=== PATIENT | female | born 1950 | race Caucasian/White ===

== ENCOUNTER 2023-09-24 16:58 | Emergency (ER) | payer MEDICARE, OTHER, SELFPAY ==
[2023-09-24 17:12] VITALS: BP 100/65
[2023-09-24 17:45] LABS: % Basophils 0.4 % (0-2); % Eosinophils 1.6 % (0-6); % Immature Granulocytes 0.5 % (0-0.5); % Lymphocytes 17.5 % (20.5-51.1); % Monocytes 9.1 % (1.7-9.3); % Neutrophils 70.9 % (42.2-75.2); Absolute Eosinophils 0.1 10^3/uL (0-0.7); Absolute Lymphocytes 1.4 10^3/uL (1.2-3.4); Absolute Monocytes 0.7 10^3/uL (0.1-0.6); Absolute Neutrophils 5.7 10^3/uL (1.4-6.5); Hematocrit 33.5 % (37.0-47.0); Hemoglobin 10.2 g/dL (12.0-16.0); Mean Corp Hgb Conc. 30.4 g/dL (33.0-37.0); Mean Corpuscular Hgb 25.1 pg (27.0-31.0); Mean Corpuscular Volume 82.5 fL (81.0-99.0); Mean Platelet Volume 8.9 fL (7.4-10.4); Nucleated Red Blood Cells % 0 %; Platelet Count 359 10^3/uL (130-400); Red Blood Cell Count 4.06 10^6/uL (4.20-5.40); Red Cell Dist. Width 16.2 % (11.5-14.5); White Blood Cell Count 8.1 10^3/uL (4.8-10.8)
[2023-09-24 17:57] LABS: INR 1.17; PT 15.1 Sec (11.4-14.6)
[2023-09-24 17:58] LABS: ALT (SGPT) 19 U/L (0-35); AST (SGOT) 23 U/L (14-36); Albumin 3.6 g/dl (3.5-5.0); Alkaline Phosphatase 124 U/L (38-126); Blood Urea Nitrogen 24 mg/dl (7-17); Calcium 8.7 mg/dl (8.4-10.2); Carbon Dioxide 30 mmol/L (22-30); Chloride 95 mmol/L (98-107); Glucose 171 mg/dl (70-99); Potassium 3.9 mmol/L (3.5-5.1); Sodium 137 mmol/L (135-145); Total Bilirubin 0.5 mg/dl (0.2-1.3); eGFR 59.12
[2023-09-24 18:24] LABS: Troponin I 0.028 ng/ml
[2023-09-24 18:30] VITALS: BP 117/66
[2023-09-24 18:37] VITALS: BMI 42.5
--- NOTE | 2023-09-24 19:07 | ED.GENMED ---
History of Present Illness
General
Chief Complaint: Dizziness
Source: patient
Exam Limitations: none
Time Seen by Provider: 09/24/23 18:34
Travel History
Have you had any contact with someone who has COVID-19?: No
Do you have any symptoms of coronavirus? Fever > 100 degrees, chills, cough, shortness of breath, sore throat, loss of taste or smell, muscle aches, or headache?: No
History of Present Illness
History of Present Illness:
This is a 72 year old female that comes in with c/o atrial fib and multiple complaints. States that the VN was there today and she was told that she is in atrial fib since September 07. States that she has been feeling dizzy and SOB. The VN called
the computer network engineer office and patient was told to come to the ER. States that she was in the hospital and discharged just before . States that she has had chest heaviness today with the SOB. nausea, vomiting a couple of times a week ago
and diarrhea this week. Sates that she also feels that around her is spinning. Denies any fever, chills, abd pain, headache, urinary burning.
Past History
Past History
ED Past Medical History: Arrthythmia (Atrial fib), Cancer (Skin Cancer), CHF, CVA, HTN, Hypercholesterolemia, IDDM, Hypothyroidism, Psychiatric (depression) and Other (Sleep apnea uses CPAP, lupus cerebritis, PNA, chronic pulmonary edema. Wells's
esophagus, C- diff, Renal calculus, UTI)
ED Past Surgical History: Cardiac (Pacemaker. TAVR), Cholecystectomy, Gynecological (Hysterectomy), Orthopedic (ORIF right ankle) and Other (Parathyroidectomy, cataracts, )
Social History
Tobacco: Non-smoker
Alcohol: None
Personal:
Living: alone
Review of Systems
Review of Systems
All Other Systems: ROS reviewed and negative except as documented in HPI and ROS
Constitutional: Reports no symptoms; Denies fever or chills
EENT: Reports no symptoms
Respiratory: Reports trouble breathing; Denies cough
Cardiac: Reports chest pain (Heaviness)
ABD/GI: Reports nausea, vomiting and diarrhea; Denies abdominal pain
: Reports no symptoms; Denies dysuria, frequency or urgency
Musculoskeletal: Reports no symptoms
Skin: Reports no symptoms
Neurological: Reports dizzy; Denies headache
Psychiatric: Reports no symptoms
Phy Exam
General Physical Exam
General Presentation: no apparent distress
General age: appears stated age
General Skin: warm and dry
General Habitus: elderly
General Mental: alert
General Hydration: appears well hydrated
ENT Exam
ENT Exam: TM's normal, pharynx normal and neck supple
Eye Exam
Eye Exam: EOMI
Cardiovascular Exam
Cardiovascular Exam: regular rate/rhythm, normal peripheral pulses and pacemaker
Pulmonary Exam
Pulmonary Exam: no respiratory distress, no rales, chest non tender, no crackles, no rhonchi, no wheezing, no cough and decreased breath sounds (at bases)
Gastrointestinal Exam
Gastrointestinal Exam: normal bowel sounds, non tender, soft, no organomegaly, no pulsatile mass and non distended
Musculoskeletal Exam
Musculoskeletal Exam: full ROM and no edema
Skin Exam
Skin Exam: normal color, warm/dry, no rash and no petechia
Psychiatric Exam
Psychiatric Exam: normal mood/affect
Course
Orders/Labs/Results
Orders:
Orders
09/24/23 17:15
Electrocardiogram (*1) Urgent
Reason for Study: Atrial Fibrillation
EKG- Treatment ONCE
09/24/23 17:40
Complete Blood Count/With Diff Urgent
Comprehensive Metabolic Panel Urgent
PT/INR [Prothrombin Time] Urgent
Troponin I Urgent
09/24/23 19:06
EKG- Treatment ONCE
CR Chest - 2 Views Urgent
Comment:
Reason For Exam: Chest pain, SOB
09/24/23 19:27
COVID-19 Antigen Urgent
Source: Nasal Swab
09/24/23 19:49
Urinalysis Reflex To Culture Urgent
Date Specimen was Collected: 09/24/23
Time Specimen was Collected: 19:38
Urine Microscopic Reflex Cult Urgent
Urine Culture Urgent
MIKAELA Source: U
Specimen Description:
Date Specimen was Collected: 09/24/23
Time Specimen was Collected: 19:38
09/24/23 20:29
CefTRIAXone [Rocephin] 1,000 mg IV NOW STA
09/24/23 20:40
Electrocardiogram (*1) Urgent
Reason for Study: Chest Pain
Other Reason for Exam: Repeat with Troponin
09/24/23 20:46
Troponin I Urgent
09/24/23 20:47
Sterile Water [Sterile Water For Injection] 10 ml .ROUTE .[facility]
Abnormal Lab Results
09/24/23 09/24/23
17:40 19:49
RBC 4.06 L 10^6/uL
(4.20-5.40)
Hgb 10.2 L g/dL
(12.0-16.0)
Hct 33.5 L %
(37.0-47.0)
MCH 25.1 L pg
(27.0-31.0)
MCHC 30.4 L g/dL
(33.0-37.0)
RDW 16.2 H %
(11.5-14.5)
Absolute Monos (auto) 0.7 H 10^3/uL
(0.1-0.6)
Lymphocytes % 17.5 L %
(20.5-51.1)
PT 15.1 H Sec
(11.4-14.6)
Chloride 95 L mmol/L
(98-107)
BUN 24 H mg/dl
(7-17)
Glucose 171 H mg/dl
(70-99)
Total Protein 6.0 L g/dl
(6.3-8.2)
Urine Bilirubin 1+ A
(Negative)
Leukocyte Esterase Rfl 1+ A
(Negative)
Urine WBC (Reflex) 50-60 A /HPF
(0-5)
Urine Bacteria (Reflex) Moderate A
(Negative)
Urine Glucose 3+ A
(Negative)
09/24/23 17:40
09/24/23 17:40
H/h low. PT 15.1 with INR 1.17, Troponin 0.028, chloride slightly low. Glucose nonfasting. Total protein low.
Positive UTI
Repeat Troponin 0.028
Vital Signs
Initial and Last Documented VS:
Initial Vital Signs
Temp Pulse Resp BP Pulse Ox
99.0 F 83 16 100/65 98
09/24/23 17:12 09/24/23 17:12 09/24/23 17:12 09/24/23 17:12 09/24/23 17:12
Last Documented Vital Signs
Temp Pulse Resp BP Pulse Ox
99.0 F 85 20 117/66 85
09/24/23 17:12 09/24/23 19:45 09/24/23 19:45 09/24/23 18:30 09/24/23 19:39
MDM/Problems Addressed
Differential Diagnosis Includes:
CHF, CT, Angina, COVID
MDM/Problems Addressed:
This is a 72 year old female that comes in with multiple complaints. States that she has had chest heaviness today and SOB. States that the VN told her that she is in atrial fib since September 07. States that she has been dizzy and has some nausea,
vomiting a couple weeks ago and diarrhea this week.
Will check labs, COVID, chest x-ray.
Back into see patient. Explained that both troponin are normal. Patient chest x-ray is normal. However, patient has a UTI and this may be causing her lightheadedness. Will give patient an antibiotic for home. Will have patient follow up with the
Frog Catcher. Patient to return with any concerns.
Chronic conditions affecting care: CAD (CHF) and Other
Acute Exacerbation and/or Progression of Chronic Illness: CAD
*Radiology
Radiology exam reviewed: radiology read reviewed (Chest-No acute cardiopulmonary process)
*Pulse Oximetry
Patient hypoxic: no
*EKG
Interpreted by ED Provider?: Yes
Heart Rate: 89
Rate: normal
Rhythm: a-fib
Whately: left axis deviation
QRS Pattern: left bundle branch block
Ischemia: no ischemia
*Signs Cleaner Interpretation
Rate: normal
Heart Rate: 86
Rhythm: ventricular paced
*Critical Care Note
Total Time (30-74mins, 75-104mins- exclusive of procedures): Not Applicable
ED Attending Note
-
Portions of this chart may have been created with voice recognition software.� Occasional wrong word or��sound alike� substitutions may have occurred due to the inherent limitations of voice recognition software.
Discharge Plan
Departure
Patient Disposition: Home (Routine Discharge)
Date of Disposition: 09/24/23
Time of Disposition: 21:43
Patient with high blood pressure during this ER visit?: No
Condition: Good
Covid-19: Not Applicable
Discharge Problem:
Urinary tract infection, Chest pain
Instructions: Urinary Tract Infection, Adult (DC), Chest Pain CBC Follow Up
Prescriptions:
New
cephalexin 500 mg capsule
500 mg PO BID 7 Days Qty: 14 0RF
No Action
hydroxychloroquine 200 MG tablet
400 mg PO HS
prednisone 1 MG tablet
1 mg PO DAILY
Rx Instructions:
08/22/2023, take with one 5 mg tablet for a total of 6 mg daily.
cevimeline [Evoxac] 30 MG capsule
30 mg PO BID
venlafaxine [Effexor XR] 150 mg Capsule,Extended Release 24hr
300 mg PO DAILY
mycophenolate mofetil [CellCept] 500 mg Tablet
500 mg PO BID
pantoprazole [Protonix] 40 mg Tablet,Delayed Release (Dr/Ec)
40 mg PO BID
rosuvastatin [Crestor] 10 mg Tablet
10 mg PO HS
solifenacin [Vesicare] 10 mg Tablet
10 mg PO DAILY
Iris SoloStar U-300 Insulin 300 unit/mL (1.5 mL) Insulin Pen
55 unit SC DAILY
dapsone 25 mg tablet
50 mg PO DAILY
fexofenadine 180 mg Tablet
180 mg PO HS
carbamazepine [Tegretol] 200 mg tablet
200 mg PO BID
levothyroxine 137 mcg Tablet
137 mcg PO DAILY
aspirin 81 mg Tablet,Delayed Release (Dr/Ec)
81 mg PO DAILY
trazodone 100 mg Tablet
100 mg PO HS
Farxiga 10 mg tablet
10 mg PO DAILY Qty: 30 3RF
famotidine 20 mg Tablet
20 mg PO HS Qty: 0 0RF
furosemide 40 mg Tablet
40 mg PO DAILY
metoprolol tartrate 100 mg Tablet
100 mg PO BID
prednisone 5 mg Tablet
5 mg PO DAILY
Rx Instructions:
08/22/2023, take with one 1 mg tablet for a total of 6 mg daily.
acetaminophen [Tylenol Extra Strength] 500 mg Tablet
1,000 mg PO BIDPRN PRN (Reason: mild pain)
ergocalciferol (vitamin D2) 1,250 mcg (50,000 unit) Capsule
1,250 mcg PO CENTENO
nystatin 100,000 unit/gram Powder
1 applic TOPICAL BID PRN (Reason: apply to B/L groin/under B/L breasts)
insulin lispro [Humalog KwikPen Insulin] 100 unit/mL Insulin Pen
0 sliding scale dose SC DIRECTED
Rx Instructions:
08/22/2023, if BS 90-150 = 0 units; 151-200 = 3 units; 201-250 = 6 units; 251-300 = 9 units; 301-350 = 12 units; >350 = 15 units.
cefuroxime axetil 500 mg Tablet
500 mg PO BID Qty: 8 0RF
Lagevrio (EUA) 200 mg Capsule
800 mg PO BID Qty: 7 0RF
furosemide [Lasix] 20 mg tablet
20 mg PO DAILY Qty: 1 0RF
Referrals:
Rojelio Hernandez MD [Active] - Follow up in 2-3 days
Susana Melendez MD [Family Provider] - Call in 1-3 days for appt
Activity Restrictions/Additional Instructions:
As discussed, your blood work shows some dehydration. Please increase your water intake daily. YOur Chest x-ray is normal. However, you have a urinary tract infection. You have been given IV antibiotic here and a prescription has been sent to your
Pharmacy. You have also been place on the Cardiology hot line. This means that you will be called by the Frog Catcher the next business day and get set up for an appointment and further evaluation. IF YOU HAVE INCREASED OR CHANGING CHEST PAIN,
SHORTNESS OF BREATH, OR YOU HAVE ANY OTHER CONCERNS PLEASE RETURN TO THE EMERGENCY ROOM.
Interventions
Interventions:
*Risk Screen - Suicide Last Done: 09/24/23 18:45
*General Assessment Last Done: 09/24/23 18:44
*Neglect/Abuse Screening Last Done: 09/24/23 18:46
*ED COVID-19 Vaccine History Last Done: 09/24/23 17:12
ED- Neurological Assessment Last Done: 09/24/23 18:42
[2023-09-24 19:57] LABS: COVID-19 Antigen Negative (Negative)
[2023-09-24 20:01] LABS: Urine Albumin Trace (Neg - Trace); Urine Bilirubin 1+ (Negative); Urine Character Slightly Cloudy (Clear); Urine Color Yellow; Urine Glucose 3+ (Negative); Urine Ketone Negative (Negative); Urine Leukocyte 1+ (Negative); Urine Nitrite Negative (Negative); Urine Occult Blood Negative (Negative); Urine Urobilinogen Negative (Neg - 1+)
[2023-09-24 20:09] LABS: Urine Hyaline Cast 0-2 /LPF (0-2); Urine Red Blood Cell 0-2 /HPF (0-2); Urine Squamous Cell 16-20 /LPF (Few); Urine White Cell 50-60 /HPF (0-5)
[2023-09-24 20:10] LABS: Urine Bacteria Moderate (Negative)
[2023-09-24] MEDS: ROCEPHIN 1000 MG IV (20:49)
[2023-09-24 21:15] LABS: Troponin I 0.028 ng/ml
== END 2023-09-24 22:02 | disposition home or self-care (01) ==
LOC: EMR 16:58
PROVIDERS: Clinical Nurse Specialist Family Health; Emergency Medicine; EMERGENCY PHYSICIAN Emergency Medicine; FAMILY PHYSICIAN Student in an Organized Health Care Education/Training Program
DX: N39.0 Urinary tract infection, site not specified (principal); R07.89 Other chest pain; I48.91 Unspecified atrial fibrillation; R06.02 Shortness of breath; I11.0 Hypertensive heart disease with heart failure; I50.9 Heart failure, unspecified; E78.00 Pure hypercholesterolemia, unspecified; E11.9 Type 2 diabetes mellitus without complications; E03.9 Hypothyroidism, unspecified; F32.A Depression, unspecified; G47.30 Sleep apnea, unspecified; I25.119 Atherosclerotic heart disease of native coronary artery with unspecified angina pectoris; Z85.828 Personal history of other malignant neoplasm of skin; Z86.73 Personal history of transient ischemic attack (TIA), and cerebral infarction without residual deficits; Z87.19 Personal history of other diseases of the digestive system; Z87.440 Personal history of urinary (tract) infections; Z87.442 Personal history of urinary calculi; Z90.49 Acquired absence of other specified parts of digestive tract; Z90.710 Acquired absence of both cervix and uterus; Z95.0 Presence of cardiac pacemaker
CPT/HCPCS: 99283; 71046; 80053; 81003; 81015; 84484; 85025; 85610; 87077; 87086; 87186; 87811; 93005

== ENCOUNTER 2023-10-08 07:12 | Day surgery (SDC) | payer MEDICARE, OTHER, SELFPAY ==
[2023-10-08 08:06] VITALS: BMI 36.4
[2023-10-08 08:11] LABS: Glucose - Point of Care 226 mg/dl (70-99)
== END 2023-10-08 09:10 | disposition home or self-care (01) ==
LOC: CATH 07:12
PROVIDERS: ATTENDING PHYSICIAN Internal Medicine Cardiovascular Disease; FAMILY PHYSICIAN Student in an Organized Health Care Education/Training Program
DX: I48.91 Unspecified atrial fibrillation (principal); I48.92 Unspecified atrial flutter; I11.0 Hypertensive heart disease with heart failure; I50.32 Chronic diastolic (congestive) heart failure; I25.10 Atherosclerotic heart disease of native coronary artery without angina pectoris; Z95.5 Presence of coronary angioplasty implant and graft; I44.7 Left bundle-branch block, unspecified; Z95.0 Presence of cardiac pacemaker; E78.5 Hyperlipidemia, unspecified; E11.9 Type 2 diabetes mellitus without complications; E03.9 Hypothyroidism, unspecified; G47.33 Obstructive sleep apnea (adult) (pediatric); K21.9 Gastro-esophageal reflux disease without esophagitis; Z86.16 Personal history of COVID-19; Z79.84 Long term (current) use of oral hypoglycemic drugs; Z79.4 Long term (current) use of insulin
CPT/HCPCS: 82962; 92960; 93005

== ENCOUNTER → 2023-10-15 10:35 | Outpatient (REF) | payer MEDICARE, OTHER, SELFPAY ==
[2023-10-15 10:56] LABS: Albumin 3.3 g/dl (3.5-5.0); Blood Urea Nitrogen 19 mg/dl (7-17); Calcium 7.5 mg/dl (8.4-10.2); Carbon Dioxide 33 mmol/L (22-30); Chloride 99 mmol/L (98-107); Glucose 168 mg/dl (70-99); Phosphorus 4.5 mg/dl (2.5-4.5); Potassium 3.4 mmol/L (3.5-5.1); Sodium 136 mmol/L (135-145); eGFR 59.12
== END ==
LOC: CLAB 10:35
PROVIDERS: ATTENDING PHYSICIAN Student in an Organized Health Care Education/Training Program
DX: I50.1 Left ventricular failure, unspecified (principal)
CPT/HCPCS: 36415; 80069

== ENCOUNTER 2023-10-22 10:32 | Outpatient (RCR) | payer MEDICARE, OTHER, SELFPAY ==
[2023-10-22] VITALS (10 sets, daily range): BP systolic 99–137; BP diastolic 40–73
[2023-10-22] MEDS: BENADRYL 25 MG PO (11:17)
[2023-10-22] MEDS: TYLENOL 650 MG PO (11:17)
[2023-10-22] MEDS: GAMMAGARD 200 IV ×2 (11:23→13:25)
[2023-10-22 12:30] LABS: IgG 378 mg/dl (700-1600)
== END 2023-10-25 23:59 | disposition home or self-care (01) ==
LOC: OID 10:32
PROVIDERS: ATTENDING PHYSICIAN Allergy & Immunology; FAMILY PHYSICIAN Student in an Organized Health Care Education/Training Program
DX: D80.8 Other immunodeficiencies with predominantly antibody defects (principal); D80.9 Immunodeficiency with predominantly antibody defects, unspecified (principal); M32.9 Systemic lupus erythematosus, unspecified; I50.32 Chronic diastolic (congestive) heart failure; I48.0 Paroxysmal atrial fibrillation; M06.9 Rheumatoid arthritis, unspecified; Z95.2 Presence of prosthetic heart valve; M35.00 Sjogren syndrome, unspecified
CPT/HCPCS: 82784; 96365; 96366; J1569

== ENCOUNTER → 2023-10-25 11:14 | Outpatient (REF) | payer MEDICARE, OTHER, SELFPAY ==
[2023-10-25 12:48] LABS: Blood Urea Nitrogen 25 mg/dl (7-17); Calcium 8.4 mg/dl (8.4-10.2); Carbon Dioxide 35 mmol/L (22-30); Chloride 99 mmol/L (98-107); Glucose 262 mg/dl (70-99); Sodium 139 mmol/L (135-145); eGFR > 60.00
== END ==
LOC: OLAB 11:14
PROVIDERS: ATTENDING PHYSICIAN Internal Medicine; FAMILY PHYSICIAN Student in an Organized Health Care Education/Training Program
DX: I50.33 Acute on chronic diastolic (congestive) heart failure (principal)
CPT/HCPCS: 36415; 80048

== ENCOUNTER 2023-11-14 22:04 | Inpatient (IN) | payer MEDICARE, OTHER, SELFPAY ==
[2023-11-14] VITALS (9 sets, daily range): BP systolic 95–143; BP diastolic 58–88; PULSE 80–95; BMI 36.8
[2023-11-14 18:59] LABS: % Basophils 0.1 % (0-2); % Eosinophils 0.8 % (0-6); % Immature Granulocytes 0.5 % (0-0.5); % Lymphocytes 10.9 % (20.5-51.1); % Monocytes 7.6 % (1.7-9.3); % Neutrophils 80.1 % (42.2-75.2); Absolute Eosinophils 0.1 10^3/uL (0-0.7); Absolute Lymphocytes 0.9 10^3/uL (1.2-3.4); Absolute Monocytes 0.6 10^3/uL (0.1-0.6); Absolute Neutrophils 6.4 10^3/uL (1.4-6.5); Hematocrit 29.9 % (37.0-47.0); Hemoglobin 9.2 g/dL (12.0-16.0); Mean Corp Hgb Conc. 30.8 g/dL (33.0-37.0); Mean Corpuscular Hgb 24.3 pg (27.0-31.0); Mean Corpuscular Volume 79.1 fL (81.0-99.0); Mean Platelet Volume 9.2 fL (7.4-10.4); Nucleated Red Blood Cells % 0 %; Platelet Count 281 10^3/uL (130-400); Red Blood Cell Count 3.78 10^6/uL (4.20-5.40); Red Cell Dist. Width 17.2 % (11.5-14.5)
[2023-11-14 19:12] LABS: ALT (SGPT) 17 U/L (0-35); AST (SGOT) 23 U/L (14-36); Albumin 3.5 g/dl (3.5-5.0); Alkaline Phosphatase 148 U/L (38-126); Blood Urea Nitrogen 17 mg/dl (7-17); Calcium 7.9 mg/dl (8.4-10.2); Carbon Dioxide 30 mmol/L (22-30); Chloride 97 mmol/L (98-107); Estimated Creatinine Clearance 83 ml/min; Glucose 167 mg/dl (70-99); Potassium 3.3 mmol/L (3.5-5.1); Sodium 135 mmol/L (135-145); Total Bilirubin 0.4 mg/dl (0.2-1.3); eGFR > 60.00
--- NOTE | 2023-11-14 19:21 | ED.GENMED ---
History of Present Illness
<Liz Ro PA-C - Last Filed: 11/14/23 23:38>
General
Chief Complaint: Fainting Sensation
Source: patient and family
Exam Limitations: none
Time Seen by Provider: 11/14/23 18:28
Nursing documentation reviewed up to this point in time: agreed with
Travel History
Have you had any contact with someone who has COVID-19?: No
Do you have any symptoms of coronavirus? Fever > 100 degrees, chills, cough, shortness of breath, sore throat, loss of taste or smell, muscle aches, or headache?: No
History of Present Illness
History of Present Illness:
pt is a72 y/o F with h/o s/p TAVR 06/2023
afib s/p ablation 3 weeks ago
chf on lasix 60 mg daily (christin vang, irina); 60 mg bid M,W,F and if pt is > 214 pounds;
she is here because of a near syncope episode when she was walking to the bathroom this evening. she says she stood and felt lightheaded, which she normally has since her TAVR. she was able to take some steps and halways there stopped because she
wasn't sure if she was jose luis to make it but says that she was holding onto her walker and steadied herself and got to the bathroom but then felt globally weak, like her legs gave out adn she lowered self to the ground on butt. no head strike
sh eis on thinners
daughter helped her up
in bed she feels fine but up on her feet she feels lightheaded all the time
she is on metoprolol 100 mg bid
the past 3 days she has had ewieght > 214 so she has been doing bid dosing of her lasix 60 mg
she feels frustrated because she has to urinate all the time. and still feels SOB.
Past History
<Liz Ro PA-C - Last Filed: 11/14/23 23:38>
Past History
ED Past Medical History: Arrthythmia (Atrial fib), Cancer (Skin Cancer), CHF, CVA, HTN, Hypercholesterolemia, IDDM, Hypothyroidism, Psychiatric (depression) and Other (Sleep apnea uses CPAP, lupus cerebritis, PNA, chronic pulmonary edema. Wells's
esophagus, C- diff, Renal calculus, UTI)
ED Past Surgical History: Cardiac (Pacemaker. TAVR), Cholecystectomy, Gynecological (Hysterectomy), Orthopedic (ORIF right ankle) and Other (Parathyroidectomy, cataracts, )
Social History
Tobacco: Non-smoker
Alcohol: None
Personal:
Living: alone
Review of Systems
<SONIDO Candelario Last Filed: 11/14/23 23:38>
Review of Systems
Allergies reviewed?: Yes
All Other Systems: Not applicable
Phy Exam
<SONIDO Candelario Last Filed: 11/14/23 23:38>
Physical Exam
Physical Exam:
GENERAL: Alert , in no apparent distress
EYE: pupils equal and reactive
NECK: Supple
ENT: o/p clr, mmm.
CARDIAC: Regular rate and rhythm .mild edema
right upper [place]
left upper chest wall pacer
LUNGS: no obviuos crackels, no resp distress,
ABDOMEN: Soft, without focal tenderness, no r/g, no cvat, normal bowel sounds
NEUROLOGICAL: Alert and oriented, no focal neuro deficits
SKIN: Warm and dry, superficial abrasion right foremarm
MUSCULOSKELETAL: mild edema, well perfused. neg ludwig's sign
full rom of elbow/forearm/wirst
PSYCH: Normal and appropriate interaction.
Course
<SONIDO Candelario Last Filed: 11/14/23 23:38>
Orders/Labs/Results
Orders:
Orders
11/14/23 Dinner
1800 calorie (15 carb) Diabetic
At Your Request: Full Participation
Fluid Restriction: 1440 mL/day (48 oz)
11/14/23 18:01
EKG [Electrocardiogram (*1)] Urgent
Reason for Study: Other
Other Reason for Exam: near syncope
11/14/23 18:02
EKG- Treatment ONCE
11/14/23 18:40
Complete Blood Count/With Diff Urgent
Comprehensive Metabolic Panel Urgent
NT-proBNP Urgent
Comment: ADD ON
Troponin I Urgent
11/14/23 19:21
Orthostatic VS- Treatment ONCE
11/14/23 19:26
0.9% Sodium Chloride 250 ml [Nss] 250 ml IV BOLUS
11/14/23 19:27
Potassium Chloride [KCl] 20 meq PO NOW STA
11/14/23 19:34
CR Chest - 2 Views Urgent
Comment:
Reason For Exam: near syncope, chf
11/14/23 20:20
Add On- LAB Urgent
Tests Added?: bnp
11/14/23 21:30
Admit/Transfer Patient As Directed
Co-Sign Provider:
Level of Care: Inpatient admission
Assign to:: Telemetry
Physician / Group: cristopher velazco
Diagnosis: orthostatic hypotension 2/2 to overdiuresis , hypokalemia
Reason for Telemetry: Arrhythmia
Date to Stop Telemetry: 11/17/23
Time to Stop Telemetry: 11:00
Reason for Hospitalization: orthostatic hypotension 2/2 to overdiuresis , hypokalemia
Expected length of stay greater than two midnights?: Yes
ELOS- Estimated Length of Stay in days: 3
I certify the patient meets the requirements for IP care: Yes
Code Status As Directed
Resuscitation Status: Full Code
11/14/23 22:22
Dextrose 50%-Water [Dextrose 50% Syringe] 12.5 grams IV [id number] PRN
Famotidine [Pepcid] 20 mg PO HS
Glucagon [GlucaGen] 1 mg IM PRN PRN
Hydroxychloroquine [Plaquenil] 400 mg PO HS
Rosuvastatin Calcium [Crestor] 10 mg PO HS
Trazodone [Desyrel] 100 mg PO HS
11/14/23 22:22
VTE Contraindication Routine
VTE Mechanical Device Contraindication: Medical Contraindication
Pharmocologic Contraindication: Medical Contraindication
Comment: pt on eliquis
Activity As Directed
Activity Level: With Assistance
Bedside Glucose Monitoring As Directed
Frequency: AC&HS
Comment: Change to q6h if pt on TPN, tube feeding or not eating
Intake/ Output As Directed
Frequency: Per unit guidelines
Orthostatic Vital Signs As Directed
Orthostatic VS Frequency: BID
Vital Signs As Directed
Frequency: Per unit guidelines
Weight As Directed
Frequency: Daily
O2 Therapy [RESP] Routine
Nasal Cannula Liter Flow: 2 LPM
Titrate/Wean O2 to maintain O2 sat greater than (%): 90
Special Instructions: wears nasal cpillow at hs with 2 ltiers
Ot Eval And Treat Routine
Pt Eval And Treat Routine
Activity Level: As Tolerated
11/14/23 23:00
Loratadine [Claritin] 10 mg PO HS
11/15/23 06:00
Basic Metabolic Panel IN AM
Complete Blood Count/With Diff IN AM
Glycohemoglobin (HgbA1c) IN AM
11/15/23 07:00
Levothyroxine [Synthroid] 137 mcg PO DAILY@0700
11/15/23 07:30
Insulin Aspart Corrective Low [Novolog Flexpen-Low Resistance] See Protocol SC AC
11/15/23 08:00
Apixaban [Eliquis] 5 mg PO BID
Aspirin Low Dose EC [Aspir Low (Enteric Coated)] 81 mg PO DAILY
Carbamazepine [Tegretol] 200 mg PO BID
Dapagliflozin [Farxiga] 10 mg PO DAILY
Dapsone 50 mg PO DAILY
Insulin Glargine Lantus [Lantus] 43 units Subcutaneous Insulin Syringe [Syringe-Insulin] 0 unit SC DAILY
Metoprolol [Lopressor] 100 mg PO BID
Mycophenolate Mofetil 500 mg PO BID
Pantoprazole [Protonix] 40 mg PO BID
Prednisone [Deltasone] 1 mg PO DAILY
Prednisone [Deltasone] 5 mg PO DAILY
Tolterodine Extended Release [Detrol LA] 4 mg PO DAILY
Venlafaxine Extended Release [Effexor Xr] 300 mg PO DAILY
cevimeline [Evoxac] 30 mg PO BID
11/16/23 06:00
Basic Metabolic Panel IN AM
Complete Blood Count/With Diff IN AM
11/17/23 06:00
Basic Metabolic Panel IN AM
Complete Blood Count/With Diff IN AM
11/17/23 11:00
DC Protocol for Telemetry ONCE
11/18/23 08:00
Ergocalciferol [Drisdol (Vitamin D2)] 50,000 units PO CENTENO
Abnormal Lab Results
11/14/23
18:40
RBC 3.78 L 10^6/uL
(4.20-5.40)
Hgb 9.2 L g/dL
(12.0-16.0)
Hct 29.9 L %
(37.0-47.0)
MCV 79.1 L fL
(81.0-99.0)
MCH 24.3 L pg
(27.0-31.0)
MCHC 30.8 L g/dL
(33.0-37.0)
RDW 17.2 H %
(11.5-14.5)
Absolute Lymphs (auto) 0.9 L 10^3/uL
(1.2-3.4)
Neutrophils % 80.1 H %
(42.2-75.2)
Lymphocytes % 10.9 L %
(20.5-51.1)
Potassium 3.3 L mmol/L
(3.5-5.1)
Chloride 97 L mmol/L
(98-107)
Glucose 167 H mg/dl
(70-99)
Calcium 7.9 L mg/dl
(8.4-10.2)
Alkaline Phosphatase 148 H U/L
(38-126)
Total Protein 6.0 L g/dl
(6.3-8.2)
11/14/23 18:40
11/14/23 18:40
Vital Signs
Initial and Last Documented VS:
Initial Vital Signs
Temp Pulse Resp BP Pulse Ox
98.2 F 92 27 143/72 94
11/14/23 18:03 11/14/23 18:03 11/14/23 18:03 11/14/23 18:03 11/14/23 18:03
Last Documented Vital Signs
Temp Pulse Resp BP Pulse Ox
98.2 F 84 16 122/75 92
11/14/23 18:03 11/14/23 21:00 11/14/23 21:00 11/14/23 21:00 11/14/23 21:00
Odalislt;Trent Betancur, - Last Filed: 11/14/23 19:39>
Orders/Labs/Results
Orders:
Orders
11/14/23 Dinner
1800 calorie (15 carb) Diabetic
At Your Request: Full Participation
Fluid Restriction: 1440 mL/day (48 oz)
11/14/23 18:01
EKG [Electrocardiogram (*1)] Urgent
Reason for Study: Other
Other Reason for Exam: near syncope
11/14/23 18:02
EKG- Treatment ONCE
11/14/23 18:40
Complete Blood Count/With Diff Urgent
Comprehensive Metabolic Panel Urgent
NT-proBNP Urgent
Comment: ADD ON
Troponin I Urgent
11/14/23 19:21
Orthostatic VS- Treatment ONCE
11/14/23 19:26
0.9% Sodium Chloride 250 ml [Nss] 250 ml IV BOLUS
11/14/23 19:27
Potassium Chloride [KCl] 20 meq PO NOW STA
11/14/23 19:34
CR Chest - 2 Views Urgent
Comment:
Reason For Exam: near syncope, chf
11/14/23 20:20
Add On- LAB Urgent
Tests Added?: bnp
11/14/23 21:30
Admit/Transfer Patient As Directed
Co-Sign Provider:
Level of Care: Inpatient admission
Assign to:: Telemetry
Physician / Group: cristopher velazco
Diagnosis: orthostatic hypotension 2/2 to overdiuresis , hypokalemia
Reason for Telemetry: Arrhythmia
Date to Stop Telemetry: 11/17/23
Time to Stop Telemetry: 11:00
Reason for Hospitalization: orthostatic hypotension 2/2 to overdiuresis , hypokalemia
Expected length of stay greater than two midnights?: Yes
ELOS- Estimated Length of Stay in days: 3
I certify the patient meets the requirements for IP care: Yes
Code Status As Directed
Resuscitation Status: Full Code
11/14/23 22:22
Dextrose 50%-Water [Dextrose 50% Syringe] 12.5 grams IV [id number] PRN
Famotidine [Pepcid] 20 mg PO HS
Glucagon [GlucaGen] 1 mg IM PRN PRN
Hydroxychloroquine [Plaquenil] 400 mg PO HS
Rosuvastatin Calcium [Crestor] 10 mg PO HS
Trazodone [Desyrel] 100 mg PO HS
11/14/23 22:22
VTE Contraindication Routine
VTE Mechanical Device Contraindication: Medical Contraindication
Pharmocologic Contraindication: Medical Contraindication
Comment: pt on eliquis
Activity As Directed
Activity Level: With Assistance
Bedside Glucose Monitoring As Directed
Frequency: AC&HS
Comment: Change to q6h if pt on TPN, tube feeding or not eating
Intake/ Output As Directed
Frequency: Per unit guidelines
Orthostatic Vital Signs As Directed
Orthostatic VS Frequency: BID
Vital Signs As Directed
Frequency: Per unit guidelines
Weight As Directed
Frequency: Daily
O2 Therapy [RESP] Routine
Nasal Cannula Liter Flow: 2 LPM
Titrate/Wean O2 to maintain O2 sat greater than (%): 90
Special Instructions: wears nasal cpillow at hs with 2 ltiers
Ot Eval And Treat Routine
Pt Eval And Treat Routine
Activity Level: As Tolerated
11/14/23 23:00
Loratadine [Claritin] 10 mg PO HS
11/15/23 06:00
Basic Metabolic Panel IN AM
Complete Blood Count/With Diff IN AM
Glycohemoglobin (HgbA1c) IN AM
11/15/23 07:00
Levothyroxine [Synthroid] 137 mcg PO DAILY@0700
11/15/23 07:30
Insulin Aspart Corrective Low [Novolog Flexpen-Low Resistance] See Protocol SC AC
11/15/23 08:00
Apixaban [Eliquis] 5 mg PO BID
Aspirin Low Dose EC [Aspir Low (Enteric Coated)] 81 mg PO DAILY
Carbamazepine [Tegretol] 200 mg PO BID
Dapagliflozin [Farxiga] 10 mg PO DAILY
Dapsone 50 mg PO DAILY
Insulin Glargine Lantus [Lantus] 43 units Subcutaneous Insulin Syringe [Syringe-Insulin] 0 unit SC DAILY
Metoprolol [Lopressor] 100 mg PO BID
Mycophenolate Mofetil 500 mg PO BID
Pantoprazole [Protonix] 40 mg PO BID
Prednisone [Deltasone] 1 mg PO DAILY
Prednisone [Deltasone] 5 mg PO DAILY
Tolterodine Extended Release [Detrol LA] 4 mg PO DAILY
Venlafaxine Extended Release [Effexor Xr] 300 mg PO DAILY
cevimeline [Evoxac] 30 mg PO BID
11/16/23 06:00
Basic Metabolic Panel IN AM
Complete Blood Count/With Diff IN AM
11/17/23 06:00
Basic Metabolic Panel IN AM
Complete Blood Count/With Diff IN AM
11/17/23 11:00
DC Protocol for Telemetry ONCE
11/18/23 08:00
Ergocalciferol [Drisdol (Vitamin D2)] 50,000 units PO CENTENO
Abnormal Lab Results
11/14/23
18:40
RBC 3.78 L 10^6/uL
(4.20-5.40)
Hgb 9.2 L g/dL
(12.0-16.0)
Hct 29.9 L %
(37.0-47.0)
MCV 79.1 L fL
(81.0-99.0)
MCH 24.3 L pg
(27.0-31.0)
MCHC 30.8 L g/dL
(33.0-37.0)
RDW 17.2 H %
(11.5-14.5)
Absolute Lymphs (auto) 0.9 L 10^3/uL
(1.2-3.4)
Neutrophils % 80.1 H %
(42.2-75.2)
Lymphocytes % 10.9 L %
(20.5-51.1)
Potassium 3.3 L mmol/L
(3.5-5.1)
Chloride 97 L mmol/L
(98-107)
Glucose 167 H mg/dl
(70-99)
Calcium 7.9 L mg/dl
(8.4-10.2)
Alkaline Phosphatase 148 H U/L
(38-126)
Total Protein 6.0 L g/dl
(6.3-8.2)
11/14/23 18:40
11/14/23 18:40
Vital Signs
Initial and Last Documented VS:
Initial Vital Signs
Temp Pulse Resp BP Pulse Ox
98.2 F 92 27 143/72 94
11/14/23 18:03 11/14/23 18:03 11/14/23 18:03 11/14/23 18:03 11/14/23 18:03
Last Documented Vital Signs
Temp Pulse Resp BP Pulse Ox
98.2 F 84 16 122/75 92
11/14/23 18:03 11/14/23 21:00 11/14/23 21:00 11/14/23 21:00 11/14/23 21:00
<Liz Ro PA-C - Last Filed: 11/14/23 23:38>
MDM/Problems Addressed
Differential Diagnosis Includes:
near syncope, orthostasis, dysrhythmia
MDM/Problems Addressed:
72 y/o F with h/o TAVR 06/2023, pacer for complete heart block, afib s/p cardioversion 3 weeks ago on eliquis, chf on lasix, lupus on immune suppressants; here with near syncope and orthostatic hypotension; got lightheaded with standing and legs
weak and fell but no head strike, onto buttocks; here patient was orthostati with standing, dropped bp significantly and felt lightheaded briefly before being able to walk to the bathroom
; has a pacer but we cannot interrogate because the equipment is down, rep coming tomorrow;
perhaps pt overdiuresced vs. overmedicated with bb
d/w ed attending
we did not feel comfortable d/c home without pacer interrogation
will give chance to slowly hydrate
cards consult
<Liz Ro PA-C - Last Filed: 11/14/23 23:38>
*Critical Care Note
Total Time (30-74mins, 75-104mins- exclusive of procedures): Not Applicable
ED Attending Note
<Liz Ro PA-C - Last Filed: 11/14/23 23:38>
-
Portions of this chart may have been created with voice recognition software.� Occasional wrong word or��sound alike� substitutions may have occurred due to the inherent limitations of voice recognition software.
<Trent Betancur DO - Last Filed: 11/14/23 19:39>
ED Attending Note
Patient seen and examined by attending physician: Yes
I performed the substantive portion of visit, reviewed & personally made and approve the management plan that is documented in note by myself or YAZMIN.: Yes
ED Attending Note:
Seen with TEE examined independently by ankush 72-year-old female melanoma survivor lupus TAVR procedure AF pacemaker has been having issues with dizziness weakness orthostasis heart failure since the procedure looks orthostatic here she is
anticoagulated will interrogate her device, check chest x-ray proBNP consideration for gentle hydration
Discharge Plan
Departure
Patient Disposition: Admit
Date of Disposition: 11/14/23
Time of Disposition: 20:32
Admit to: Telemetry
Presentation/result/management discussed w/ accepting MD/DO: Hospitalist
Condition: Fair
Covid-19: Not Applicable
Discharge Problem:
Orthostatic hypotension
Interventions
Interventions:
*Risk Screen - Suicide Last Done: 11/14/23 18:03
*General Assessment Last Done: 11/14/23 18:03
*Neglect/Abuse Screening Last Done: 11/14/23 18:03
ED- Fall Risk Assessment Last Done: 11/14/23 18:11
*ED COVID-19 Vaccine History Last Done: 11/14/23 18:03
ED- Cardiac Assessment Last Done: 11/14/23 18:11
ED- Neurological Assessment Last Done: 11/14/23 18:11
[2023-11-14 19:22] LABS: Troponin I 0.028 ng/ml
[2023-11-14] MEDS: KCL 20 MEQ PO (19:49)
[2023-11-14] MEDS: NSS 250 IV (19:52)
--- NOTE | 2023-11-14 21:03 | HPS.HSE ---
Addendum entered and electronically signed by Ora Colby MD 11/14/23 21:50:
Patient seen and examined independently with MOTORIZED SQUAD SERGEANT. 72-year-old female past medical history of atrial fibrillation status post ablation 3 weeks ago, permanent pacemaker, sleep apnea on CPAP, lupus, rheumatoid arthritis, Sjogren's, hypothyroidism,
diabetes, chronic anemia, GERD/Wells's esophagus, hyperlipidemia, anxiety, presenting with near syncopal episode while walking to the bathroom with lightheadedness and sustaining a right forearm skin tear. She underwent TAVR in June and since
then she has been ongoing lightheadedness.
Orthostatics positive likely due to overdiuresis. Hypokalemia secondary to diuretics hold diuretics for now, will need cardiology input for managing her diuretics. Replete potassium.
Original Note:
Family Physician
-
Family Physician: Susana Melendez MD
Chief Complaint
-
Dizziness, lightheadedness
History of Present Illness
72-year-old female who had near syncopal episode when she was walking to the bathroom this evening. She reports feeling lightheaded while holding onto her walker she paused to stop and steady herself she felt her legs are getting give out so she
lowered herself to the ground. She reports sustaining a right forearm skin tear while lowering herself to the ground. She reports having weight gain of 2 pounds over the past 3 days so she increased her Lasix from 60 mg daily (tuthSaSu) to 60 mg
twice daily for the past 3 days. She is status post A-fib ablation 10/08/2023. She has past medical history of CHF, A-fib, pacemaker, TAVR HTN, HLD, DM2, hypothyroidism, RA, systemic lupus depression, sleep apnea uses CPAP, lupus cerebritis, PNA,
Wells's esophagus, C. difficile, renal calculi, UTI, skin cancer.
Medical History
Past Medical History
Past Medical History: Reports Other
Additional Past Medical History:
Coronary Artery Disease s/p Stent
Aortic Stenosis s/p TAVR
Chronic HFpEF
Heart Block s/p Pacemaker
Essential Hypertension
Hyperlipidemia
Diabetes Mellitus, Type II
Diabetic Neuropathy
Hypothyroidism
Cognitive Dysfunction
Obstructive Sleep Apnea
GERD
Wells Esophagus
Sjogren's Syndrome
Rheumatoid Arthritis
Lupus
Depression
Past Surgical History: Reports Other
Additional Past Surgical History:
A-fib ablation 10/08/2023
TAVR
Permanent Pacemaker
Port Placement
Cholecystectomy
Lithotripsy
Rhizotomy
Resection of Malignant Melanoma
ORIF Right Ankle
Parathyroidectomy
Social History
Tobacco: Non-smoker
Alcohol: None
Drug: None
Living: With Family
Employment: Retired (RN)
Family History
Family History: Not pertinent
Allergies / Home Medications
Allergies reflects when Allergies were last updated in [facility].
Home Medications with original date entered in [facility]
Allergy/Medication List:
Allergies
Allergy/AdvReac Type Severity Reaction Status Date / Time
Iodinated Contrast Media Allergy Severe Anaphylaxis Verified 11/14/23 18:10
[IV Dye, Iodine Containing
Contrast ]
armodafinil [From Nuvigil] AdvReac Severe MAKES PT Verified 11/14/23 18:10
SUICIDAL,
Agnieszka
azathioprine sodium AdvReac Severe 105 FEVER Verified 11/14/23 18:10
[From Imuran]
gabapentin AdvReac Severe agnieszka Verified 11/14/23 18:10
morphine sulfate AdvReac Severe 'HALLUCINAT Verified 11/14/23 18:10
[From MS Contin] IONS'
ondansetron AdvReac Severe lost BP Verified 11/14/23 18:10
and pulse
vilazodone HCl [From Viibryd] AdvReac Severe 'MANIC' Verified 11/14/23 18:10
adhesive AdvReac Mild Skin tears Verified 11/14/23 18:10
Home Medications
hydroxychloroquine 200 mg tablet 400 mg PO HS Autoimmune Disorder 03/16/15
cevimeline 30 mg capsule (Evoxac) 30 mg PO BID DRY MOUTH 02/01/21
insulin glargine U-300 conc 300 unit/mL (1.5 mL) subcutaneous pen (Toujeo SoloStar U-300 Insulin) 54 unit SC DAILY Diabetes 05/15/22
mycophenolate mofetil 500 mg tablet (CellCept) 500 mg PO BID Immunosuppressant 05/15/22
pantoprazole 40 mg tablet,delayed release (Protonix) 40 mg PO BID Gastrointestinal issue 05/15/22
rosuvastatin 10 mg tablet (Crestor) 10 mg PO HS High cholesterol 05/15/22
solifenacin 10 mg tablet (Vesicare) 10 mg PO DAILY Urinary issue 05/15/22
venlafaxine 150 mg capsule,extended release 24 hr (Effexor XR) 300 mg PO DAILY Mental Health/Anxiety 05/15/22
dapsone 25 mg tablet 50 mg PO DAILY lupus 05/17/22
carbamazepine 200 mg tablet (Tegretol) 200 mg PO BID trigeminal neuralgia 11/06/22
fexofenadine 180 mg tablet 180 mg PO HS Allergies 11/06/22
levothyroxine 137 mcg tablet 137 mcg PO DAILY Thyroid 12/04/22
trazodone 100 mg tablet 100 mg PO HS Sleep 07/12/23
dapagliflozin propanediol 10 mg tablet (Farxiga) 10 mg PO DAILY Diabetes #30 tabs 07/17/23
famotidine 20 mg tablet 20 mg PO HS #0 tabs 08/10/23
ergocalciferol (vitamin D2) 1,250 mcg (50,000 unit) capsule 1,250 mcg PO CENTENO Supplement 08/22/23
insulin lispro 100 unit/mL subcutaneous pen (Humalog KwikPen (U-100) Insulin) 0 sliding scale dose SC AC Diabetes 08/22/23
metoprolol tartrate 100 mg tablet 100 mg PO BID Blood Pressure 08/22/23
prednisone 5 mg tablet 5 mg PO DAILY Immunosuppressant 08/22/23
furosemide 40 mg tablet (Lasix) 60 mg PO SUTUTHSA 10/22/23
Lasix 60 mg PO MOWEFR 11/14/23
apixaban 5 mg tablet (Eliquis) 5 mg PO BID 11/14/23
aspirin 81 mg tablet,delayed release 81 mg PO DAILY 11/14/23
prednisone 1 mg tablet 1 mg PO DAILY 11/14/23
Review of Systems
-
History Source: Patient and Family (daughter )
A 12 point ROS was completed and negative except as noted: Yes
Constitutional: Denies Fever
EENT: Denies Tearing or Runny Nose
Respiratory: Denies Cough or Trouble Breathing
Cardiac: Denies Chest Pain, Diaphoresis, Palpitations or Syncope
Abdomen/GI: Denies Abdominal Pain, Nausea, Vomiting, Diarrhea, Constipated or Bloody Stools
: Denies Dysuria, Frequency, Flank Pain, Incontinence or Difficulty Voiding
Musculoskeletal: Denies Joint Pain
Skin: Denies Itching or Rash
Neurological: Reports Dizzy and Weakness; Denies Headache
Endocrine: Reports No Symptoms
Hematologic/Lymphatic: Reports No Symptoms
Psych: Reports Calm
Physical Exam
Vital Signs
Vital Signs
Temp Pulse Resp BP Pulse Ox
98.2 F 84 16 122/75 92
11/14/23 18:03 11/14/23 21:00 11/14/23 21:00 11/14/23 21:00 11/14/23 21:00
Physical Exam
General: Comfortable and Conversant; No Pain, Fever or Chills
HEENT: NormoCephalic, Anicteric, Moist mucous membranes, PERRLA, [place] Conjunctivae and No Ptosis
Respiratory: Clear; No Wheezes, Rales or Rhonchi
Cardiac: S1/S2 and Regular Rhythm; No Murmur, Rub, Gallop or Peripheral Edema
Breast: Deferred by me
GI: Soft, Non Tender, Non Distended, Normal Bowel Sounds and No Hepatosplenomegaly
Rectal: Deferred by Provider
Genito-urinary: Deferred by me
Musculoskeletal: No Clubbing, No Cyanosis and No Edema
Skin: Warm and Dry; No Rash
Neuro: AO x 3, No Motor Deficits, Nonfocal/grossly intact, Cranial Nerves Intact and No Sensory Deficits; No Slurred Speech, Facial Droop or Tremors
Psych: Calm
Laboratory Results
-
11/14/23 18:40
11/14/23 18:40
Laboratory Results
Total Bilirubin 0.4 mg/dl (0.2-1.3) 11/14/23 18:40
AST 23 U/L (14-36) 11/14/23 18:40
ALT 17 U/L (0-35) 11/14/23 18:40
Alkaline Phosphatase 148 U/L (38-126) H 11/14/23 18:40
Troponin I 0.028 ng/ml 11/14/23 18:40
Impression/Plan
-
Impression/plan:
Admit to telemetry
#Orthostatic hypotension given recent increased diuretic use
recently increased lasix to 60 mg bid for the last 3 days(11/10,11/11,11/12) versus --sun
Supine 139/65, HR 80
Sitting 121/73, HR 90
Standing 95/60, HR 95
-cont metoprolol tartrate 100 mg twice daily with hold parameters
-Consult CBC cardiology regarding Lasix dosage administration resumption and instructions for wt gain
#Hypokalemia secondary to increased diuretic use
K3.3
-Give KCl 40 mEq now
follow bmp
#Pacemaker permanent
#A-fib
#Ablation approximately 10/08/2023
-Continue Eliquis 5 mg twice daily
-cont metoprolol 100 mg bid with hold parameters
#Lupus hx
-Continue dapsone, hydroxychloroquine 400 mg at bedtime
#Rheumatoid arthritis on immunosuppressant
-CellCept 500 mg twice daily, prednisone 6 mg daily
#Hypothyroidism
-Continue levothyroxine 137 mg p.o. daily
#DM2
Accu-Cheks with SSI, check HgbA1c
Patient on Toujeo U 300 54 units subcu daily, Farxiga 10 mg daily
#Chronic anemia-microcytic
Hgb 9.2 appears baseline
#GERD/Wells's esophagus
Continue Protonix 40 mg twice daily, Pepcid 20 mg at bedtime
#HLD
-Continue Crestor
#Anxiety
-Continue Effexor XR 300 mg daily
#Trigeminal neuralgia
Continue Tegretol 200 mg twice daily
#Chronic urinary incontinence
-Continue Vesicare 10 mg daily
#Insomnia
trazodone 100 mg at bedtime
#SJogrens syndrome
Continue Evoxac
#Obesity due to excess calorie consumption�BMI 36.8 kg
Low-fat 1800 ADA healthy heart diet
DVT prophylaxis
Continue DEPUTY SHERIFF GENERALIST/BAILIFF Eliquis
Full code per patient
[2023-11-14 21:08] LABS: NT-proBNP 1520 pg/ml
[2023-11-14 23:26] LABS: Glucose - Point of Care 197 mg/dl (70-99)
[2023-11-14] MEDS: DESYREL PO (23:26)
[2023-11-14] MEDS: PLAQUENIL 400 MG PO (23:26)
[2023-11-14] MEDS: CLARITIN 10 MG PO (23:26)
[2023-11-14] MEDS: PEPCID 20 MG PO (23:26)
[2023-11-14] MEDS: CRESTOR 10 MG PO (23:26)
[2023-11-15] VITALS (11 sets, daily range): BP systolic 98–148; BP diastolic 52–72; PULSE 83–113; O2SAT 96; BMI 36.5
[2023-11-15 04:48] LABS: % Basophils 0.3 % (0-2); % Immature Granulocytes 0.4 % (0-0.5); % Monocytes 11.3 % (1.7-9.3); Absolute Eosinophils 0.1 10^3/uL (0-0.7); Absolute Lymphocytes 1.4 10^3/uL (1.2-3.4); Absolute Monocytes 1.1 10^3/uL (0.1-0.6); Hematocrit 29.8 % (37.0-47.0); Mean Corp Hgb Conc. 30.2 g/dL (33.0-37.0); Mean Corpuscular Volume 79.5 fL (81.0-99.0); Mean Platelet Volume 9.2 fL (7.4-10.4); Nucleated Red Blood Cells % 0 %; Platelet Count 289 10^3/uL (130-400); Red Blood Cell Count 3.75 10^6/uL (4.20-5.40); Red Cell Dist. Width 17.3 % (11.5-14.5); White Blood Cell Count 9.6 10^3/uL (4.8-10.8)
[2023-11-15 05:12] LABS: Blood Urea Nitrogen 20 mg/dl (7-17); Calcium 7.6 mg/dl (8.4-10.2); Carbon Dioxide 28 mmol/L (22-30); Chloride 101 mmol/L (98-107); Estimated Creatinine Clearance 64 ml/min; Glucose 163 mg/dl (70-99); Potassium 3.2 mmol/L (3.5-5.1); Sodium 138 mmol/L (135-145); eGFR > 60.00
[2023-11-15] MEDS: SYNTHROID 137 MCG PO (06:09)
[2023-11-15] MEDS: TYLENOL 650 MG PO (06:09)
[2023-11-15] MEDS: DETROL LA 4 MG PO (08:11)
[2023-11-15] MEDS: EFFEXOR XR 300 MG PO (08:11)
[2023-11-15] MEDS: FARXIGA 10 MG PO (08:11)
[2023-11-15] MEDS: PROTONIX 40 MG PO ×2 (08:11→20:28)
[2023-11-15] MEDS: ELIQUIS 5 MG PO ×2 (08:12→20:28)
[2023-11-15] MEDS: ASPIR LOW (ENTERIC COATED) 81 MG PO (08:12)
[2023-11-15] MEDS: DELTASONE 5 MG PO (08:12)
[2023-11-15] MEDS: DELTASONE 1 MG PO (08:12)
[2023-11-15] MEDS: LOPRESSOR 100 MG PO ×2 (08:13→20:28)
[2023-11-15] MEDS: DESENEX/MITRAZOL/ZEASORB 1 APPLIC TOPICAL ×2 (08:16→20:29)
[2023-11-15 08:17] LABS: Glucose - Point of Care 179 mg/dl (70-99)
--- NOTE | 2023-11-15 08:18 | CON.CAR ---
Addendum entered and electronically signed by Rojelio Hernandez MD 11/15/23 12:02:
72 yo female with PMH of TAVR 07/12/23 complicated by valve migration into the LVOT resulting in moderate MS, also Medtronic PPM for complete HB (08/09/23), chronic HFpEF admitted with dizziness.
She had increase outpatient lasix due to weight gain. Then reported dizziness and weakness.
Exam with RRR, II/ systolic murmur at RUSB, no edema.
Cr 0.9. Tele shows NSR, PAC's.
Orthostatic vitals signs are positive. She appears volume down. No lasix today, and observe.
Original Note:
Consultation
Consultation Request
Date/Time Consultation Requested: 11/14/232232
Date/Time Consultation Performed: 11/15/23 0823
Requesting Provider: Maribel Fields NP
Performing Provider: Debby METZ for Dr. Hernandez
Reason for Consultation: CHF with concern for overdiuresis
Medical History
-
Chief Complaint: near syncope
History of Present Illness:
72 y/o female with history of severe s/p TAVR 07/12/23 complicated by valve migration into the LVOT resulting in moderate MS, also Medtronic PPM for complete HB (08/09/23), HFpEF, CVA, HTN, obesity, restrictive lung disease, BERNIE on CPAP, lupus on
steroids, AFIB on Eliquis s/p CV 10/08/23, and COVID19 Jul 2023. She is here for evaluation after she was walking to the bathroom yesterday and felt dizzy. She then felt her arms and legs get weak and brought herself to the ground. She also had some
nausea. She has had continued SOB and dizzy spells since TAVR per her report. She takes lasix 60 mg daily, but BID MWF. She also takes BID if weight greater than 214 lbs, which she has been recently. She has not been eating much and has been
sticking to sodium/fluid restriction. She received small bolus of fluid in ER and lasix held. Orthos positive in ER. Potassium low.
Past Medical History
Past Medical History: Arrhythmias, CHF, CVA, HTN, Valvular Disease and Other (as above)
Social History
Tobacco: Non-Smoker
Living: With Family
Family History
Family History: Reviewed & Not Pertinent
Allergies / Home Medications
Allergy/AdvReac Type Severity Reaction Status Date / Time
adhesive Allergy Skin tears Verified 11/14/23 22:30
armodafinil [From Nuvigil] Allergy MAKES PT Verified 11/14/23 22:30
SUICIDAL,
Hiwot
azathioprine sodium Allergy 105 FEVER Verified 11/14/23 22:30
[From Imuran]
gabapentin Allergy hiwot Verified 11/14/23 22:30
Iodinated Contrast Media Allergy Anaphylaxis Verified 11/14/23 22:30
[IV Dye, Iodine Containing
Contrast ]
morphine sulfate Allergy 'HALLUCINAT Verified 11/14/23 22:30
[From MS Contin] IONS'
ondansetron Allergy lost BP Verified 11/14/23 22:30
and pulse
vilazodone HCl [From Viibryd] Allergy 'MANIC' Verified 11/14/23 22:30
Medication Instructions Recorded Confirmed Type
hydroxychloroquine 200 mg tablet 400 mg PO HS Autoimmune Disorder 03/16/15 11/14/23 History
cevimeline 30 mg capsule (Evoxac) 30 mg PO BID DRY MOUTH 02/01/21 11/14/23 History
insulin glargine U-300 conc 300 54 unit SC DAILY Diabetes 05/15/22 11/14/23 History
unit/mL (1.5 mL) subcutaneous pen
(Toujeo SoloStar U-300 Insulin)
mycophenolate mofetil 500 mg 500 mg PO BID Immunosuppressant 05/15/22 11/14/23 History
tablet (CellCept)
pantoprazole 40 mg tablet,delayed 40 mg PO BID Gastrointestinal issue 05/15/22 11/14/23 History
release (Protonix)
rosuvastatin 10 mg tablet (Crestor) 10 mg PO HS High cholesterol 05/15/22 11/14/23 History
solifenacin 10 mg tablet (Vesicare) 10 mg PO DAILY Urinary issue 05/15/22 11/14/23 History
venlafaxine 150 mg 300 mg PO DAILY Mental 05/15/22 11/14/23 History
capsule,extended release 24 hr Health/Anxiety
(Effexor XR)
dapsone 25 mg tablet 50 mg PO DAILY lupus 05/17/22 11/14/23 History
carbamazepine 200 mg tablet 200 mg PO BID trigeminal neuralgia 11/06/22 11/14/23 History
(Tegretol)
fexofenadine 180 mg tablet 180 mg PO HS Allergies 11/06/22 11/14/23 History
levothyroxine 137 mcg tablet 137 mcg PO DAILY Thyroid 12/04/22 11/14/23 History
trazodone 100 mg tablet 100 mg PO HS Sleep 07/12/23 11/14/23 History
dapagliflozin propanediol 10 mg 10 mg PO DAILY Diabetes #30 tabs 07/17/23 11/14/23 Rx
tablet (Farxiga)
famotidine 20 mg tablet 20 mg PO HS #0 tabs 08/10/23 11/14/23 Rx
ergocalciferol (vitamin D2) 1,250 1,250 mcg PO CENTENO Supplement 08/22/23 11/14/23 History
mcg (50,000 unit) capsule
insulin lispro 100 unit/mL 0 sliding scale dose SC AC Diabetes 08/22/23 11/14/23 History
subcutaneous pen (Humalog KwikPen
(U-100) Insulin)
metoprolol tartrate 100 mg tablet 100 mg PO BID Blood Pressure 08/22/23 11/14/23 History
prednisone 5 mg tablet 5 mg PO DAILY Immunosuppressant 08/22/23 11/14/23 History
furosemide 40 mg tablet (Lasix) 60 mg PO SUTUTHSA 10/22/23 11/14/23 History
Lasix 60 mg PO MOWEFR 11/14/23 11/14/23 History
apixaban 5 mg tablet (Eliquis) 5 mg PO BID 11/14/23 11/14/23 History
aspirin 81 mg tablet,delayed 81 mg PO DAILY 11/14/23 11/14/23 History
release
prednisone 1 mg tablet 1 mg PO DAILY 11/14/23 11/14/23 History
Review of Systems
-
History Source: Patient
All other systems: Negative unless noted
Respiratory: Trouble Breathing
Neurological: Dizzy and Weakness
Physical Exam
Vital Signs
Temp Pulse Resp BP Pulse Ox
98.7 F 83 18 123/56 91
11/15/23 07:00 11/15/23 07:00 11/15/23 07:00 11/15/23 07:00 11/15/23 07:00
Lab Results
11/15/23 04:39
11/15/23 04:39
Troponin I 0.028 ng/ml 11/14/23 18:40
Bll-Z-Pjsdydzzetw Pept 1520 pg/ml 11/14/23 18:40
Physical Exam
General: Well Developed and No Apparent Distress
HEENT: Normocephalic and Anicteric
Respiratory: Clear and Non Labored Respirations
Cardiac: Regular Rhythm
Musculoskeletal: No Edema
Skin: Warm and Dry
Neuro: AO x 3
Psych: Calm
Impression / Plan
-
Dizziness, orthostasis:
-can hold lasix today, and consider lower dose on resumption
-follow orthos
-pacemaker interrogation today
-may repeat echo
Hypokalemia:
-replace and monitor
HFpEF: chronic
-does not appear volume overloaded to assessment
-we may need to adjust dry weight (previously 214 lbs)
-follow volume
s/p TAVR:
-c/b functional mitral stenosis from malposition of TAVR- continue BB
-echo as above
CHB:
-stable s/p pacemaker
-interrogation planned
PAF:
-stable in SR
-continue metoprolol and Eliquis
Restrictive lung disease
Data Reviewed
-
EKG: Tracing Personally Visualized and interpreted (SR with 1st dgree AVB and LBBB)
Radiology: Report Reviewed by me (CXR: No radiographic evidence for acute pulmonary edema, pneumonia, or pleural effusion.)
Medical Tests (Nuc Med, Echo etc): Report Reviewed by me (echo 08/10/23: Normal biventricular size and systolic function without regional wall motion abnormality. #29 mm Medtronic Evolut TAVR, that appears to be apically displaced into the LVOT
(approximately 2.2cm). Moderate mitral stenosis )
Labs: Labs Reviewed by me
[2023-11-15] MEDS: LANTUS 0.429999999999999993 UNITS SC (08:20)
[2023-11-15 08:42] LABS: Glycohemoglobin (HgbA1c) 8.1 % (4.0-5.6)
--- NOTE | 2023-11-15 08:46 | W.PN.HOSP.TC ---
Today's Communication/Plan
-
.
Assessment / Plan
Assessment / Plan
Physical Exam
General: Comfortable and Conversant; No Pain, Fever or Chills
HEENT: Normocephalic, Anicteric, Moist mucous membranes, PERRLA, [place] Conjunctivae and No Ptosis
Respiratory: limited, no wheezes.
Cardiac: S1/S2
GI: Soft, Non Tender, Non Distended,
Rectal: No rectal bleeding
Genito-urinary: NO Hallman
Musculoskeletal: No Clubbing, No Cyanosis
Skin: Warm and Dry; No Rash
Neuro: AO x 3, No Motor Deficits, Nonfocal/grossly intact, Cranial Nerves Intact and No Sensory Deficits; No Slurred Speech, Facial Droop or Tremors
Psych: Calm
#Orthostatic hypotension given recent increased diuretic use
�recently�increased Lasix to 60 mg bid for the last 3 days(11/10,11/11,11/12)�versus
Supine 139/65, HR 80
Sitting 121/73, HR 90
Standing 95/60, HR 95
Will do another ortho vitals check today post IVF
-cont metoprolol tartrate 100 mg twice daily with hold parameters
- Appreciate cardiology help
#Hypokalemia secondary to increased diuretic use
K3.2
will give more oral K
#Pacemaker permanent
#A-fib
#Ablation approximately 10/08/2023
-Continue Eliquis 5 mg twice daily
-cont� metoprolol 100 mg bid with hold parameters
#Sjogren's Syndrome / Rheumatoid Arthritis / Lupus
-Continue Evoxac, Dapson, Prednisone, Hydroxychloroquine and Cell Cept
#Hypothyroidism
-Continue levothyroxine 137 mg p.o. daily
#DM2
Accu-Cheks with SSI, check HgbA1c
Patient on Toujeo U 300 54 units subcu daily, Farxiga 10 mg daily
#Chronic anemia-microcytic
Hgb 9.2 appears baseline
#GERD/Wells's esophagus
Continue Protonix 40 mg twice daily, Pepcid 20 mg at bedtime
#HLD
-Continue Crestor
#Anxiety
-Continue Effexor XR 300 mg daily
#Trigeminal neuralgia
Continue Tegretol 200 mg twice daily
#Chronic urinary incontinence
-Continue Vesicare 10 mg daily
#Insomnia
trazodone 100 mg at bedtime
#Obesity due to excess calorie consumption�BMI 36.8 kg
Low-fat 1800 ADA healthy heart diet
DVT prophylaxis
Continue [employer] Eliquis
Full code per patient
�Total time spent to see the patient, examine the patient on the floor, review data and lab results, discuss treatment plan with the patient, nursing staff around 55 minutes
Anticipated Discharge: 24 - 48 hours
Subjective/Interval History
-
Date of Service: November 15, 2023
She denies chest pain
No abd pain
No fevers or headache
Objective Data
-
Labs:
Laboratory Results
11/15/23
04:39
WBC 9.6
Hgb 9.0 L
Hct 29.8 L
Plt Count 289
Sodium 138
Potassium 3.2 L
Chloride 101
Carbon Dioxide 28
BUN 20 H
Creatinine 0.9
Glucose 163 H
Calcium 7.6 L
Vital Signs:
Vital Signs
Temp Pulse Resp BP Pulse Ox
98.7 F 83 18 123/56 91
11/15/23 07:00 11/15/23 08:13 11/15/23 07:00 11/15/23 08:13 11/15/23 07:00
[2023-11-15] MEDS: NOVOLOG FLEXPEN-LOW RESISTANCE 1 UNITS SC ×2 (09:00→12:56)
[2023-11-15] MEDS: TEGRETOL 200 MG PO ×2 (09:01→20:28)
[2023-11-15] MEDS: CELLCEPT 500 MG PO ×2 (09:01→20:28)
[2023-11-15] MEDS: DAPSONE 50 MG PO (09:02)
[2023-11-15] MEDS: KLOR-CON 20 MEQ PO ×2 (09:22→13:46)
--- NOTE | 2023-11-15 09:56 | VNURNOTE ---
Patient is current with [facility] since 07/23 w/SN, will monitor progress and plan at discharge.
--- NOTE | 2023-11-15 11:40 | W.PN.UPDATE ---
Update Note
Progress Note Update
No issues on device interrogation per Medtr[employer] Rep.
[2023-11-15 12:45] LABS: Glucose - Point of Care 192 mg/dl (70-99)
[2023-11-15] MEDS: NON-FORMULARY ITEM 30 MG PO ×2 (12:58→20:29)
--- NOTE | 2023-11-15 16:09 | CM ---
Reviewed chart, met with patient to obtain information for assessment. Patient stated that she lives with her daughter who is a cook at school in a one story home with two steps to enter. Patient stated that her daughter gets home at 4 and she
described herself as independent normally however the past month she has needed some assistance with ADLs, personal care, dressing and bathing. Her daughter does all the lofter, cooks, cleans and does all the laundry. Patient's daughter
drives and can get patient to her appointments and take her shopping.
Patient stated that she uses a rollator to assist with her ambulation. She also has a walker, a cane, a commode, a shower chair and grab bars in the shower.
Patient is current with [facility]. She selects for [facility].
Patient has a prescription plan and uses [facility] pharmacy for all of her medications.
Her PCP is Susana Melendez MD.
Patient stated that she is hopeful that she can return home and resume care with [facility].
Plan: Case management will continue to follow and assist with discharge planning. Patient is hopeful that she can return home when stable.
[2023-11-15 16:19] LABS: Glucose - Point of Care 219 mg/dl (70-99)
[2023-11-15] MEDS: NOVOLOG FLEXPEN-LOW RESISTANCE 2 UNITS SC (17:31)
[2023-11-15 22:11] LABS: Glucose - Point of Care 129 mg/dl (70-99)
[2023-11-15] MEDS: CRESTOR 10 MG PO (22:40)
[2023-11-15] MEDS: PLAQUENIL 400 MG PO (22:40)
[2023-11-15] MEDS: CLARITIN 10 MG PO (22:40)
[2023-11-15] MEDS: PEPCID 20 MG PO (22:40)
[2023-11-15] MEDS: DESYREL 100 MG PO (22:40)
[2023-11-15] MEDS: FLUSH (NSS) 2 FLUSH IV (22:45)
[2023-11-16] VITALS (7 sets, daily range): BP systolic 89–147; BP diastolic 50–97; PULSE 84–108; BMI 36.9
[2023-11-16 05:33] LABS: % Basophils 0.2 % (0-2); % Eosinophils 1.3 % (0-6); % Immature Granulocytes 0.4 % (0-0.5); % Lymphocytes 15.5 % (20.5-51.1); % Monocytes 9.6 % (1.7-9.3); Absolute Eosinophils 0.1 10^3/uL (0-0.7); Absolute Lymphocytes 1.3 10^3/uL (1.2-3.4); Absolute Monocytes 0.8 10^3/uL (0.1-0.6); Absolute Neutrophils 6.2 10^3/uL (1.4-6.5); Hemoglobin 8.8 g/dL (12.0-16.0); Mean Corp Hgb Conc. 28.4 g/dL (33.0-37.0); Mean Corpuscular Hgb 23.4 pg (27.0-31.0); Mean Corpuscular Volume 82.4 fL (81.0-99.0); Mean Platelet Volume 9.4 fL (7.4-10.4); Nucleated Red Blood Cells % 0 %; Platelet Count 266 10^3/uL (130-400); Red Blood Cell Count 3.76 10^6/uL (4.20-5.40); Red Cell Dist. Width 17.5 % (11.5-14.5); White Blood Cell Count 8.5 10^3/uL (4.8-10.8)
[2023-11-16 05:54] LABS: Blood Urea Nitrogen 19 mg/dl (7-17); Calcium 7.8 mg/dl (8.4-10.2); Carbon Dioxide 30 mmol/L (22-30); Chloride 102 mmol/L (98-107); Estimated Creatinine Clearance 72 ml/min; Glucose 171 mg/dl (70-99); Potassium 3.6 mmol/L (3.5-5.1); Sodium 138 mmol/L (135-145); eGFR > 60.00
[2023-11-16] MEDS: SYNTHROID 137 MCG PO (06:16)
[2023-11-16 07:52] LABS: Glucose - Point of Care 170 mg/dl (70-99)
[2023-11-16] MEDS: NOVOLOG FLEXPEN-LOW RESISTANCE 1 UNITS SC ×3 (08:15→16:57)
[2023-11-16] MEDS: LOPRESSOR 100 MG PO ×2 (08:16→21:03)
[2023-11-16] MEDS: PROTONIX 40 MG PO ×2 (08:16→21:01)
[2023-11-16] MEDS: DETROL LA 4 MG PO (08:16)
[2023-11-16] MEDS: TEGRETOL 200 MG PO ×2 (08:16→21:02)
[2023-11-16] MEDS: ASPIR LOW (ENTERIC COATED) 81 MG PO (08:16)
[2023-11-16] MEDS: DAPSONE 50 MG PO (08:17)
[2023-11-16] MEDS: DELTASONE 1 MG PO (08:17)
[2023-11-16] MEDS: DELTASONE 5 MG PO (08:17)
[2023-11-16] MEDS: EFFEXOR XR 300 MG PO (08:17)
[2023-11-16] MEDS: ELIQUIS 5 MG PO ×2 (08:17→21:03)
[2023-11-16] MEDS: FARXIGA 10 MG PO (08:17)
[2023-11-16] MEDS: CELLCEPT 500 MG PO ×2 (08:17→21:04)
[2023-11-16] MEDS: NON-FORMULARY ITEM 30 MG PO (08:18)
[2023-11-16] MEDS: DESENEX/MITRAZOL/ZEASORB 1 APPLIC TOPICAL ×2 (08:18→21:05)
[2023-11-16] MEDS: LANTUS 0.429999999999999993 UNITS SC (08:45)
--- NOTE | 2023-11-16 09:47 | W.PN.HOSP.TC ---
Today's Communication/Plan
-
possible dc today or tomorrow
check orthostatic BP after meds.
Assessment / Plan
Assessment / Plan
Physical Exam
General: Comfortable and Conversant; No Pain, Fever or Chills
HEENT: Normocephalic, Anicteric, Moist mucous membranes, PERRLA, [place] Conjunctivae and No Ptosis
Respiratory: limited, no wheezes.
Cardiac: S1/S2
GI: Soft, Non Tender, Non Distended,
Rectal: No rectal bleeding
Genito-urinary: NO Hallman
Musculoskeletal: No Clubbing, No Cyanosis
Skin: Warm and Dry; No Rash
Neuro: AO x 3, No Motor Deficits, Nonfocal/grossly intact, Cranial Nerves Intact and No Sensory Deficits; No Slurred Speech, Facial Droop or Tremors
Psych: Calm
#Orthostatic hypotension given recent increased diuretic use
�recently�increased Lasix to 60 mg bid for the last 3 days(11/10,11/11,11/12)�versus -. She is off Lasix now.
her BP seems to improve, will repeat orthostatic BP check this morning after meds.
Echo showed LVEF 55%, stage II diastolic dysfunction, moderate MS, mild to moderate MR, mild TR.m Estimated pulmonary arterial pressure 47mHg
-cont metoprolol tartrate 100 mg twice daily with hold parameters
- Appreciate cardiology help
#Hypokalemia
K3.6.
#Pacemaker permanent
No issues on device interrogation.
#A-fib
#Ablation approximately 10/08/2023
-Continue Eliquis 5 mg twice daily
-cont� metoprolol 100 mg bid with hold parameters
#Sjogren's Syndrome / Rheumatoid Arthritis / Lupus
-Continue Evoxac, Dapson, Prednisone, Hydroxychloroquine and Cell Cept
#Hypothyroidism
-Continue levothyroxine 137 mg p.o. daily
#DM2
Accu-Cheks with SSI, check HgbA1c
Patient on Toujeo U 300 54 units subcu daily, Farxiga 10 mg daily
#Chronic anemia-microcytic
Hgb 9.2 appears baseline
#GERD/Wells's esophagus
Continue Protonix 40 mg twice daily, Pepcid 20 mg at bedtime
#HLD
-Continue Crestor
#Anxiety
-Continue Effexor XR 300 mg daily
#Trigeminal neuralgia
Continue Tegretol 200 mg twice daily
#Chronic urinary incontinence
-Continue Vesicare 10 mg daily
#Insomnia
trazodone 100 mg at bedtime
#Obesity due to excess calorie consumption�BMI 36.8 kg
Low-fat 1800 ADA healthy heart diet
DVT prophylaxis
Continue PHYS[employer] TRA[employer]ER Eliquis
Full code per patient
�Total time spent to see the patient, examine the patient on the floor, review data and lab results, discuss treatment plan with the patient, daughter, nursing staff around 55 minutes
Anticipated Discharge: Within 24 hours
Subjective/Interval History
-
Date of Service: November 16, 2023
no chest pain
no abd pain
no sob
Objective Data
-
Labs:
Laboratory Results
11/16/23
05:14
WBC 8.5
Hgb 8.8 L
Hct 31.0 L
Plt Count 266
Sodium 138
Potassium 3.6
Chloride 102
Carbon Dioxide 30
BUN 19 H
Creatinine 0.8
Glucose 171 H
Calcium 7.8 L
Vital Signs:
Vital Signs
Temp Pulse Resp BP Pulse Ox
97.8 F 84 17 104/64 95
11/16/23 07:00 11/16/23 08:16 11/16/23 07:00 11/16/23 07:00 11/16/23 07:00
I&O
11/15/23 11/16/23 11/17/23
06:59 06:59 06:59
Intake Total 940 / 940
Balance 940 / 940
--- NOTE | 2023-11-16 10:15 | W.PN.CD ---
Today's Communication / Plan
-
resume lasix 60mg daily today, then next week will go back to 60mg daily, with bid dosing //
she will weigh herself today when she gets home, and use this as dry weight
if tolerates lasix this AM, she will be stable for discharge from cardiac perspective this afternoon
detailed voicemail left for daughter
we will arrange for outpatient follow up with us
Impression / Plan
-
Dizziness, orthostasis:
-echo stable, device check stable
-likely in setting of extra lasix doses at home
-orthostatics have normalized
HFpEF: chronic
-resume lasix 60mg daily today, then next week will go back to 60mg daily, with bid dosing /W/
-she will weigh herself today when she gets home, and use this as dry weight
s/p TAVR:
-c/b functional mitral stenosis from malposition of TAVR- continue BB
-echo stable
CHB:
-stable s/p pacemaker
PAF:
-stable in SR
-continue metoprolol and Eliquis
Restrictive lung disease
Physical Exam
Vital Signs/Labs
Vital Signs
Temp Pulse Resp BP Pulse Ox
97.8 F 84 17 104/64 95
11/16/23 07:00 11/16/23 08:16 11/16/23 07:00 11/16/23 07:00 11/16/23 07:00
11/15/23 11/16/23 11/17/23
06:59 06:59 06:59
Actual Weight 99.478 kg 100.471 kg
11/16/23 05:14
11/16/23 05:14
11/14/23
18:40
Asi-T-Nmyhqhioipc Pept 1520
LAB Results
11/14/23
18:40
Troponin I 0.028
Physical Exam
Constitutional: No acute distress and Comfortable
EENT: Moist mucous membranes
Cardiovascular: Rhythm & rate is regular, Pedal edema is absent, JVD pressure is normal and Systolic murmur present
Respiratory: Respiratory effort normal and Lungs clear to auscul.
GI: Soft and Distention absent
Neuro/Psych: AO x 3
Data Reviewed
-
Date of Service: November 16, 2023
EKG: Other (Tele: NSR, PAC's)
Labs: Labs Reviewed by me
[2023-11-16] MEDS: LASIX 60 MG PO (11:44)
[2023-11-16 12:28] LABS: Glucose - Point of Care 182 mg/dl (70-99)
--- NOTE | 2023-11-16 16:16 | VNURNOTE ---
[facility] resumption of care completed in [facility] after review of chart and discussion with patient. Patient confirmed having [facility] contact number.
[2023-11-16 16:58] LABS: Glucose - Point of Care 159 mg/dl (70-99)
[2023-11-16] MEDS: CLARITIN 10 MG PO (21:01)
[2023-11-16] MEDS: DESYREL 100 MG PO (21:02)
[2023-11-16] MEDS: PEPCID 20 MG PO (21:02)
[2023-11-16] MEDS: CRESTOR 10 MG PO (21:03)
[2023-11-16] MEDS: PLAQUENIL 400 MG PO (21:04)
[2023-11-16] MEDS: NON-FORMULARY ITEM 1 MG PO (21:05)
[2023-11-16 21:40] LABS: Glucose - Point of Care 174 mg/dl (70-99)
[2023-11-17 03:15] VITALS: BP 108/55
[2023-11-17 05:18] LABS: % Basophils 0.2 % (0-2); % Immature Granulocytes 0.4 % (0-0.5); % Lymphocytes 20.9 % (20.5-51.1); % Monocytes 10.4 % (1.7-9.3); % Neutrophils 66.1 % (42.2-75.2); Absolute Eosinophils 0.2 10^3/uL (0-0.7); Absolute Lymphocytes 1.7 10^3/uL (1.2-3.4); Absolute Monocytes 0.9 10^3/uL (0.1-0.6); Absolute Neutrophils 5.4 10^3/uL (1.4-6.5); Hematocrit 28.9 % (37.0-47.0); Hemoglobin 8.8 g/dL (12.0-16.0); Mean Corp Hgb Conc. 30.4 g/dL (33.0-37.0); Mean Corpuscular Hgb 24.5 pg (27.0-31.0); Mean Corpuscular Volume 80.5 fL (81.0-99.0); Mean Platelet Volume 9.5 fL (7.4-10.4); Nucleated Red Blood Cells % 0 %; Platelet Count 272 10^3/uL (130-400); Red Blood Cell Count 3.59 10^6/uL (4.20-5.40); Red Cell Dist. Width 17.3 % (11.5-14.5); White Blood Cell Count 8.2 10^3/uL (4.8-10.8)
[2023-11-17 05:43] LABS: Blood Urea Nitrogen 19 mg/dl (7-17); Calcium 7.7 mg/dl (8.4-10.2); Carbon Dioxide 29 mmol/L (22-30); Chloride 101 mmol/L (98-107); Estimated Creatinine Clearance 72 ml/min; Glucose 79 mg/dl (70-99); Potassium 3.4 mmol/L (3.5-5.1); Sodium 137 mmol/L (135-145); eGFR > 60.00
[2023-11-17 06:00] VITALS: BMI 36.9
[2023-11-17] MEDS: SYNTHROID 137 MCG PO (07:30)
[2023-11-17] MEDS: LASIX 60 MG PO (07:30)
[2023-11-17] MEDS: PROTONIX 40 MG PO (07:31)
[2023-11-17] MEDS: NON-FORMULARY ITEM 30 MG PO (07:31)
[2023-11-17] MEDS: DETROL LA 4 MG PO (07:31)
[2023-11-17] MEDS: FARXIGA 10 MG PO (07:31)
[2023-11-17] MEDS: DAPSONE 50 MG PO (07:31)
[2023-11-17] MEDS: LOPRESSOR 100 MG PO (07:31)
[2023-11-17] MEDS: EFFEXOR XR 300 MG PO (07:31)
[2023-11-17] MEDS: DELTASONE 1 MG PO (07:31)
[2023-11-17] MEDS: TEGRETOL 200 MG PO (07:31)
[2023-11-17] MEDS: ELIQUIS 5 MG PO (07:31)
[2023-11-17] MEDS: ASPIR LOW (ENTERIC COATED) 81 MG PO (07:31)
[2023-11-17] MEDS: DELTASONE 5 MG PO (07:32)
[2023-11-17] MEDS: CELLCEPT 500 MG PO (07:32)
[2023-11-17] MEDS: DESENEX/MITRAZOL/ZEASORB 1 APPLIC TOPICAL (07:33)
[2023-11-17 08:10] LABS: Glucose - Point of Care 90 mg/dl (70-99)
[2023-11-17 08:12] VITALS: BP 108/57
[2023-11-17] MEDS: NOVOLOG FLEXPEN-LOW RESISTANCE SC (08:16)
[2023-11-17] MEDS: LANTUS 0.429999999999999993 UNITS SC (09:01)
--- NOTE | 2023-11-17 09:25 | W.DCSUMMARY ---
Discharge Summary
Discharge Data
Date of Admission: 11/14/23
Date of Discharge: 11/17/23
-
Pending Results: No
Hospital Course
72 years old female came to the hospital with dizziness. Patient came from home. She was found to have orthostatic hypotension. Her diuretic treatment was increased recently. Echocardiogram showed left ventricular ejection fraction 55% with
stage II diastolic dysfunction, moderate mitral stenosis, mild to moderate mitral regurgitation with mild tricuspid regurgitation. Estimated pulmonary artery pressure of 47 mmHg. Patient was evaluated by property handler. She was given mild
intravenous fluid. Lasix was held. Her orthostatic blood pressure improved. She was advised to take 60 mg once a day with 60 mg twice a day on Sunday, Sunday and Sunday. She was also instructed to monitor her weight. She remained
hemodynamically stable. She was given potassium for hypokalemia. No no chest pain. No hypoxia. Patient reported chronic exertional shortness of breath with no worsening. Patient was discharged in a stable condition.
Physical Exam
General: Comfortable and Conversant; No Pain, Fever or Chills
HEENT: Normocephalic, Anicteric, Moist mucous membranes, PERRLA, [place] Conjunctivae and No Ptosis
Respiratory: limited, no wheezes.
Cardiac: S1/S2
GI: Soft, Non Tender, Non Distended,
Rectal: No rectal bleeding
Genito-urinary: NO Hallman
Musculoskeletal: No Clubbing, No Cyanosis
Skin: Warm and Dry; No Rash
Neuro: AO x 3, No Motor Deficits, Nonfocal/grossly intact, Cranial Nerves Intact and No Sensory Deficits; No Slurred Speech, Facial Droop or Tremors
Psych: Calm
Total discharge time spent to see the patient, examine the patient on the floor, review data and lab results, discuss discharge plan with the patient, nursing staff around 65 minutes
Discharge Plan
-
Patient Disposition: Home with Home Care
Discharge Diagnosis/Procedures: Dizziness with orthostatic hypotension.
Chronic heart failure with a preserved ejection fraction
Aortic stenosis status post repair
Complete heart block status post pacemaker
Paroxysmal atrial fibrillation.
Hypokalemia, resolved
Diet: Low Sodium
Referrals:
Liz Doe NP [Specified Professional Personl] - 12/04/23 3:20 pm
Susana Melendez MD [Family Provider] - in one to two weeks
Prescriptions:
Continued
hydroxychloroquine 200 MG tablet
400 mg PO HS
cevimeline [Evoxac] 30 MG capsule
30 mg PO BID
venlafaxine [Effexor XR] 150 mg Capsule,Extended Release 24hr
300 mg PO DAILY
mycophenolate mofetil [CellCept] 500 mg Tablet
500 mg PO BID
pantoprazole [Protonix] 40 mg Tablet,Delayed Release (Dr/Ec)
40 mg PO BID
rosuvastatin [Crestor] 10 mg Tablet
10 mg PO HS
solifenacin [Vesicare] 10 mg Tablet
10 mg PO DAILY
insulin glargine U-300 conc [Toujeo SoloStar U-300 Insulin] 300 unit/mL (1.5 mL) Insulin Pen
54 unit SC DAILY
dapsone 25 mg tablet
50 mg PO DAILY
fexofenadine 180 mg Tablet
180 mg PO HS
carbamazepine [Tegretol] 200 mg tablet
200 mg PO BID
levothyroxine 137 mcg Tablet
137 mcg PO DAILY AT 0700
furosemide [Lasix] 40 mg Tablet
60 mg PO DAILY
trazodone 100 mg Tablet
100 mg PO HS
dapagliflozin propanediol [Farxiga] 10 mg tablet
10 mg PO DAILY Qty: 30 3RF
famotidine 20 mg Tablet
20 mg PO HS Qty: 0 0RF
metoprolol tartrate 100 mg Tablet
100 mg PO BID
prednisone 5 mg Tablet
5 mg PO DAILY
Rx Instructions:
08/22/2023, take with one 1 mg tablet for a total of 6 mg daily.
ergocalciferol (vitamin D2) 1,250 mcg (50,000 unit) Capsule
1,250 mcg PO CENTENO
insulin lispro [Humalog KwikPen Insulin] 100 unit/mL Insulin Pen
0 sliding scale dose SC AC
Rx Instructions:
08/22/2023, if BS 90-150 = 0 units; 151-200 = 3 units; 201-250 = 6 units; 251-300 = 9 units; 301-350 = 12 units; >350 = 15 units.
aspirin 81 mg Tablet,Delayed Release (Dr/Ec)
81 mg PO DAILY
prednisone 1 mg Tablet
1 mg PO DAILY
Rx Instructions:
taken w/ 5mg = 6mg
Eliquis 5 mg tablet
5 mg PO BID
furosemide 40 mg Tablet
60 mg PO BID
Patient Comments:
pt toook bid for the past 3 days , 11/11, 11/12
Rx Instructions:
if has excess fluid retention
Discharge Orders:
Discharge Patient (As Directed); Ordered 11/17/23
Ordered By: Taisha Mcgarry
== END 2023-11-17 11:03 | disposition home health service (06) | DRG 312 ==
LOC: 3 WEST ACU 22:04
PROVIDERS: Clinical Nurse Specialist Family Health; Emergency Medicine; ADMITTING PHYSICIAN Hospitalist; ATTENDING PHYSICIAN Internal Medicine; CONSULT PHYSICIAN Internal Medicine Cardiovascular Disease; EMERGENCY PHYSICIAN Emergency Medicine; FAMILY PHYSICIAN Student in an Organized Health Care Education/Training Program
DX: I95.1 Orthostatic hypotension (principal); I50.32 Chronic diastolic (congestive) heart failure; I11.0 Hypertensive heart disease with heart failure; I48.0 Paroxysmal atrial fibrillation; E87.6 Hypokalemia; I05.2 Rheumatic mitral stenosis with insufficiency; Z95.2 Presence of prosthetic heart valve; Z95.0 Presence of cardiac pacemaker
CPT/HCPCS: 71046; 80048; 80053; 82962; 83036; 83880; 84484; 85025; 87070; 93005; 93306; 96360; 97116; 97163; 97167; 99285

== ENCOUNTER 2023-11-19 10:23 | Outpatient (RCR) | payer MEDICARE, OTHER, SELFPAY ==
[2023-11-19] VITALS (9 sets, daily range): BP systolic 108–134; BP diastolic 48–74
[2023-11-19] MEDS: BENADRYL 25 MG PO (11:41)
[2023-11-19] MEDS: GAMMAGARD 200 IV ×2 (11:41→13:48)
[2023-11-19] MEDS: TYLENOL 650 MG PO (11:41)
[2023-11-19 11:55] LABS: IgG 569 mg/dl (700-1600)
== END 2023-11-20 09:09 | disposition home or self-care (01) ==
LOC: OID 10:23
PROVIDERS: ATTENDING PHYSICIAN Allergy & Immunology; FAMILY PHYSICIAN Student in an Organized Health Care Education/Training Program
DX: D80.1 Nonfamilial hypogammaglobulinemia (principal); I50.32 Chronic diastolic (congestive) heart failure; I35.0 Nonrheumatic aortic (valve) stenosis; I48.0 Paroxysmal atrial fibrillation; Z95.2 Presence of prosthetic heart valve; M32.9 Systemic lupus erythematosus, unspecified; M06.9 Rheumatoid arthritis, unspecified; M35.00 Sjogren syndrome, unspecified; Z79.01 Long term (current) use of anticoagulants
CPT/HCPCS: 82784; 96365; 96366; J1569

== ENCOUNTER 2023-12-17 10:16 | Outpatient (RCR) | payer MEDICARE, OTHER, SELFPAY ==
[2023-12-17] VITALS (9 sets, daily range): BP systolic 118–142; BP diastolic 56–69
[2023-12-17] MEDS: BENADRYL 25 MG PO (11:08)
[2023-12-17] MEDS: TYLENOL 650 MG PO (11:08)
[2023-12-17] MEDS: GAMMAGARD 200 IV ×2 (11:09→13:13)
[2023-12-17 17:01] LABS: IgG 647 mg/dl (700-1600)
== END 2023-12-19 10:30 | disposition home or self-care (01) ==
LOC: OID 10:16
PROVIDERS: ATTENDING PHYSICIAN Allergy & Immunology; FAMILY PHYSICIAN Student in an Organized Health Care Education/Training Program
DX: D80.9 Immunodeficiency with predominantly antibody defects, unspecified (principal); I50.32 Chronic diastolic (congestive) heart failure; I48.0 Paroxysmal atrial fibrillation; Z95.2 Presence of prosthetic heart valve; D80.8 Other immunodeficiencies with predominantly antibody defects; M32.9 Systemic lupus erythematosus, unspecified; M06.9 Rheumatoid arthritis, unspecified; M35.00 Sjogren syndrome, unspecified
CPT/HCPCS: 82784; 96365; 96366; J1569

== ENCOUNTER 2024-01-14 10:27 | Outpatient (RCR) | payer MEDICARE, OTHER, SELFPAY ==
[2024-01-14] VITALS (8 sets, daily range): BP systolic 109–149; BP diastolic 51–73
[2024-01-14] MEDS: BENADRYL 25 MG PO (11:05)
[2024-01-14] MEDS: TYLENOL 650 MG PO (11:06)
[2024-01-14] MEDS: GAMMAGARD 200 IV ×2 (11:08→13:26)
[2024-01-14 12:52] LABS: IgG 715 mg/dl (700-1600)
== END 2024-01-14 15:46 | disposition home or self-care (01) ==
LOC: OID 10:27
PROVIDERS: ATTENDING PHYSICIAN Allergy & Immunology; FAMILY PHYSICIAN Student in an Organized Health Care Education/Training Program
DX: D80.9 Immunodeficiency with predominantly antibody defects, unspecified (principal); I50.32 Chronic diastolic (congestive) heart failure; I48.0 Paroxysmal atrial fibrillation; Z95.2 Presence of prosthetic heart valve; D80.8 Other immunodeficiencies with predominantly antibody defects; M32.9 Systemic lupus erythematosus, unspecified; M06.9 Rheumatoid arthritis, unspecified; M35.00 Sjogren syndrome, unspecified
CPT/HCPCS: 82784; 96365; 96366; J1569

== ENCOUNTER → 2024-01-28 15:24 | Outpatient (REF) | payer MEDICARE, OTHER, SELFPAY ==
[2024-01-28 16:19] LABS: % Basophils 0.3 % (0-2); % Eosinophils 0.5 % (0-6); % Immature Granulocytes 0.5 % (0-0.5); % Lymphocytes 8.7 % (20.5-51.1); Absolute Lymphocytes 0.6 10^3/uL (1.2-3.4); Absolute Monocytes 0.5 10^3/uL (0.1-0.6); Absolute Neutrophils 6.1 10^3/uL (1.4-6.5); Hematocrit 32.6 % (37.0-47.0); Hemoglobin 9.8 g/dL (12.0-16.0); Mean Corp Hgb Conc. 30.1 g/dL (33.0-37.0); Mean Corpuscular Hgb 24.1 pg (27.0-31.0); Mean Corpuscular Volume 80.1 fL (81.0-99.0); Mean Platelet Volume 9.5 fL (7.4-10.4); Nucleated Red Blood Cells % 0 %; Platelet Count 323 10^3/uL (130-400); Red Blood Cell Count 4.07 10^6/uL (4.20-5.40); Red Cell Dist. Width 15.8 % (11.5-14.5); White Blood Cell Count 7.3 10^3/uL (4.8-10.8)
[2024-01-28 16:43] LABS: Albumin 3.9 g/dl (3.5-5.0); Blood Urea Nitrogen 23 mg/dl (7-17); Calcium 9.5 mg/dl (8.4-10.2); Carbon Dioxide 30 mmol/L (22-30); Chloride 99 mmol/L (98-107); Glucose 144 mg/dl (70-99); Phosphorus 4.3 mg/dl (2.5-4.5); Potassium 4.2 mmol/L (3.5-5.1); Sodium 137 mmol/L (135-145); eGFR 58.75
[2024-01-29 11:10] LABS: Intact PTH 31.1 pg/ml (13.6-85.8)
[2024-01-30 10:30] LABS: Iron 50 ug/dl (37-170)
[2024-01-30 10:40] LABS: Percent Saturation 12 % (20-50); Total Iron Binding Capacity 396 ug/dl (265-497)
[2024-01-30 12:07] LABS: Ferritin 10.8 ng/ml (11.1-264.0)
== END ==
LOC: REG 15:24
PROVIDERS: ATTENDING PHYSICIAN Student in an Organized Health Care Education/Training Program
DX: D64.9 Anemia, unspecified (principal)
CPT/HCPCS: 36415; 80069; 82728; 83540; 83550; 83970; 85025

== ENCOUNTER 2024-02-15 10:37 | Outpatient (RCR) | payer MEDICARE, OTHER, SELFPAY ==
[2024-02-11] VITALS (9 sets, daily range): BP systolic 101–135; BP diastolic 49–66
[2024-02-11] MEDS: CATHFLO/ACTIVASE 2 MG IV (11:24)
[2024-02-11] MEDS: BENADRYL 25 MG PO (12:10)
[2024-02-11] MEDS: GAMMAGARD 200 IV ×2 (12:11→14:14)
[2024-02-11] MEDS: TYLENOL 650 MG PO (12:11)
[2024-02-11 12:12] LABS: % Basophils 0.2 % (0-2); % Eosinophils 1.8 % (0-6); % Immature Granulocytes 0.4 % (0-0.5); % Lymphocytes 4.1 % (20.5-51.1); % Monocytes 6.1 % (1.7-9.3); % Neutrophils 87.4 % (42.2-75.2); Absolute Eosinophils 0.2 10^3/uL (0-0.7); Absolute Lymphocytes 0.3 10^3/uL (1.2-3.4); Absolute Monocytes 0.5 10^3/uL (0.1-0.6); Absolute Neutrophils 7.3 10^3/uL (1.4-6.5); Hematocrit 29.1 % (37.0-47.0); Hemoglobin 8.9 g/dL (12.0-16.0); Mean Corp Hgb Conc. 30.6 g/dL (33.0-37.0); Mean Corpuscular Hgb 24.5 pg (27.0-31.0); Mean Corpuscular Volume 79.9 fL (81.0-99.0); Mean Platelet Volume 9.5 fL (7.4-10.4); Nucleated Red Blood Cells % 0 %; Platelet Count 314 10^3/uL (130-400); Red Blood Cell Count 3.64 10^6/uL (4.20-5.40); Red Cell Dist. Width 16.2 % (11.5-14.5); White Blood Cell Count 8.4 10^3/uL (4.8-10.8)
[2024-02-11 12:36] LABS: ALT (SGPT) 22 U/L (0-35); AST (SGOT) 26 U/L (14-36); Albumin 3.5 g/dl (3.5-5.0); Alkaline Phosphatase 181 U/L (38-126); Blood Urea Nitrogen 22 mg/dl (7-17); Calcium 8.4 mg/dl (8.4-10.2); Carbon Dioxide 28 mmol/L (22-30); Chloride 100 mmol/L (98-107); Glucose 206 mg/dl (70-99); Potassium 3.7 mmol/L (3.5-5.1); Sodium 138 mmol/L (135-145); Total Bilirubin 0.3 mg/dl (0.2-1.3); Total Protein 6.1 g/dl (6.3-8.2); eGFR 58.75
[2024-02-11 13:42] LABS: IgG 707 mg/dl (700-1600)
--- NOTE | 2024-02-11 15:50 | PTCARENOTE ---
1124-Sub-q port accessed per protocol no blood return noted, port flushes easily. Activase instilled per protocol.
1212- Excellent blood return obtained. IVIG infused without incident.
[2024-02-15] MEDS: INJECTAFER 265 MG IV (11:16)
[2024-02-15 11:28] VITALS: BP 145/68
[2024-02-15 12:27] VITALS: BP 112/59
== END 2024-02-18 11:00 | disposition home or self-care (01) ==
LOC: OID 10:37
PROVIDERS: ATTENDING PHYSICIAN Allergy & Immunology; FAMILY PHYSICIAN Student in an Organized Health Care Education/Training Program
DX: D80.9 Immunodeficiency with predominantly antibody defects, unspecified (principal); I50.32 Chronic diastolic (congestive) heart failure; I48.0 Paroxysmal atrial fibrillation; Z95.2 Presence of prosthetic heart valve; D80.8 Other immunodeficiencies with predominantly antibody defects; M32.9 Systemic lupus erythematosus, unspecified; M06.9 Rheumatoid arthritis, unspecified; M35.00 Sjogren syndrome, unspecified
CPT/HCPCS: 36415; 80053; 82784; 85025; 96365; 96366; 96375; J1439; J1569; J2997

== ENCOUNTER 2024-03-10 09:50 | Outpatient (RCR) | payer MEDICARE, OTHER, SELFPAY ==
[2024-02-29] MEDS: INJECTAFER 265 MG IV (14:16)
[2024-02-29 14:27] VITALS: BP 137/69
[2024-02-29 15:00] VITALS: BP 110/57
[2024-03-10] VITALS (9 sets, daily range): BP systolic 104–137; BP diastolic 52–71
[2024-03-10] MEDS: BENADRYL 25 MG PO (10:25)
[2024-03-10] MEDS: GAMMAGARD 200 IV ×2 (10:26→12:33)
[2024-03-10] MEDS: TYLENOL 650 MG PO (10:26)
[2024-03-10 11:07] LABS: IgG 720 mg/dl (700-1600)
[2024-03-10 12:00] LABS: ALT (SGPT) 29 U/L (0-35); AST (SGOT) 35 U/L (14-36); Albumin 3.7 g/dl (3.5-5.0); Alkaline Phosphatase 214 U/L (38-126); Blood Urea Nitrogen 23 mg/dl (7-17); Calcium 8.5 mg/dl (8.4-10.2); Carbon Dioxide 28 mmol/L (22-30); Chloride 100 mmol/L (98-107); Glucose 248 mg/dl (70-99); Potassium 3.8 mmol/L (3.5-5.1); Sodium 137 mmol/L (135-145); Total Bilirubin 0.5 mg/dl (0.2-1.3); Total Protein 5.9 g/dl (6.3-8.2); eGFR > 60.00
[2024-03-10 12:40] LABS: % Basophils 0.3 % (0-2); % Eosinophils 2.1 % (0-6); % Immature Granulocytes 0.4 % (0-0.5); % Lymphocytes 5.4 % (20.5-51.1); % Monocytes 7.9 % (1.7-9.3); % Neutrophils 83.9 % (42.2-75.2); Absolute Eosinophils 0.2 10^3/uL (0-0.7); Absolute Lymphocytes 0.5 10^3/uL (1.2-3.4); Absolute Monocytes 0.7 10^3/uL (0.1-0.6); Absolute Neutrophils 7.9 10^3/uL (1.4-6.5); Hematocrit 36.4 % (37.0-47.0); Mean Corp Hgb Conc. 30.2 g/dL (33.0-37.0); Mean Corpuscular Hgb 27.4 pg (27.0-31.0); Mean Corpuscular Volume 90.8 fL (81.0-99.0); Mean Platelet Volume 10.1 fL (7.4-10.4); Nucleated Red Blood Cells % 0 %; Platelet Count 245 10^3/uL (130-400); Red Blood Cell Count 4.01 10^6/uL (4.20-5.40); Red Cell Dist. Width 20.7 % (11.5-14.5); White Blood Cell Count 9.4 10^3/uL (4.8-10.8)
== END 2024-03-11 08:25 | disposition home or self-care (01) ==
LOC: OID 09:50
PROVIDERS: ATTENDING PHYSICIAN Allergy & Immunology; FAMILY PHYSICIAN Student in an Organized Health Care Education/Training Program
DX: D80.9 Immunodeficiency with predominantly antibody defects, unspecified (principal); I48.0 Paroxysmal atrial fibrillation; I50.32 Chronic diastolic (congestive) heart failure; Z95.2 Presence of prosthetic heart valve; D80.8 Other immunodeficiencies with predominantly antibody defects; Z79.01 Long term (current) use of anticoagulants; M32.9 Systemic lupus erythematosus, unspecified; M06.9 Rheumatoid arthritis, unspecified; M35.00 Sjogren syndrome, unspecified
CPT/HCPCS: 80053; 82784; 85025; 96365; 96366; J1439; J1569

== ENCOUNTER → 2024-03-21 13:18 | Outpatient (REF) | payer MEDICARE, OTHER, SELFPAY | LOC: MRI 13:18 | PROVIDERS: ATTENDING PHYSICIAN Psychiatry & Neurology Neurology; FAMILY PHYSICIAN Student in an Organized Health Care Education/Training Program | DX: M54.12 Radiculopathy, cervical region (principal); M54.16 Radiculopathy, lumbar region | CPT/HCPCS: 72141; 72148 ==

== ENCOUNTER 2024-04-07 09:39 | Outpatient (RCR) | payer MEDICARE, OTHER, SELFPAY ==
[2024-04-07] VITALS (11 sets, daily range): BP systolic 99–134; BP diastolic 51–94
[2024-04-07] MEDS: BENADRYL 25 MG PO (10:19)
[2024-04-07] MEDS: TYLENOL 650 MG PO (10:19)
[2024-04-07] MEDS: GAMMAGARD 200 IV ×2 (10:35→13:17)
[2024-04-07 10:58] LABS: % Basophils 0.2 % (0-2); % Eosinophils 1.8 % (0-6); % Immature Granulocytes 0.3 % (0-0.5); % Lymphocytes 6.1 % (20.5-51.1); % Monocytes 7.7 % (1.7-9.3); % Neutrophils 83.9 % (42.2-75.2); Absolute Eosinophils 0.2 10^3/uL (0-0.7); Absolute Lymphocytes 0.6 10^3/uL (1.2-3.4); Absolute Monocytes 0.7 10^3/uL (0.1-0.6); Absolute Neutrophils 7.8 10^3/uL (1.4-6.5); Hematocrit 36.7 % (37.0-47.0); Hemoglobin 11.9 g/dL (12.0-16.0); Mean Corp Hgb Conc. 32.4 g/dL (33.0-37.0); Mean Corpuscular Hgb 29.1 pg (27.0-31.0); Mean Corpuscular Volume 89.7 fL (81.0-99.0); Mean Platelet Volume 9.7 fL (7.4-10.4); Nucleated Red Blood Cells % 0 %; Platelet Count 229 10^3/uL (130-400); Red Blood Cell Count 4.09 10^6/uL (4.20-5.40); Red Cell Dist. Width 16.3 % (11.5-14.5); White Blood Cell Count 9.3 10^3/uL (4.8-10.8)
[2024-04-07 11:16] LABS: ALT (SGPT) 34 U/L (0-35); AST (SGOT) 39 U/L (14-36); Albumin 3.6 g/dl (3.5-5.0); Alkaline Phosphatase 251 U/L (38-126); Blood Urea Nitrogen 19 mg/dl (7-17); Calcium 8.8 mg/dl (8.4-10.2); Carbon Dioxide 29 mmol/L (22-30); Chloride 103 mmol/L (98-107); Glucose 214 mg/dl (70-99); Potassium 3.8 mmol/L (3.5-5.1); Sodium 138 mmol/L (135-145); Total Protein 5.9 g/dl (6.3-8.2); eGFR > 60.00
[2024-04-07 11:23] LABS: IgG 673 mg/dl (700-1600)
[2024-04-07 12:06] LABS: Total Bilirubin 0.4 mg/dl (0.2-1.3)
== END 2024-04-08 10:56 | disposition home or self-care (01) ==
LOC: OID 09:39
PROVIDERS: ATTENDING PHYSICIAN Allergy & Immunology; FAMILY PHYSICIAN Student in an Organized Health Care Education/Training Program
DX: D80.9 Immunodeficiency with predominantly antibody defects, unspecified (principal); I50.32 Chronic diastolic (congestive) heart failure; I48.0 Paroxysmal atrial fibrillation; Z95.2 Presence of prosthetic heart valve; D80.8 Other immunodeficiencies with predominantly antibody defects; M32.9 Systemic lupus erythematosus, unspecified; M06.9 Rheumatoid arthritis, unspecified; M35.00 Sjogren syndrome, unspecified
CPT/HCPCS: 80053; 82784; 85025; 96365; 96366; 96374; J1569

== ENCOUNTER 2024-05-05 09:28 | Outpatient (RCR) | payer MEDICARE, OTHER, SELFPAY ==
[2024-05-05] VITALS (9 sets, daily range): BP systolic 106–146; BP diastolic 40–63; BMI 35.0
[2024-05-05] MEDS: TYLENOL 650 MG PO (10:25)
[2024-05-05] MEDS: GAMMAGARD 200 IV ×2 (10:26→12:31)
[2024-05-05] MEDS: BENADRYL 25 MG PO (10:26)
[2024-05-05 12:14] LABS: IgG 620 mg/dl (700-1600)
== END 2024-05-06 10:00 | disposition home or self-care (01) ==
LOC: OID 09:28
PROVIDERS: ATTENDING PHYSICIAN Allergy & Immunology; FAMILY PHYSICIAN Student in an Organized Health Care Education/Training Program
DX: D80.9 Immunodeficiency with predominantly antibody defects, unspecified (principal); I50.32 Chronic diastolic (congestive) heart failure; I48.0 Paroxysmal atrial fibrillation; Z95.2 Presence of prosthetic heart valve; D80.8 Other immunodeficiencies with predominantly antibody defects; M32.9 Systemic lupus erythematosus, unspecified; M06.9 Rheumatoid arthritis, unspecified; M35.00 Sjogren syndrome, unspecified
CPT/HCPCS: 36591; 82784; 96365; 96366; J1569

== ENCOUNTER 2024-05-25 05:56 | Inpatient (IN) | payer MEDICARE, OTHER, SELFPAY ==
[2024-05-25] VITALS (23 sets, daily range): BP systolic 88–125; BP diastolic 42–89; BMI 35.7; BMI 35.2
--- NOTE | 2024-05-25 02:34 | ED.GENMED ---
History of Present Illness
<Pastor Wright MD, Resident - Last Filed: 05/25/24 04:20>
General
Chief Complaint: Fever
Source: patient and family (daughter)
Time Seen by Provider: 05/25/24 02:21
Travel History
Have you traveled to any high risk areas for coronavirus over the past 14 days?: No
Have you had any contact with someone who has COVID-19?: No
Do you have any symptoms of coronavirus? Fever > 100 degrees, chills, cough, shortness of breath, sore throat, loss of taste or smell, muscle aches, or headache?: No
History of Present Illness
History of Present Illness:
Debbie Humphrey, age 73 with immunodeficiency on monthly IgG infusions, experienced nausea and fatigue this evening, and then spiked a fever. She has chronic dry cough, which she states is slightly worse today. Also complains of urinary urgency
and frequency over the past couple of days. She has been experiencing palpitations over the past few days, with heart rate spiking into 130s intermittently. Denies shortness of breath, chest pain/tightness, abdominal/pelvic pain, dysuria, hematuria,
headaches, lightheadedness, dizziness or blurry vision. No known recent sick contacts. She was mildly hypoxic on arrival and was put on 2L of O2. She uses 2L O2 at home only at night. Febrile and tachypneic on arrival with leukocytosis and lactic
acidosis. Of note, she had metastatic melanoma in 1970s which is now in remission. She developed sepsis multiple times over the past two decades and underwent immunological work-up which found an immunodeficiency. She gets monthly IgG infusions
(last infusion 2 weeks ago) via a port that was placed in 2004.
Past History
<Pastor Wright MD, Resident - Last Filed: 05/25/24 04:20>
Past History
ED Past Medical History: Arrthythmia (Atrial fib), Cancer (metastatic melanoma in remission), CHF, CVA, HTN, Hypercholesterolemia, IDDM, Hypothyroidism, Psychiatric (depression) and Other (Sleep apnea uses CPAP, lupus cerebritis, PNA, chronic
pulmonary edema. Wells's esophagus, C- diff, Renal calculus, E. coli bacteremia secondary to UTI; immunodeficiency on monthly IgG infusions)
ED Past Surgical History: Cardiac (Pacemaker. TAVR), Cholecystectomy, Gynecological (Hysterectomy), Orthopedic (ORIF right ankle) and Other (Parathyroidectomy, cataracts, )
Social History
Tobacco: Non-smoker
Alcohol: None
Personal:
Living: alone
Review of Systems
<Pastor Wright MD, Resident - Last Filed: 05/25/24 04:20>
Review of Systems
All Other Systems: Not applicable
Constitutional: Reports fever and fatigue
EENT: Reports no symptoms
Respiratory: Reports cough
Cardiac: Reports palpitations
ABD/GI: Reports no symptoms
: Reports frequency and urgency
Musculoskeletal: Reports no symptoms
Skin: Reports no symptoms
Neurological: Reports no symptoms
Endocrine: Reports no symptoms
Hematologic/Lymphatic: Reports no symptoms
Psychiatric: Reports no symptoms
Phy Exam
<Pastor Wright MD, Resident - Last Filed: 05/25/24 04:20>
General Physical Exam
General Presentation: well appearing and no apparent distress
General Skin: warm and dry
General Habitus: normal
General Mental: alert
General Hydration: appears well hydrated
ENT Exam
ENT Exam: EOMI, pharynx normal, neck supple and normocephalic
Eye Exam
Eye Exam: PERRL, cornea clear and conjunctiva normal
Cardiovascular Exam
Cardiovascular Exam: regular rate/rhythm, no edema, no murmur and normal peripheral pulses
Pulmonary Exam
Pulmonary Exam: lungs clear, no respiratory distress, no rales, no crackles, no rhonchi, no stridor, no wheezing and no cough
Gastrointestinal Exam
Gastrointestinal Exam: normal bowel sounds, non tender, soft, no organomegaly, no pulsatile mass and non distended
Neurological Exam
Neurological Exam: alert, oriented x3, no motor deficits and speech normal
Musculoskeletal Exam
Musculoskeletal Exam: full ROM and no edema
Skin Exam
Skin Exam: normal color, warm/dry, no rash and no petechia
Psychiatric Exam
Psychiatric Exam: normal mood/affect
Sepsis
<Pastor Wright MD, Resident - Last Filed: 05/25/24 04:20>
Sepsis Screening
Sepsis Assessment: Sepsis
Sepsis Screening: Lactate >2mmol/L
Sepsis Screen
Sepsis Screen: Sepsis
Date: 05/25/24
Time: 04:19
<Edson Flynn, DO - Last Filed: 05/25/24 03:42>
Sepsis Screen
Sepsis Screen: Sepsis
Date: 05/25/24
Time: 03:39
Course
<Pastor Wright MD, Resident - Last Filed: 05/25/24 04:20>
Orders/Labs/Results
Orders:
Orders
05/25/24 02:22
EKG [Electrocardiogram (*1)] Urgent
Reason for Study: Fatigue / Weakness
05/25/24 02:23
EKG- Treatment ONCE
CR Chest - 2 Views Urgent
Comment:
Reason For Exam: fever
05/25/24 02:28
COVID-19 Antigen Urgent
Source: Nasal Swab
Complete Blood Count/With Diff Urgent
Comprehensive Metabolic Panel Urgent
Lactate Level [Lactic Acid] Urgent
Influenza A+B Rapid Molecular Urgent
MIKAELA Source: Nasal Swab
Specimen Description:
05/25/24 02:52
Urinalysis Reflex To Culture Urgent
Date Specimen was Collected: 05/25/24
Time Specimen was Collected: 02:51
Urine Microscopic Reflex Cult Urgent
Urine Culture Urgent
MIKAELA Source: U
Specimen Description:
Date Specimen was Collected: 05/25/24
Time Specimen was Collected: 02:51
05/25/24 03:07
Ibuprofen [Motrin] 400 mg PO NOW STA
US Abdomen Complete/Upper Urgent
Comment:
Reason For Exam: transaminitis
05/25/24 03:15
0.9% Sodium Chloride 1000 ml [Nss] 1,800 ml IV NOW STA
Acetaminophen [Tylenol] 650 mg PO NOW STA
Piperacillin/Tazo 4.5 Gram [Zosyn] 4.5 gram in 100 ml IV NOW
05/25/24 03:43
Blood Culture Stat
MIKAELA Source: Blood/Venous
Specimen Description:
05/25/24 07:15
Lactic Acid Q4H
Comment: CANCEL 2nd LACTIC ACID IF 1st LACTIC ACID IS LESS THAN 2
Abnormal Lab Results
05/25/24 05/25/24
02:28 02:52
WBC 12.2 H 10^3/uL
(4.8-10.8)
Abs Immat Gran (auto) 0.1 H 10^3/uL
(0-0.05)
Absolute Neuts (auto) 11.6 H 10^3/uL
(1.4-6.5)
Absolute Lymphs (auto) 0.1 L 10^3/uL
(1.2-3.4)
Neutrophils % 95.3 H %
(42.2-75.2)
Lymphocytes % 0.9 L %
(20.5-51.1)
BUN 29 H mg/dl
(7-17)
Creatinine 1.1 H mg/dL
(0.6-1.0)
Glucose 243 H mg/dl
(70-99)
Lactic Acid 2.6 H mmol/L
(0.7-2.0)
AST 129 H U/L
(14-36)
ALT 94 H U/L
(0-35)
Alkaline Phosphatase 482 H U/L
(38-126)
Urine Bilirubin 1+ A
(Negative)
Urine Urobilinogen 2+ A
(Neg - 1+)
Leukocyte Esterase Rfl Trace A
(Negative)
Urine WBC (Reflex) 26-30 A /HPF
(0-5)
Urine Bacteria (Reflex) Moderate A
(Negative)
Urine Glucose 3+ A
(Negative)
05/25/24 02:28
05/25/24 02:28
Vital Signs
Initial and Last Documented VS:
Initial Vital Signs
Temp Pulse Resp BP Pulse Ox
102.9 F H 101 24 125/54 93
05/25/24 02:18 05/25/24 02:18 05/25/24 02:18 05/25/24 02:18 05/25/24 02:18
Last Documented Vital Signs
Temp Pulse Resp BP Pulse Ox
102.9 F H 97 30 94/43 96
05/25/24 02:18 05/25/24 04:16 05/25/24 04:16 05/25/24 04:16 05/25/24 04:16
<Edson Flynn, DO - Last Filed: 05/25/24 03:42>
Orders/Labs/Results
Orders:
Orders
05/25/24 02:22
EKG [Electrocardiogram (*1)] Urgent
Reason for Study: Fatigue / Weakness
05/25/24 02:23
EKG- Treatment ONCE
CR Chest - 2 Views Urgent
Comment:
Reason For Exam: fever
05/25/24 02:28
COVID-19 Antigen Urgent
Source: Nasal Swab
Complete Blood Count/With Diff Urgent
Comprehensive Metabolic Panel Urgent
Lactate Level [Lactic Acid] Urgent
Influenza A+B Rapid Molecular Urgent
MIKAELA Source: Nasal Swab
Specimen Description:
05/25/24 02:52
Urinalysis Reflex To Culture Urgent
Date Specimen was Collected: 05/25/24
Time Specimen was Collected: 02:51
Urine Microscopic Reflex Cult Urgent
Urine Culture Urgent
MIKAELA Source: U
Specimen Description:
Date Specimen was Collected: 05/25/24
Time Specimen was Collected: 02:51
05/25/24 03:07
Ibuprofen [Motrin] 400 mg PO NOW STA
US Abdomen Complete/Upper Urgent
Comment:
Reason For Exam: transaminitis
05/25/24 03:15
0.9% Sodium Chloride 1000 ml [Nss] 1,800 ml IV NOW STA
Acetaminophen [Tylenol] 650 mg PO NOW STA
Piperacillin/Tazo 4.5 Gram [Zosyn] 4.5 gram in 100 ml IV NOW
05/25/24 03:43
Blood Culture Stat
MIKAELA Source: Blood/Venous
Specimen Description:
05/25/24 07:15
Lactic Acid Q4H
Comment: CANCEL 2nd LACTIC ACID IF 1st LACTIC ACID IS LESS THAN 2
Abnormal Lab Results
05/25/24 05/25/24
02:28 02:52
WBC 12.2 H 10^3/uL
(4.8-10.8)
Abs Immat Gran (auto) 0.1 H 10^3/uL
(0-0.05)
Absolute Neuts (auto) 11.6 H 10^3/uL
(1.4-6.5)
Absolute Lymphs (auto) 0.1 L 10^3/uL
(1.2-3.4)
Neutrophils % 95.3 H %
(42.2-75.2)
Lymphocytes % 0.9 L %
(20.5-51.1)
BUN 29 H mg/dl
(7-17)
Creatinine 1.1 H mg/dL
(0.6-1.0)
Glucose 243 H mg/dl
(70-99)
Lactic Acid 2.6 H mmol/L
(0.7-2.0)
AST 129 H U/L
(14-36)
ALT 94 H U/L
(0-35)
Alkaline Phosphatase 482 H U/L
(38-126)
Urine Bilirubin 1+ A
(Negative)
Urine Urobilinogen 2+ A
(Neg - 1+)
Leukocyte Esterase Rfl Trace A
(Negative)
Urine WBC (Reflex) 26-30 A /HPF
(0-5)
Urine Bacteria (Reflex) Moderate A
(Negative)
Urine Glucose 3+ A
(Negative)
05/25/24 02:28
05/25/24 02:28
Vital Signs
Initial and Last Documented VS:
Initial Vital Signs
Temp Pulse Resp BP Pulse Ox
102.9 F H 101 24 125/54 93
05/25/24 02:18 05/25/24 02:18 05/25/24 02:18 05/25/24 02:18 05/25/24 02:18
Last Documented Vital Signs
Temp Pulse Resp BP Pulse Ox
102.9 F H 97 30 94/43 96
05/25/24 02:18 05/25/24 04:16 05/25/24 04:16 05/25/24 04:16 05/25/24 04:16
Odalislt;Edson Flynn DO - Last Filed: 05/25/24 03:42>
*Critical Care Note
Total Time (30-74mins, 75-104mins- exclusive of procedures): Not Applicable
ED Attending Note
<Pastor Wright MD, Resident - Last Filed: 05/25/24 04:20>
-
Portions of this chart may have been created with voice recognition software.� Occasional wrong word or��sound alike� substitutions may have occurred due to the inherent limitations of voice recognition software.
<Edson Flynn DO - Last Filed: 05/25/24 03:42>
ED Attending Note
Patient seen and examined by attending physician: Yes
I performed a history and physical exam of patient and discussed management with resident, I reviewed resident's note and agree with documented findings and plan of care.: Yes
ED Attending Note:
Pleasant 73-year-old female immunocompromised presents with fever and chills. She does have complaints of nausea and fatigue. Patient is immunocompromised and is on monthly IgG infusions. Patient has had history of sepsis several times in her
past. Patient reports urinary urgency and frequency. Denies mild suprapubic pain. Patient was seen in conjunction with the medicine resident. I have reviewed and agree with his history and treatment plan. On my independent physical exam,
patient is awake, alert, and oriented minimal acute distress. She is getting IV fluids. IV antibiotics ordered. Her heart is regular rate and rhythm. There is a slight murmur heard. Abdomen is soft nontender to palpation. Skin is warm and dry.
She moves all 4 extremities. She is mentating appropriately. Given her fever, slightly elevated white count, tachypnea patient to be admitted for urinary sepsis. Hospitalist is aware.
Discharge Plan
Departure
Patient Disposition: Admit
Date of Disposition: 05/25/24
Time of Disposition: 03:26
Presentation/result/management discussed w/ accepting MD/DO: Hospitalist
Discharge Problem:
Severe sepsis, Immunodeficiency, unspecified
Prescriptions:
No Action
cevimeline [Evoxac] 30 MG capsule
30 mg PO BID
venlafaxine [Effexor XR] 150 mg Capsule,Extended Release 24hr
300 mg PO DAILY
mycophenolate mofetil [CellCept] 500 mg Tablet
500 mg PO BID
pantoprazole [Protonix] 40 mg Tablet,Delayed Release (Dr/Ec)
40 mg PO BID
rosuvastatin [Crestor] 10 mg Tablet
10 mg PO HS
insulin glargine U-300 conc [Toujeo SoloStar U-300 Insulin] 300 unit/mL (1.5 mL) Insulin Pen
54 unit SC DAILY
dapsone 25 mg tablet
50 mg PO DAILY
carbamazepine [Tegretol] 200 mg tablet
200 mg PO BID
levothyroxine 137 mcg Tablet
137 mcg PO DAILY AT 0700
furosemide [Lasix] 40 mg Tablet
60 mg PO Daily
Rx Instructions:
May take additional 60mg with 2-3lbs weight gain a day, or 5 pound increase in a week
trazodone 100 mg Tablet
100 mg PO HS
famotidine 20 mg Tablet
20 mg PO HS Qty: 0 0RF
metoprolol tartrate 100 mg Tablet
50 mg PO BID
prednisone 5 mg Tablet
5 mg PO DAILY
Rx Instructions:
08/22/2023, take with one 1 mg tablet for a total of 6 mg daily.
ergocalciferol (vitamin D2) 1,250 mcg (50,000 unit) Capsule
1,250 mcg PO CENTENO
insulin lispro [Humalog KwikPen Insulin] 100 unit/mL Insulin Pen
0 sliding scale dose SC AC
Rx Instructions:
08/22/2023, if BS 90-150 = 0 units; 151-200 = 3 units; 201-250 = 6 units; 251-300 = 9 units; 301-350 = 12 units; >350 = 15 units.
potassium chloride [K-Belia] 20 mEq Packet
20 meq PO .MWF
calcitriol 0.25 mcg Capsule
0.5 mcg PO DAILY
prednisone 1 mg Tablet
1 mg PO DAILY
Rx Instructions:
taken w/ 5mg = 6mg
Eliquis 5 mg tablet
5 mg PO BID
tramadol 50 mg Tablet
50 mg PO Q6H PRN (Reason: pain)
dapagliflozin propanediol [Farxiga] 10 mg tablet
10 mg PO DAILY
acetaminophen [Tylenol Ex Str Arthritis Pain] 500 mg Tablet
1,000 mg PO Q6 PRN (Reason: pain)
Gemtesa 75 mg Tablet
75 mg PO DAILY
Referrals:
Susana Melendez MD [Family Provider] -
Interventions
Interventions:
*Risk Screen - Suicide Last Done: 05/25/24 02:18
*General Assessment Last Done: 05/25/24 02:18
*Neglect/Abuse Screening Last Done: 05/25/24 02:18
*ED COVID-19 Vaccine History Last Done: 05/25/24 02:18
ED- Neurological Assessment Last Done: 05/25/24 03:17
ED-Skin Assessment Last Done: 05/25/24 03:17
Discharge Date and Time
Print Language: LITHUANIAN
[2024-05-25 02:44] LABS: % Basophils 0.3 % (0-2); % Eosinophils 0.1 % (0-6); % Immature Granulocytes 0.4 % (0-0.5); % Lymphocytes 0.9 % (20.5-51.1); % Neutrophils 95.3 % (42.2-75.2); Absolute Immature Granulocytes 0.1 10^3/uL (0-0.05); Absolute Lymphocytes 0.1 10^3/uL (1.2-3.4); Absolute Monocytes 0.4 10^3/uL (0.1-0.6); Absolute Neutrophils 11.6 10^3/uL (1.4-6.5); Hematocrit 39.4 % (37.0-47.0); Hemoglobin 13.5 g/dL (12.0-16.0); Mean Corp Hgb Conc. 34.3 g/dL (33.0-37.0); Mean Corpuscular Hgb 30.2 pg (27.0-31.0); Mean Corpuscular Volume 88.1 fL (81.0-99.0); Mean Platelet Volume 9.6 fL (7.4-10.4); Nucleated Red Blood Cells % 0 %; Platelet Count 216 10^3/uL (130-400); Red Blood Cell Count 4.47 10^6/uL (4.20-5.40); Red Cell Dist. Width 13.3 % (11.5-14.5); White Blood Cell Count 12.2 10^3/uL (4.8-10.8)
[2024-05-25 02:57] LABS: Lactic Acid 2.6 mmol/L (0.7-2.0)
[2024-05-25 02:59] LABS: ALT (SGPT) 94 U/L (0-35); AST (SGOT) 129 U/L (14-36); Albumin 3.8 g/dl (3.5-5.0); Alkaline Phosphatase 482 U/L (38-126); Blood Urea Nitrogen 29 mg/dl (7-17); Calcium 8.7 mg/dl (8.4-10.2); Carbon Dioxide 24 mmol/L (22-30); Chloride 100 mmol/L (98-107); Glucose 243 mg/dl (70-99); Potassium 4.1 mmol/L (3.5-5.1); Sodium 138 mmol/L (135-145); Total Bilirubin 0.9 mg/dl (0.2-1.3); Total Protein 6.4 g/dl (6.3-8.2)
[2024-05-25 03:01] LABS: Urine Albumin Trace (Neg - Trace); Urine Bilirubin 1+ (Negative); Urine Character Clear (Clear); Urine Color Yellow; Urine Glucose 3+ (Negative); Urine Ketone Negative (Negative); Urine Leukocyte Trace (Negative); Urine Nitrite Negative (Negative); Urine Occult Blood Negative (Negative); Urine Specific Gravity 1.015 (<1.030); Urine Urobilinogen 2+ (Neg - 1+)
[2024-05-25 03:02] LABS: COVID-19 Antigen Negative (Negative)
[2024-05-25 03:10] LABS: Urine Bacteria Moderate (Negative); Urine Red Blood Cell None Seen /HPF (0-2); Urine White Cell 26-30 /HPF (0-5)
[2024-05-25] MEDS: TYLENOL 650 MG PO ×3 (03:39→19:52)
[2024-05-25] MEDS: ZOSYN 100 IV (03:44)
[2024-05-25] MEDS: NSS 1800 ML IV (03:44)
--- NOTE | 2024-05-25 05:22 | HPS.HSE ---
Family Physician
-
Family Physician: Susana Melendez MD
Chief Complaint
-
Sudden onset of fever and feeling ill
History of Present Illness
This is a 73-year-old female with extensive past medical history including CHF with diastolic dysfunction, AAS status post TAVR, paroxysmal atrial fibrillation status post pacemaker placement, lupus cerebritis, rheumatoid arthritis, Sjogren's,
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
presents to the emergency department with fevers chills disorientation and feeling ill.
Patient apparently went to bed last night in her usual state of health. She denied any symptoms. She arose this morning immediately feeling unwell. Throughout the day she stated she started having chills and noticed that she was peeing more than
usual. She takes 60 mg of Lasix daily. She denied having dysuria. He denied flank pain. She denied any nausea or vomiting except when she arrived in the emergency department she had 1 episode of nausea. Patient denies any cough or worsening
shortness of breath. She denies any changes in his skin, any joint swelling, headache neck stiffness or neck pain.
She recalls that the sensation is similar to prior urinary tract infection. She reports she has had multiple urinary tract infections that have been complicated by sepsis in the past. She does have overactive bladder.
On arrival in the emergency department she was febrile to one 1.9 blood pressure was 88/50, oxygen saturation was 93% on 2 L. ECG showed a sinus rhythm at a rate of 100 left bundle branch block and T wave inversions in the lateral leads. Chest
x-ray shows no acute infiltrates. Troponin was negative. She had a white count of 12,000 hemoglobin was 13.5 and a normal platelet count. Chemistry otherwise within normal limits. Lactic acid was slightly elevated 2.6. She had a slight
transaminitis with alk phos of 112. The bilirubin was normal. UA was positive with leukocyte esterase and WBC and moderate bacteria. There was negative for nitrites. She had a right upper quadrant ultrasound which shows no acute findings
consistent with cholecystitis or biliary ductal obstruction.
Medical History
Past Medical History
Past Medical History: Reports Arrhythmia (afib ), CHF, HTN, Hypothyroidism and IDDM
Additional Past Medical History:
Lupus cerebritis
Sjogren's
Rheumatoid arthritis
Heart block status post pacemaker
Aortic stenosis status post TAVR
IgG deficiency
TriGeminal neuralgia
Past Surgical History: Reports Other (TAVR)
Social History
Tobacco: Non-smoker
Alcohol: None
Drug: None
Personal:
Living: With Family
Employment: Retired
Family History
Family History: Not pertinent
Allergies / Home Medications
Allergies reflects when Allergies were last updated in [employer].
Home Medications with original date entered in [employer]
Allergy/Medication List:
Allergies
Allergy/AdvReac Type Severity Reaction Status Date / Time
adhesive Allergy Skin tears Verified 05/05/24 10:41
armodafinil [From Nuvigil] Allergy MAKES PT Verified 05/05/24 10:41
SUICIDAL,
Agnieszka
azathioprine sodium Allergy 105 FEVER Verified 05/05/24 10:41
[From Imuran]
gabapentin Allergy agnieszka Verified 05/05/24 10:41
Iodinated Contrast Media Allergy Anaphylaxis Verified 05/05/24 10:41
[IV Dye, Iodine Containing
Contrast ]
morphine sulfate Allergy 'HALLUCINAT Verified 05/05/24 10:41
[From MS Contin] IONS'
ondansetron Allergy lost BP Verified 05/05/24 10:41
and pulse
vilazodone HCl [From Viibryd] Allergy 'MANIC' Verified 05/05/24 10:41
Home Medications
cevimeline 30 mg capsule (Evoxac) 30 mg PO BID DRY MOUTH 02/01/21
insulin glargine U-300 conc 300 unit/mL (1.5 mL) subcutaneous pen (Toujeo SoloStar U-300 Insulin) 54 unit SC DAILY Diabetes 05/15/22
mycophenolate mofetil 500 mg tablet (CellCept) 500 mg PO BID lupus 05/15/22
pantoprazole 40 mg tablet,delayed release (Protonix) 40 mg PO BID Gastrointestinal issue 05/15/22
rosuvastatin 10 mg tablet (Crestor) 10 mg PO HS High cholesterol 05/15/22
venlafaxine 150 mg capsule,extended release 24 hr (Effexor XR) 300 mg PO DAILY Mental Health/Anxiety 05/15/22
dapsone 25 mg tablet 50 mg PO DAILY lupus 05/17/22
carbamazepine 200 mg tablet (Tegretol) 200 mg PO BID trigeminal neuralgia 11/06/22
levothyroxine 137 mcg tablet 137 mcg PO DAILY AT 0700 Thyroid 12/04/22
trazodone 100 mg tablet 100 mg PO HS Sleep 07/12/23
famotidine 20 mg tablet 20 mg PO HS #0 tabs 08/10/23
ergocalciferol (vitamin D2) 1,250 mcg (50,000 unit) capsule 1,250 mcg PO CENTENO Supplement 08/22/23
insulin lispro 100 unit/mL subcutaneous pen (Humalog KwikPen (U-100) Insulin) 0 sliding scale dose SC AC Diabetes 08/22/23
metoprolol tartrate 100 mg tablet 50 mg PO BID heart rate 08/22/23
prednisone 5 mg tablet 5 mg PO DAILY Anti-Inflammatory 08/22/23
furosemide 40 mg tablet (Lasix) 60 mg PO Daily Fluid Retention/Swelling 10/22/23
apixaban 5 mg tablet (Eliquis) 5 mg PO BID Blood Clot Prevention/Tx 11/14/23
prednisone 1 mg tablet 1 mg PO DAILY Anti-Inflammatory 11/14/23
calcitriol 0.25 mcg capsule 0.5 mcg PO DAILY 11/19/23
potassium chloride 20 mEq oral packet 20 meq PO .MWF 11/19/23
tramadol 50 mg tablet 50 mg PO Q6H PRN pain 03/10/24
dapagliflozin propanediol 10 mg tablet (Farxiga) 10 mg PO DAILY Diabetes 05/05/24
acetaminophen 500 mg tablet 1,000 mg PO Q6 PRN pain 05/25/24
vibegron 75 mg tablet (Gemtesa) 75 mg PO DAILY 05/25/24
Review of Systems
-
History Source: Patient
Constitutional: Reports Fever and Fatigue
EENT: Reports No Symptoms
Respiratory: Reports No Symptoms
Cardiac: Reports No Symptoms
Abdomen/GI: Reports Nausea
: Reports Frequency
Musculoskeletal: Reports No Symptoms
Skin: Reports No Symptoms
Neurological: Reports No Symptoms
Endocrine: Reports No Symptoms
Hematologic/Lymphatic: Reports No Symptoms
Psych: Reports No Symptoms
Physical Exam
Vital Signs
Vital Signs
Temp Pulse Resp BP Pulse Ox
101.9 F H 95 35 94/53 96
05/25/24 04:30 05/25/24 05:00 05/25/24 05:00 05/25/24 05:00 05/25/24 05:00
Physical Exam
General: No Apparent Distress and Obese
HEENT: NormoCephalic, Anicteric, Moist mucous membranes, PERRLA and Oxygen
Respiratory: Clear
Cardiac: S1/S2 and Regular Rhythm
Breast: Deferred by me
GI: Soft, Non Tender, Non Distended and Normal Bowel Sounds
Rectal: Deferred by Provider
Genito-urinary: Deferred by me
Musculoskeletal: No Clubbing, No Cyanosis and No Edema
Skin: Warm
Neuro: AO x 3
Hematologic/Lymphatic: No Lymphadenopathy
Psych: Calm
Laboratory Results
-
05/25/24 02:28
05/25/24 02:28
Laboratory Results
Lactic Acid Cancelled 05/25/24 03:15
Total Bilirubin 0.9 mg/dl (0.2-1.3) 05/25/24 02:28
AST 129 U/L (14-36) H 05/25/24 02:28
ALT 94 U/L (0-35) H 05/25/24 02:28
Alkaline Phosphatase 482 U/L (38-126) H 05/25/24 02:28
Data Reviewed
-
Diagnostic Radiology: Image Personally Visualized and interpreted
Ultrasound: Report Reviewed by me
Medical Tests (Nuc Med, Echo, EKG etc): Image Personally Visualized and interpreted
Lab Data: Labs Reviewed by me
Old Records: Reviewed
Impression/Plan
-
IMPRESSION:
This a 73-year-old female with extensive comorbidities most notable for being IgG deficient and on immunosuppression for lupus, RA who presents to the emergency department with 1 day of feeling heel and having fevers. Extensive evaluation in the ED
essentially shows a positive UA. Arrival right upper quadrant ultrasound is negative for any biliary process. Chest x-ray is without infiltrates. No significant shortness of breath hypoxia cough to suggest pulmonary process. She has no
neurological deficits denies any headache neck tenderness neck stiffness. She denies any acute abdominal symptoms. She has no new rash or joint swelling or pain. She has history of overactive bladder and recurrent UTIs. She has been admitted
with urosepsis on multiple occasions. Given the positive UA leukocytosis and septic picture the concern is for urosepsis.
PLAN:
1. Sepsis -patient with sepsis of likely a urinary source given positive UA and no other obvious source. History of urosepsis in the past. She has grown generally sensitive Proteus, E. coli resistant to fluoroquinolones and Enterobacter sensitive
to ceftriaxone. Nitrites negative. Immunocompromised.
- admit to IMU as MAP is borderline after 30ml/Kg bolus in ED
- blood cultures and urine cultures sent
- Cefepime 2mg IV q 8
- ID consultation.
2. CHF - Clear Xray on exam. No peripheral edema but cannot rule out some overload. Chronic O2 dependence
- holding lasix 60mg this am pending bp monitoring
- monitor weigh and i/o
3. AFIB - SR, rate controlled
- continue apixaban
- metoprolol 50mg bid with hold parameters (hold if SBP < 100)
4.- Lupus
- holding cellcept, continue prednisone 6mg daily
- stress steroids if hypotensive
- continue dapsone for now
5. DM II - On lantus 54 am and sliding scale at home
- lantus 40 am
- moderate sliding scale achs
- 1800 karen diet
- holding faxiga
DVT PPX - on apixaban
Code status - full code
[2024-05-25 06:20] LABS: Hematocrit 34.9 % (37.0-47.0); Hemoglobin 11.7 g/dL (12.0-16.0); Mean Corp Hgb Conc. 33.5 g/dL (33.0-37.0); Mean Corpuscular Volume 92.3 fL (81.0-99.0); Mean Platelet Volume 9.6 fL (7.4-10.4); Platelet Count 159 10^3/uL (130-400); Red Blood Cell Count 3.78 10^6/uL (4.20-5.40); Red Cell Dist. Width 13.2 % (11.5-14.5); White Blood Cell Count 9.9 10^3/uL (4.8-10.8)
[2024-05-25 06:32] LABS: Lactic Acid 1.7 mmol/L (0.7-2.0)
[2024-05-25] MEDS: SYNTHROID 137 MCG PO (07:46)
[2024-05-25] MEDS: DRISDOL (VITAMIN D2) 50000 UNITS PO (08:02)
[2024-05-25] MEDS: DELTASONE 1 MG PO (08:02)
[2024-05-25] MEDS: EFFEXOR XR 300 MG PO (08:02)
[2024-05-25] MEDS: DELTASONE 5 MG PO (08:02)
[2024-05-25] MEDS: DAPSONE 50 MG PO (08:03)
[2024-05-25] MEDS: ROCALTROL 0.5 MCG PO (08:07)
[2024-05-25] MEDS: PROTONIX 40 MG PO ×2 (08:08→19:53)
[2024-05-25] MEDS: ELIQUIS 5 MG PO ×2 (08:08→19:53)
[2024-05-25] MEDS: TEGRETOL 200 MG PO ×2 (08:12→19:53)
[2024-05-25] MEDS: FARXIGA 10 MG PO (08:12)
[2024-05-25] MEDS: MAXIPIME 2000 MG IV ×3 (08:12→23:12)
[2024-05-25] MEDS: LOPRESSOR 50 MG PO ×2 (08:13→19:53)
[2024-05-25] MEDS: STERILE WATER FOR INJECTION 10 ML IV ×3 (08:13→23:13)
[2024-05-25] MEDS: FLUSH (NSS) 2 FLUSH IV ×2 (08:16→16:40)
[2024-05-25 09:35] LABS: Glucose - Point of Care 164 mg/dl (70-99)
[2024-05-25] MEDS: NOVOLOG FLEXPEN-MODERATE RESISTANCE 1 UNITS SC ×2 (09:35→17:33)
[2024-05-25] MEDS: LANTUS 0.4 UNITS SC (09:36)
[2024-05-25] MEDS: NOVOLOG FLEXPEN-MODERATE RESISTANCE 3 UNITS SC (13:42)
[2024-05-25 13:43] LABS: Glucose - Point of Care 212 mg/dl (70-99)
--- NOTE | 2024-05-25 14:29 | CON.ID ---
Consultation
-
Date/Time Consultation Requested: 05/25/24 6:13
Date/Time Consultation Performed: 05/25/24 14:29
Requesting Provider: Dr Garsia
Performing Provider: Dr Braga
Reason for Consultation: sepsis
Chief Complaint / Past History
Chief Complaint
Sudden onset of fever and feeling ill
History of Present Illness
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 No flank pain or dysuria. No coughing,
shortness of breath, joint swelling, headache or stiffness
In the ER febrile to 102.9, bp stable, wbc 12.2 now 9.9, hgb 13.5, plt 216, L shift is noted, cr 1.1, t bili 0.9, ast 129, alt 94, alk phos 482, last IgG 05/05 was 620, UA: 26-30 wbc/hpf and moderate bacteria, covid ag negative, abd US:
cholecystectomy, cxr: no infiltrates, urine culture pending, single blood culture with GNR, flu pcr negative, patient currently on cefepime, presents for ID follow up.
Past History
Additional Past Medical History:
afib, CHF, HTN, Hypothyroidism and IDDM
Lupus cerebritis
Sjogren's
Rheumatoid arthritis
Heart block status post pacemaker
Aortic stenosis status post TAVR
IgG deficiency
TriGeminal neuralgia
Additional Past Surgical History:
TAVR
Allergy History:
adhesive Allergy (Verified 05/05/24 10:41)
Skin tears
armodafinil [From Nuvigil] Allergy (Verified 05/05/24 10:41)
MAKES PT SUICIDAL, Agnieszka
azathioprine sodium [From Imuran] Allergy (Verified 05/05/24 10:41)
105 FEVER
gabapentin Allergy (Verified 05/05/24 10:41)
agnieszka
Iodinated Contrast Media [IV Dye, Iodine Containing Contrast ] Allergy (Verified 05/05/24 10:41)
Anaphylaxis
morphine sulfate [From MS Contin] Allergy (Verified 05/05/24 10:41)
'HALLUCINATIONS'
ondansetron Allergy (Verified 05/05/24 10:41)
lost BP and pulse
vilazodone HCl [From Viibryd] Allergy (Verified 05/05/24 10:41)
'MANIC'
Medications Reviewed: Yes
Social History
Tobacco: Non-Smoker
Alcohol: None
Drug: None
Family History
Family History: Not Pertinent
Review of Systems
Review of Systems
General: Fever and Chills
All systems: All other systems were reviewed and were negative
Vital Signs
Temp Pulse Resp BP Pulse Ox
98.8 F 83 25 95/48 96
05/25/24 14:00 05/25/24 14:00 05/25/24 14:00 05/25/24 14:00 05/25/24 14:00
Physical Exam
Physical Exam
Constitutional: No Acute Distress
Cardiovascular: Regular Rate and S1/S2; Negative Murmur or Rub
Pulmonary: Clear and Symmetric; Negative Wheezes, Rales or Rhonchi
Gastrointestinal: Soft, Non Tender, Non Distended and Normal Bowel Sounds
Genito-Urinary: Negative Suprapubic Tenderness
Skin: Warm and Dry; Negative Rash or Jaundice
Lab / Diagnostic Study Results
05/25/24 06:05
05/25/24 02:28
Abs Immat Gran (auto) 0.1 10^3/uL (0-0.05) H 05/25/24 02:28
Absolute Neuts (auto) 11.6 10^3/uL (1.4-6.5) H 05/25/24 02:28
Absolute Lymphs (auto) 0.1 10^3/uL (1.2-3.4) L 05/25/24 02:28
Absolute Monos (auto) 0.4 10^3/uL (0.1-0.6) 05/25/24 02:28
Absolute Basos (auto) 0.0 10^3/uL (0-0.2) 05/25/24 02:28
Immature Gran % 0.4 % (0-0.5) 05/25/24 02:28
Neutrophils % 95.3 % (42.2-75.2) H 05/25/24 02:28
Lymphocytes % 0.9 % (20.5-51.1) L 05/25/24 02:28
Monocytes % 3.0 % (1.7-9.3) 05/25/24 02:28
Eosinophils % 0.1 % (0-6) 05/25/24 02:28
Basophils % 0.3 % (0-2) 05/25/24 02:28
Lactic Acid Cancelled 05/25/24 18:13
Ur Squamous Epith Cells 6-10 /LPF (Few) 05/25/24 02:52
Microbiology Results
Micro:
05/25/24 03:43 Blood Culture - Preliminary
Blood/Venous Positive culture in progress
Gram Stain - Preliminary
05/25/24 02:52 Urine Culture - Pending
Urine
05/25/24 02:28 Influenza Types A & B (ARIADNA) - Final
Nasal Swab Negative for Influenza A & B, NAAT
Negative results must be combined with clinical observations
and patient history.
Nucleic Acid Amplification test (NAAT)performed on the
[employer] platform.
Assessment / Plan
Gram Negative Bacteremia
Suspected UTI
- no need for repeat blood cultures for gram negative bacteremia
- urine culture in progress
- abd US s/p cholecystectomy, no hydronephrosis
- continue cefepime
follow clinically
[2024-05-25 17:34] LABS: Glucose - Point of Care 162 mg/dl (70-99)
--- NOTE | 2024-05-25 18:40 | PTCARENOTE ---
Pt received from ED. AAOx3. NSR on site monitor. SpO2 97% on RA. BP 102/47 MAP 62. afebrile at this time. Assessment documented. Pt resting in bed, call [place] in reach. Pt with positive Bcx. Ucx pending. ID following. Plan to continue IV abx.
[2024-05-25 21:34] LABS: Glucose - Point of Care 142 mg/dl (70-99)
[2024-05-25] MEDS: CRESTOR 10 MG PO (23:11)
[2024-05-25] MEDS: DESYREL 100 MG PO (23:11)
[2024-05-25] MEDS: PEPCID 20 MG PO (23:12)
[2024-05-26] VITALS (14 sets, daily range): BP systolic 88–130; BP diastolic 44–90; BMI 34.6
[2024-05-26 00:17] LABS: Glucose - Point of Care 125 mg/dl (70-99)
[2024-05-26] MEDS: SYNTHROID 137 MCG PO (05:55)
[2024-05-26 06:17] LABS: % Basophils 0.2 % (0-2); % Immature Granulocytes 0.6 % (0-0.5); % Lymphocytes 4.1 % (20.5-51.1); % Neutrophils 83.1 % (42.2-75.2); Absolute Eosinophils 0.2 10^3/uL (0-0.7); Absolute Immature Granulocytes 0.1 10^3/uL (0-0.05); Absolute Lymphocytes 0.5 10^3/uL (1.2-3.4); Absolute Monocytes 1.2 10^3/uL (0.1-0.6); Absolute Neutrophils 10.1 10^3/uL (1.4-6.5); Hematocrit 32.3 % (37.0-47.0); Hemoglobin 10.8 g/dL (12.0-16.0); Mean Corp Hgb Conc. 33.4 g/dL (33.0-37.0); Mean Corpuscular Hgb 31.2 pg (27.0-31.0); Mean Corpuscular Volume 93.4 fL (81.0-99.0); Nucleated Red Blood Cells % 0 %; Platelet Count 141 10^3/uL (130-400); Red Blood Cell Count 3.46 10^6/uL (4.20-5.40); Red Cell Dist. Width 13.7 % (11.5-14.5); White Blood Cell Count 12.1 10^3/uL (4.8-10.8)
[2024-05-26 06:33] LABS: Blood Urea Nitrogen 38 mg/dl (7-17); Calcium 8.3 mg/dl (8.4-10.2); Carbon Dioxide 26 mmol/L (22-30); Chloride 104 mmol/L (98-107); Estimated Creatinine Clearance 52 ml/min; Glucose 108 mg/dl (70-99); Potassium 3.8 mmol/L (3.5-5.1); Sodium 140 mmol/L (135-145)
--- NOTE | 2024-05-26 07:59 | W.PN.HOSP.TC ---
Today's Communication/Plan
-
see bold
Assessment / Plan
Assessment / Plan
Gen: NAD, AAOx3, NCAT.
Eyes: EOMI, PERRLA, no scleral icterus.
Neck: supple.
CV: RRR, +S1/S2, no m/r/g.
Resp: CTAB, no rales, wheezes, or rhonchi.
Abd: +BS, soft, NT, ND
Skin: No rashes.
Neuro: CN 2-12 intact, non-focal.
Psych: Normal mood and affect.
Sepsis due to UTI:
-pt immunosuppressed
-s/p 30cc/kg IVF bolus
-cont Cefepime as per ID
-BCx with E coli, follow sensitivities
Chronic hypoxemic respiratory failure due to chronic HFpEF:
-holding home lasix
-cont BB/Farxiga
Paroxysmal atrial fibrillation:
-cont Eliquis/BB
SLE:
-holding Cellcept
-cont Prednisone/Dapsone
DM2:
-cont Lantus/SSI/accuchecks
Obesity due to excess calories:-Affects all aspects of care
-Encourage weight loss
FULL/Eliquis
Anticipated Discharge: > 48 hours
Subjective/Interval History
-
Date of Service: May 26, 2024
No new complaints.
Objective Data
-
Labs:
Laboratory Results
05/26/24
05:56
WBC 12.1 H
Hgb 10.8 L
Hct 32.3 L
Plt Count 141
Sodium 140
Potassium 3.8
Chloride 104
Carbon Dioxide 26
BUN 38 H
Creatinine 1.1 H
Glucose 108 H
Calcium 8.3 L
Vital Signs:
Vital Signs
Temp Pulse Resp BP Pulse Ox
97.7 F 73 19 94/55 96
05/26/24 03:35 05/26/24 06:15 05/26/24 06:15 05/26/24 06:00 05/26/24 06:15
I&O
05/25/24 05/26/24 05/27/24
06:59 06:59 06:59
Intake Total 240 / 240
Output Total 850 / 850
Balance -610 / -610
[2024-05-26] MEDS: NOVOLOG FLEXPEN-MODERATE RESISTANCE SC ×2 (08:07→17:59)
[2024-05-26] MEDS: STERILE WATER FOR INJECTION 10 ML IV ×3 (08:08→23:33)
[2024-05-26] MEDS: MAXIPIME 2000 MG IV (08:08)
[2024-05-26] MEDS: DELTASONE 1 MG PO (08:09)
[2024-05-26] MEDS: FARXIGA 10 MG PO (08:09)
[2024-05-26] MEDS: LANTUS 0.4 UNITS SC (08:09)
[2024-05-26] MEDS: PROTONIX 40 MG PO ×2 (08:09→20:09)
[2024-05-26] MEDS: ROCALTROL 0.5 MCG PO (08:09)
[2024-05-26] MEDS: DELTASONE 5 MG PO (08:10)
[2024-05-26] MEDS: DAPSONE 50 MG PO (08:11)
[2024-05-26] MEDS: LOPRESSOR 50 MG PO ×2 (08:12→20:10)
[2024-05-26] MEDS: ELIQUIS 5 MG PO ×2 (08:12→20:10)
[2024-05-26] MEDS: EFFEXOR XR 300 MG PO (08:12)
[2024-05-26] MEDS: TEGRETOL 200 MG PO ×2 (08:12→20:09)
[2024-05-26 08:15] LABS: Glucose - Point of Care 103 mg/dl (70-99)
[2024-05-26] MEDS: TYLENOL 650 MG PO ×2 (09:34→23:35)
--- NOTE | 2024-05-26 10:36 | PTCARENOTE ---
Assumed care of patient. She is aaox3, pleasant. Assessment as documented. Pt did c/o of some neck pain that she reports she needs surgery on but cannot get due to cardiac health. Medicated with Tylenol per patient's request, see MAR. VS and care as
documented.
--- NOTE | 2024-05-26 11:43 | W.PN.ID1 ---
Date of Service
Date of Service: May 26, 2024
Today's Communication
c/w cefepime
Assessment / Plan
E coli Bacteremia
UTI
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
Immunosuppression
- no need for repeat blood cultures for gram negative bacteremia
- urine culture in progress, 100K GNR likely E coli
- abd US s/p cholecystectomy, no hydronephrosis
- qtc 472
- check post void residual
- continue cefepime - deescalate as able
follow clinically
Chief Complaint
-: Fever, UTI and Bacteremia
Subjective / Review of Systems
no further fevers
bp stable
no events overnight
no new complaints
Vital Signs / Physical Exam
Vital Signs
Vital Signs
Temp Pulse Resp BP Pulse Ox
98.1 F 70 28 95/44 96
05/26/24 07:55 05/26/24 10:00 05/26/24 10:00 05/26/24 10:00 05/26/24 10:00
Physical Exam
Constitutional: No Acute Distress, Chronically Ill and Obese
Cardiovascular: Regular Rate and S1/S2; Negative Murmur or Rub
Pulmonary: Clear and Symmetric; Negative Wheezes or Rales
Gastrointestinal: Soft, Non Tender, Non Distended and Normal Bowel Sounds
Skin: Warm and Dry; Negative Rash or Jaundice
Objective Data
Lab Data
Lab Results
05/26/24 05:56
05/26/24 05:56
Estimated Creat Clear 52 ml/min 05/26/24 05:56
Lactic Acid Cancelled 05/25/24 18:13
Total Bilirubin 0.9 mg/dl (0.2-1.3) 05/25/24 02:28
AST 129 U/L (14-36) H 05/25/24 02:28
ALT 94 U/L (0-35) H 05/25/24 02:28
Alkaline Phosphatase 482 U/L (38-126) H 05/25/24 02:28
Most recent labs reviewed as above in addition:
L shift persists but improved to 83% from 95%
Micro Results:
05/25/24 02:52 Urine Culture - Preliminary
Urine Gram negative bacilli
05/25/24 03:43 Blood Culture - Preliminary
Blood/Venous Escherichia coli
Gram Stain - Preliminary
05/25/24 02:28 Influenza Types A & B (ARIADNA) - Final
Nasal Swab Negative for Influenza A & B, NAAT
Negative results must be combined with clinical observations
and patient history.
Nucleic Acid Amplification test (NAAT)performed on the
[employer] NOW platform.
[2024-05-26] MEDS: NOVOLOG FLEXPEN-MODERATE RESISTANCE 1 UNITS SC (11:55)
[2024-05-26 12:04] LABS: Glucose - Point of Care 163 mg/dl (70-99)
[2024-05-26] MEDS: MAXIPIME 1000 MG IV ×2 (16:26→23:33)
--- NOTE | 2024-05-26 17:01 | CM ---
Patient with Hx SLE with Dx Sepsis due to UTI. O2 2L. Receiving IV Abx.
Met with patient and daughter Aparna;
the patient resides with her daughter Aparna in a 1 story house with 2 NAZIA.
The patient has been assisted with ADLs and ambulates with her RW.
The patient is a retired nurse.
Her daughter is a high court justice.
DME - RW, SPC, commode, shower chair, home O2 concentrator (uses HS)
VN prior [facility]
SNF - prior [place] x2
PCP - Susana Melendez
Pharmacy - [facility] Jacky [place], [place]
Offered VN and daughter would like her to have nurse again at home- patient chooses [facility].
Referral to [facility].
Plan home with [facility].
[2024-05-26 17:37] LABS: Glucose - Point of Care 119 mg/dl (70-99)
[2024-05-26 20:20] LABS: Glucose - Point of Care 191 mg/dl (70-99)
[2024-05-26 22:24] LABS: Glucose - Point of Care 146 mg/dl (70-99)
[2024-05-26] MEDS: CRESTOR 10 MG PO (23:32)
[2024-05-26] MEDS: DESYREL 100 MG PO (23:33)
[2024-05-26] MEDS: PEPCID 20 MG PO (23:33)
[2024-05-27] VITALS (8 sets, daily range): BP systolic 90–147; BP diastolic 40–69; BMI 35.4
[2024-05-27] MEDS: SYNTHROID 137 MCG PO (06:11)
[2024-05-27 06:28] LABS: % Basophils 0.2 % (0-2); % Eosinophils 2.3 % (0-6); % Immature Granulocytes 0.5 % (0-0.5); % Lymphocytes 4.8 % (20.5-51.1); % Monocytes 9.2 % (1.7-9.3); Absolute Eosinophils 0.2 10^3/uL (0-0.7); Absolute Lymphocytes 0.4 10^3/uL (1.2-3.4); Absolute Monocytes 0.8 10^3/uL (0.1-0.6); Absolute Neutrophils 6.9 10^3/uL (1.4-6.5); Hemoglobin 10.2 g/dL (12.0-16.0); Mean Corp Hgb Conc. 32.9 g/dL (33.0-37.0); Mean Corpuscular Hgb 29.2 pg (27.0-31.0); Mean Corpuscular Volume 88.8 fL (81.0-99.0); Mean Platelet Volume 9.8 fL (7.4-10.4); Nucleated Red Blood Cells % 0 %; Platelet Count 160 10^3/uL (130-400); Red Blood Cell Count 3.49 10^6/uL (4.20-5.40); Red Cell Dist. Width 13.4 % (11.5-14.5); White Blood Cell Count 8.3 10^3/uL (4.8-10.8)
[2024-05-27 06:43] LABS: Blood Urea Nitrogen 34 mg/dl (7-17); Calcium 8.4 mg/dl (8.4-10.2); Carbon Dioxide 24 mmol/L (22-30); Chloride 105 mmol/L (98-107); Estimated Creatinine Clearance 64 ml/min; Glucose 80 mg/dl (70-99); Potassium 3.6 mmol/L (3.5-5.1); Sodium 140 mmol/L (135-145); eGFR > 60.00
--- NOTE | 2024-05-27 07:54 | W.PN.HOSP.TC ---
Addendum entered and electronically signed by Jv Coy MD 05/27/24 11:44:
Hypoxia intermittent home O2 use
Original Note:
Today's Communication/Plan
-
see bold
Assessment / Plan
Assessment / Plan
Gen: remains NAD, AAOx3, NCAT.
Eyes: EOMI, PERRLA, no scleral icterus.
Neck: supple.
CV: remains RRR, +S1/S2, no m/r/g.
Resp: remains CTAB, no rales, wheezes, or rhonchi.
Abd: +BS, soft, NT, ND
Skin: No rashes.
Neuro: CN 2-12 intact, non-focal.
Psych: Normal mood and affect.
05/25/24 02:52 Urine Urine Culture - Preliminary
Gram negative bacilli
05/25/24 03:43 Blood/Venous Blood Culture - Preliminary
Escherichia coli
05/25/24 03:43 Blood/Venous Gram Stain - Preliminary
05/25/24 02:28 Nasal Swab Influenza Types A & B (ARIADNA) - Final
Negative for Influenza A & B, NAAT
Negative results must be combined with clinical observations
and patient history.
Nucleic Acid Amplification test (NAAT)performed on the
[employer] ID NOW platform.
Sepsis due to UTI:
-pt immunosuppressed
-s/p 30cc/kg IVF bolus
-cont Cefepime as per ID
-BCx with E coli, follow sensitivities
Chronic hypoxemic respiratory failure due to chronic HFpEF:
-holding home lasix
-cont BB/Farxiga
Paroxysmal atrial fibrillation:
-cont Eliquis/BB
SLE:
-holding Cellcept
-cont Prednisone/Dapsone
DM2:
-cont Lantus/SSI/accuchecks
Obesity due to excess calories:
-Affects all aspects of care
-Encourage weight loss
FULL/Eliquis
Anticipated Discharge: Within 24 hours
Subjective/Interval History
-
Date of Service: May 27, 2024
'I'm feeling a little bit better.'
Objective Data
-
Labs:
Laboratory Results
05/27/24
06:06
WBC 8.3
Hgb 10.2 L
Hct 31.0 L
Plt Count 160
Sodium 140
Potassium 3.6
Chloride 105
Carbon Dioxide 24
BUN 34 H
Creatinine 0.9
Glucose 80
Calcium 8.4
Vital Signs:
Vital Signs
Temp Pulse Resp BP Pulse Ox
98.4 F 72 21 130/63 96
05/27/24 03:00 05/26/24 23:00 05/26/24 23:00 05/26/24 22:00 05/26/24 23:00
I&O
05/26/24 05/27/24 05/28/24
06:59 06:59 06:59
Intake Total 240 / 240 1200 / 1200
Output Total 850 / 850 600 / 600
Balance -610 / -610 600 / 600
[2024-05-27] MEDS: NOVOLOG FLEXPEN-MODERATE RESISTANCE SC ×2 (08:39→14:36)
[2024-05-27 08:45] LABS: Glucose - Point of Care 84 mg/dl (70-99)
[2024-05-27] MEDS: LANTUS 0.4 UNITS SC (09:13)
[2024-05-27] MEDS: TEGRETOL 200 MG PO ×2 (09:13→20:39)
[2024-05-27] MEDS: DELTASONE 5 MG PO (09:13)
[2024-05-27] MEDS: DELTASONE 1 MG PO (09:14)
[2024-05-27] MEDS: EFFEXOR XR 300 MG PO (09:14)
[2024-05-27] MEDS: ELIQUIS 5 MG PO ×2 (09:14→20:39)
[2024-05-27] MEDS: LOPRESSOR 50 MG PO ×2 (09:14→20:38)
[2024-05-27] MEDS: DAPSONE 50 MG PO (09:14)
[2024-05-27] MEDS: ROCALTROL 0.5 MCG PO (09:15)
[2024-05-27] MEDS: FARXIGA 10 MG PO (09:15)
[2024-05-27] MEDS: MAXIPIME 1000 MG IV (09:15)
[2024-05-27] MEDS: PROTONIX 40 MG PO ×2 (09:15→20:38)
[2024-05-27] MEDS: STERILE WATER FOR INJECTION 10 ML IV (09:15)
[2024-05-27] MEDS: TYLENOL 650 MG PO ×2 (09:21→22:02)
--- NOTE | 2024-05-27 09:50 | PN.CDI ---
CDI
- -
CDI:
Physician Documentation Request
Admit Date: 05/25/24 05:56
Dear Doctor Zbigniew,
ED record states 'She uses 2L O2 at home only at night'
Progress note states 'Chronic hypoxemic respiratory failure due to chronic HFpEF'
Please clarify the patient's respiratory status:
Chronic hypoxemic respiratory failure - continuous use of oxygen
Hypoxia intermittent home o2 use
Other
Use of terms such as suspected, likely, concern for, or probable (associated with a specific diagnosis that is being evaluated, monitored, or treated as if it exists) are acceptable and can be coded in the inpatient setting, when documented at the
time of discharge.
Thank you,
Ruba Benitez RN, BSN
CDI Specialist
tiger text
Please use your independent medical judgment in providing your response.
--- NOTE | 2024-05-27 10:37 | W.PN.ID1 ---
Date of Service
Date of Service: May 27, 2024
Today's Communication
- check post void residual - I do not see documented on my flow sheet,
- switched to keflex 500 mg PO QID through 06/02 - day course
follow up with pcp
Assessment / Plan
E coli Bacteremia
UTI
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
Immunosuppression
- no need for repeat blood cultures for gram negative bacteremia
- urine culture 100K E coli
- check post void residual - I do not see documented on my flow sheet,
- switched to keflex 500 mg PO QID through 06/02 - day course
follow up with pcp
Chief Complaint
-: Fever, UTI and Bacteremia
Subjective / Review of Systems
afebrile
bp stable
no suprapubic or flank pain
no complaints
Vital Signs / Physical Exam
Vital Signs
Vital Signs
Temp Pulse Resp BP Pulse Ox
98.2 F 73 21 124/69 96
05/27/24 07:55 05/27/24 09:14 05/26/24 23:00 05/27/24 09:14 05/26/24 23:00
Physical Exam
Constitutional: No Acute Distress and Chronically Ill
Cardiovascular: Regular Rate and S1/S2; Negative Murmur or Rub
Pulmonary: Clear and Symmetric; Negative Wheezes or Rales
Gastrointestinal: Soft, Non Tender, Non Distended and Normal Bowel Sounds
Genito-Urinary: Negative Suprapubic Tenderness
Skin: Warm and Dry; Negative Rash or Jaundice
Objective Data
Lab Data
Lab Results
05/27/24 06:06
05/27/24 06:06
Estimated Creat Clear 64 ml/min 05/27/24 06:06
Lactic Acid Cancelled 05/25/24 18:13
Total Bilirubin 0.9 mg/dl (0.2-1.3) 05/25/24 02:28
AST 129 U/L (14-36) H 05/25/24 02:28
ALT 94 U/L (0-35) H 05/25/24 02:28
Alkaline Phosphatase 482 U/L (38-126) H 05/25/24 02:28
Most recent labs reviewed.
Micro Results:
05/25/24 03:43 Blood Culture - Final
Blood/Venous Escherichia coli
Gram Stain - Final
05/25/24 02:52 Urine Culture - Final
Urine Escherichia coli
05/25/24 02:28 Influenza Types A & B (ARIADNA) - Final
Nasal Swab Negative for Influenza A & B, NAAT
Negative results must be combined with clinical observations
and patient history.
Nucleic Acid Amplification test (NAAT)performed on the
[employer] NOW platform.
--- NOTE | 2024-05-27 11:30 | PTCARENOTE ---
Patient c/o slight head ache, nausea, poor appetite and upset stomach from previous constipation. Tylenol provided. Had BM. Weaned to RA. VSS. Downgraded to m/s, awaiting bed. Will closely monitor.
--- NOTE | 2024-05-27 11:45 | VNURNOTE ---
Home Health Liaison met with patient at bedside to discuss [facility] nurse/therapy, visits, schedule and homebound status. Patient is agreeable and understands that visits at home will be 2-3 x per week to assess and teach medical management. She has
had [facility] over the summer. She confirms she has DME at home- Medical. [facility] brochure provided with contact information. Patient is aware that [facility] will contact them for start of care in 1-2 days after discharge from . [facility] referral completed in
[facility].
[2024-05-27 12:24] LABS: Glucose - Point of Care 174 mg/dl (70-99)
[2024-05-27] MEDS: KEFLEX 500 MG PO ×3 (12:28→22:02)
[2024-05-27 14:06] LABS: Glucose - Point of Care 116 mg/dl (70-99)
[2024-05-27] MEDS: NOVOLOG FLEXPEN-MODERATE RESISTANCE 1 UNITS SC (17:19)
[2024-05-27 17:22] LABS: Glucose - Point of Care 172 mg/dl (70-99)
[2024-05-27 21:56] LABS: Glucose - Point of Care 177 mg/dl (70-99)
[2024-05-27] MEDS: DESYREL 100 MG PO (22:02)
[2024-05-27] MEDS: CRESTOR 10 MG PO (22:02)
[2024-05-27] MEDS: PEPCID 20 MG PO (22:02)
[2024-05-28 06:00] VITALS: BMI 35.0
[2024-05-28] MEDS: SYNTHROID 137 MCG PO (06:24)
[2024-05-28 07:50] VITALS: BP 109/48
[2024-05-28 08:10] LABS: Glucose - Point of Care 133 mg/dl (70-99)
[2024-05-28] MEDS: PROTONIX 40 MG PO (08:26)
[2024-05-28] MEDS: FARXIGA 10 MG PO (08:26)
[2024-05-28] MEDS: ROCALTROL 0.5 MCG PO (08:27)
[2024-05-28] MEDS: DELTASONE 1 MG PO (08:27)
[2024-05-28] MEDS: LOPRESSOR 50 MG PO (08:28)
[2024-05-28] MEDS: DELTASONE 5 MG PO (08:28)
[2024-05-28] MEDS: KEFLEX 500 MG PO ×3 (08:29→18:44)
[2024-05-28] MEDS: EFFEXOR XR 300 MG PO (08:29)
[2024-05-28] MEDS: ELIQUIS 5 MG PO (08:29)
[2024-05-28] MEDS: TEGRETOL 200 MG PO (08:30)
[2024-05-28] MEDS: DAPSONE 50 MG PO (08:44)
[2024-05-28] MEDS: LANTUS 0.4 UNITS SC (08:44)
--- NOTE | 2024-05-28 10:16 | W.PN.HOSP.TC ---
Today's Communication/Plan
-
d/c
Assessment / Plan
Assessment / Plan
Gen: Continues to NAD, AAOx3, NCAT.
Eyes: EOMI, PERRLA, no scleral icterus.
Neck: supple.
CV: Continues to remain RRR, +S1/S2, no m/r/g.
Resp: Continues to CTAB, no rales, wheezes, or rhonchi.
Abd: +BS, soft, NT, ND
Skin: No rashes.
Neuro: CN 2-12 intact, non-focal.
Psych: Normal mood and affect.
05/25/24 03:43 Blood/Venous Blood Culture - Final
Escherichia coli
05/25/24 03:43 Blood/Venous Gram Stain - Final
05/25/24 02:52 Urine Urine Culture - Final
Escherichia coli
05/25/24 02:28 Nasal Swab Influenza Types A & B (ARIADNA) - Final
Negative for Influenza A & B, NAAT
Negative results must be combined with clinical observations
and patient history.
Nucleic Acid Amplification test (NAAT)performed on the
[employer] ID NOW platform.
Sepsis due to UTI:
-pt immunosuppressed
-s/p 30cc/kg IVF bolus
-was on Cefepime, now transitioned to Keflex through 06/02/24 as per ID
-BCx with E coli, follow sensitivities
Hypoxia with intermittent home O2 use due to chronic HFpEF:
-holding home lasix
-cont BB/Farxiga
Paroxysmal atrial fibrillation:
-cont Eliquis/BB
SLE:
-restart Cellcept
-cont Prednisone/Dapsone
DM2:
-cont Lantus/SSI/accuchecks
Obesity due to excess calories:
-Affects all aspects of care
-Encourage weight loss
FULL/Eliquis
Medically cleared for discharge. Case management aware.
Total time spent on d/c = 32 min. This included today's physical exam, progress note, review of laboratory and diagnostic data, preparation of discharge documents and prescriptions, and discussions about the pt's hospital course and discharge plan
with the patient and other [employer]ator [employer] museum involved in the patient's care.
Anticipated Discharge: Today
Subjective/Interval History
-
Date of Service: May 28, 2024
No new complaints.
Objective Data
-
Labs:
Laboratory Results
05/28/24
10:06
WBC Pending
Hgb Pending
Hct Pending
Plt Count Pending
Sodium Pending
Potassium Pending
Chloride Pending
Carbon Dioxide Pending
BUN Pending
Creatinine Pending
Glucose Pending
Calcium Pending
Vital Signs:
Vital Signs
Temp Pulse Resp BP Pulse Ox
99.6 F 85 17 109/48 93
05/28/24 07:50 05/28/24 08:28 05/28/24 07:50 05/28/24 08:28 05/28/24 07:50
I&O
05/27/24 05/28/24 05/29/24
06:59 06:59 06:59
Intake Total 1200 / 1200 440 / 440
Output Total 600 / 600 300 / 300
Balance 600 / 600 140 / 140
[2024-05-28] MEDS: NOVOLOG FLEXPEN-MODERATE RESISTANCE SC (10:24)
[2024-05-28 10:34] LABS: % Basophils 0.3 % (0-2); % Eosinophils 1.7 % (0-6); % Immature Granulocytes 0.6 % (0-0.5); % Lymphocytes 4.2 % (20.5-51.1); % Monocytes 11.4 % (1.7-9.3); % Neutrophils 81.8 % (42.2-75.2); Absolute Eosinophils 0.2 10^3/uL (0-0.7); Absolute Immature Granulocytes 0.1 10^3/uL (0-0.05); Absolute Lymphocytes 0.4 10^3/uL (1.2-3.4); Absolute Monocytes 1.2 10^3/uL (0.1-0.6); Absolute Neutrophils 8.4 10^3/uL (1.4-6.5); Hematocrit 32.6 % (37.0-47.0); Hemoglobin 10.8 g/dL (12.0-16.0); Mean Corp Hgb Conc. 33.1 g/dL (33.0-37.0); Mean Corpuscular Hgb 29.7 pg (27.0-31.0); Mean Corpuscular Volume 89.6 fL (81.0-99.0); Mean Platelet Volume 9.8 fL (7.4-10.4); Nucleated Red Blood Cells % 0 %; Platelet Count 190 10^3/uL (130-400); Red Blood Cell Count 3.64 10^6/uL (4.20-5.40); Red Cell Dist. Width 13.6 % (11.5-14.5); White Blood Cell Count 10.2 10^3/uL (4.8-10.8)
[2024-05-28] MEDS: TYLENOL 650 MG PO (11:37)
[2024-05-28 12:19] LABS: Glucose - Point of Care 234 mg/dl (70-99)
[2024-05-28 12:26] LABS: Blood Urea Nitrogen 21 mg/dl (7-17); Calcium 8.5 mg/dl (8.4-10.2); Carbon Dioxide 23 mmol/L (22-30); Chloride 104 mmol/L (98-107); Estimated Creatinine Clearance 71 ml/min; Glucose 130 mg/dl (70-99); Sodium 137 mmol/L (135-145); eGFR > 60.00
[2024-05-28] MEDS: NOVOLOG FLEXPEN-MODERATE RESISTANCE 3 UNITS SC (13:16)
--- NOTE | 2024-05-28 15:44 | W.DCSUMMARY ---
Discharge Summary
Discharge Data
Date of Admission: 05/25/24
Date of Discharge: 05/28/24
-
Pending Results: No
Hospital Course
Primary diagnoses:
Sepsis due to urinary tract infection
Secondary diagnoses:
Hypoxia with intermittent home O2 use due to chronic heart failure preserved ejection fraction
Paroxysmal atrial fibrillation
Systemic lupus erythematosus
Type 2 diabetes mellitus
Obesity due to excess calories
Consultants:
Infectious Disease
Imaging:
CXR: No active cardiopulmonary disease.
Abd U/S: No evidence of acute pathology. Normal liver. Cholecystectomy. 1.5 cm right renal cyst.
Hospital course: 73-year-old female presented with chief complaints of sudden onset of fever and feeling ill as outlined in the H&P done on admission. She met sepsis criteria on admission. She was immunocompromised due to immunosuppressants she
was on for her systemic lupus erythematosus. She had a leukocytosis on admission that resolved. She received a 30cc/kg IVF bolus. She was placed on broad-spectrum antibiotics including cefepime. Her blood culture and urine culture grew E. coli.
She was transitioned to Keflex through 06/02/24 as per ID. She was discharged in medically stable condition.
Discharge Plan
-
Patient Disposition: Home (Routine Discharge)
Discharge Diagnosis/Procedures: Acute urinary tract infection
Condition: Good
Diet: Diabetic, Carb Controlled
Activity: As tolerated
Driving Restrictions: As prior to admission
Referrals:
Susana Melendez MD [Family Provider] - in less than 1 week
Prescriptions:
New
cephalexin 500 mg Capsule
500 mg PO QID Qty: 24 0RF
Continued
cevimeline [Evoxac] 30 MG capsule
30 mg PO BID
venlafaxine [Effexor XR] 150 mg Capsule,Extended Release 24hr
300 mg PO DAILY
mycophenolate mofetil [CellCept] 500 mg Tablet
500 mg PO BID
pantoprazole [Protonix] 40 mg Tablet,Delayed Release (Dr/Ec)
40 mg PO BID
insulin glargine U-300 conc [T[employer] SoloStar U-300 Insulin] 300 unit/mL (1.5 mL) Insulin Pen
54 unit SC DAILY
dapsone 25 mg tablet
50 mg PO DAILY
carbamazepine [Tegretol] 200 mg tablet
200 mg PO BID
levothyroxine 137 mcg Tablet
137 mcg PO DAILY AT 0700
furosemide [Lasix] 40 mg Tablet
40 mg PO Daily
Rx Instructions:
Take with 20mg tab for total of 60mg
trazodone 100 mg Tablet
100 mg PO HS
famotidine 20 mg Tablet
20 mg PO HS Qty: 0 0RF
metoprolol tartrate 100 mg Tablet
50 mg PO BID
prednisone 5 mg Tablet
5 mg PO DAILY
Rx Instructions:
take with one 1 mg tablet for a total of 6 mg daily.
ergocalciferol (vitamin D2) 1,250 mcg (50,000 unit) Capsule
1,250 mcg PO CENTENO
insulin lispro [Humalog KwikPen Insulin] 100 unit/mL Insulin Pen
0 sliding scale dose SC AC
Rx Instructions:
08/22/2023, if BS 90-150 = 0 units; 151-200 = 3 units; 201-250 = 6 units; 251-300 = 9 units; 301-350 = 12 units; >350 = 15 units.
potassium chloride 20 mEq Packet
20 meq PO MOWEFR
prednisone 1 mg Tablet
1 mg PO DAILY
Rx Instructions:
taken w/ 5mg = 6mg
Eliquis 5 mg tablet
5 mg PO BID
tramadol 50 mg Tablet
50 mg PO Q6HPRN PRN (Reason: moderate pain)
dapagliflozin propanediol [Farxiga] 10 mg tablet
10 mg PO DAILY
acetaminophen 500 mg Tablet
1,000 mg PO Q6HPRN PRN (Reason: mild pain)
Gemtesa 75 mg Tablet
75 mg PO DAILY
Patient Comments:
05/25/24: Family states patient is just finishing trial dosage
therapeutic multivitamin Tablet
1 tab PO DAILY
calcitriol 0.5 mcg Capsule
0.5 mcg PO DAILY
furosemide 20 mg Tablet
20 mg PO DAILY
Rx Instructions:
take with 40mg for total of 60mg
nystatin [Klayesta] 100,000 unit/gram Powder
1 applic TOPICAL BIDPRN PRN (Reason: groin)
rosuvastatin 10 mg Tablet
10 mg PO HS
Discharge Orders:
Discharge Patient (As Directed); Ordered 05/28/24
Ordered By: Jv Coy
Discharge Date and Time
Print Language: LEBANESE
[2024-05-28 16:00] VITALS: BP 137/67
[2024-05-28 16:48] LABS: Glucose - Point of Care 165 mg/dl (70-99)
[2024-05-28] MEDS: NOVOLOG FLEXPEN-MODERATE RESISTANCE 1 UNITS SC (17:07)
== END 2024-05-28 19:44 | disposition home health service (06) | DRG 872 ==
LOC: 3 WEST ACU 05:56
PROVIDERS: Nurse Practitioner Family; Student in an Organized Health Care Education/Training Program; ADMITTING PHYSICIAN Internal Medicine; ATTENDING PHYSICIAN Internal Medicine; CONSULT PHYSICIAN Student in an Organized Health Care Education/Training Program; EMERGENCY PHYSICIAN Student in an Organized Health Care Education/Training Program; FAMILY PHYSICIAN Student in an Organized Health Care Education/Training Program
DX: A41.51 Sepsis due to Escherichia coli [E. coli] (principal); D80.3 Selective deficiency of immunoglobulin G [IgG] subclasses; D84.821 Immunodeficiency due to drugs; J96.11 Chronic respiratory failure with hypoxia; E87.20 Acidosis, unspecified; I50.32 Chronic diastolic (congestive) heart failure; N39.0 Urinary tract infection, site not specified; Z16.23 Resistance to quinolones and fluoroquinolones; M32.19 Other organ or system involvement in systemic lupus erythematosus; I11.0 Hypertensive heart disease with heart failure; E03.9 Hypothyroidism, unspecified; E11.9 Type 2 diabetes mellitus without complications; E66.09 Other obesity due to excess calories; F32.A Depression, unspecified; M35.00 Sjogren syndrome, unspecified; M06.9 Rheumatoid arthritis, unspecified; Z95.2 Presence of prosthetic heart valve; Z99.81 Dependence on supplemental oxygen; R65.20 Severe sepsis without septic shock; E78.00 Pure hypercholesterolemia, unspecified; G47.30 Sleep apnea, unspecified; G50.0 Trigeminal neuralgia; I44.7 Left bundle-branch block, unspecified; I48.0 Paroxysmal atrial fibrillation; K22.70 Barrett's esophagus without dysplasia; R74.01 Elevation of levels of liver transaminase levels; N32.81 Overactive bladder; Z79.01 Long term (current) use of anticoagulants; Z79.4 Long term (current) use of insulin; Z79.624 Long term (current) use of inhibitors of nucleotide synthesis; Z79.890 Hormone replacement therapy; Z79.899 Other long term (current) drug therapy; Z87.442 Personal history of urinary calculi; Z87.440 Personal history of urinary (tract) infections; Z85.820 Personal history of malignant melanoma of skin; Z90.710 Acquired absence of both cervix and uterus; Z95.0 Presence of cardiac pacemaker
CPT/HCPCS: 71046; 76700; 80048; 80053; 81003; 81015; 82962; 83605; 85025; 85027; 87040; 87077; 87086; 87149; 87186; 87205; 87502; 87811; 93005; 96365; 99285

== ENCOUNTER → 2024-05-31 08:44 | Outpatient (REF) | payer MEDICARE, OTHER, SELFPAY ==
[2024-05-31 09:38] LABS: % Basophils 0.4 % (0-2); % Eosinophils 3.6 % (0-6); % Immature Granulocytes 1.9 % (0-0.5); % Lymphocytes 9.4 % (20.5-51.1); % Monocytes 8.2 % (1.7-9.3); % Neutrophils 76.5 % (42.2-75.2); Absolute Eosinophils 0.4 10^3/uL (0-0.7); Absolute Immature Granulocytes 0.2 10^3/uL (0-0.05); Absolute Monocytes 0.9 10^3/uL (0.1-0.6); Absolute Neutrophils 7.9 10^3/uL (1.4-6.5); Hematocrit 34.6 % (37.0-47.0); Hemoglobin 11.5 g/dL (12.0-16.0); Mean Corp Hgb Conc. 33.2 g/dL (33.0-37.0); Mean Corpuscular Hgb 29.9 pg (27.0-31.0); Mean Corpuscular Volume 89.9 fL (81.0-99.0); Mean Platelet Volume 9.4 fL (7.4-10.4); Nucleated Red Blood Cells % 0 %; Platelet Count 312 10^3/uL (130-400); Red Blood Cell Count 3.85 10^6/uL (4.20-5.40); White Blood Cell Count 10.3 10^3/uL (4.8-10.8)
[2024-05-31 10:07] LABS: ALT (SGPT) 38 U/L (0-35); AST (SGOT) 29 U/L (14-36); Albumin 3.5 g/dl (3.5-5.0); Alkaline Phosphatase 421 U/L (38-126); Blood Urea Nitrogen 23 mg/dl (7-17); Calcium 8.9 mg/dl (8.4-10.2); Carbon Dioxide 27 mmol/L (22-30); Chloride 103 mmol/L (98-107); Glucose 194 mg/dl (70-99); Potassium 4.8 mmol/L (3.5-5.1); Sodium 142 mmol/L (135-145); Total Bilirubin 0.5 mg/dl (0.2-1.3); Total Protein 6.1 g/dl (6.3-8.2); eGFR > 60.00
[2024-05-31 10:47] LABS: Urine Albumin Negative (Neg - Trace); Urine Bilirubin Negative (Negative); Urine Character Clear (Clear); Urine Color Yellow; Urine Glucose 3+ (Negative); Urine Ketone Negative (Negative); Urine Leukocyte Negative (Negative); Urine Nitrite Negative (Negative); Urine Occult Blood Negative (Negative); Urine Specific Gravity 1.015 (<1.030); Urine Urobilinogen Negative (Neg - 1+)
[2024-05-31 12:33] LABS: Erythrocyte Sed Rate > 145 mm/hour (0-20)
[2024-06-01 23:11] LABS: Complement C3 172 mg/dl (88-165)
[2024-06-03 01:22] LABS: ds-DNA Ab, IgG Reflex To Titer 8 IU (0-24)
== END ==
LOC: REG 08:44
PROVIDERS: ATTENDING PHYSICIAN Internal Medicine Rheumatology; FAMILY PHYSICIAN Student in an Organized Health Care Education/Training Program
DX: M32.9 Systemic lupus erythematosus, unspecified (principal); M81.0 Age-related osteoporosis without current pathological fracture; D80.1 Nonfamilial hypogammaglobulinemia; M35.01 Sjogren syndrome with keratoconjunctivitis; M35.00 Sjogren syndrome, unspecified
CPT/HCPCS: 36415; 80053; 81003; 84155; 84165; 85025; 85652; 86160; 86225

== ENCOUNTER 2024-06-02 10:17 | Outpatient (RCR) | payer MEDICARE, OTHER, SELFPAY ==
[2024-06-02] VITALS (10 sets, daily range): BP systolic 111–144; BP diastolic 50–68
[2024-06-02] MEDS: TYLENOL 650 MG PO (11:17)
[2024-06-02] MEDS: GAMMAGARD 50 IV (11:18)
[2024-06-02] MEDS: BENADRYL 25 MG PO (11:18)
[2024-06-02] MEDS: GAMMAGARD 200 IV ×2 (12:23→13:51)
[2024-06-02 12:37] LABS: IgG 638 mg/dl (700-1600)
== END 2024-06-02 15:58 | disposition home or self-care (01) ==
LOC: OID 10:17
PROVIDERS: ATTENDING PHYSICIAN Allergy & Immunology; FAMILY PHYSICIAN Student in an Organized Health Care Education/Training Program
DX: D80.9 Immunodeficiency with predominantly antibody defects, unspecified (principal); I50.32 Chronic diastolic (congestive) heart failure; I48.0 Paroxysmal atrial fibrillation; Z95.2 Presence of prosthetic heart valve; D80.8 Other immunodeficiencies with predominantly antibody defects; M06.9 Rheumatoid arthritis, unspecified; M35.00 Sjogren syndrome, unspecified
CPT/HCPCS: 82784; 96365; 96366; J1569

== ENCOUNTER 2024-06-30 10:28 | Outpatient (RCR) | payer MEDICARE, OTHER, SELFPAY ==
[2024-06-30] VITALS (10 sets, daily range): BP systolic 106–143; BP diastolic 56–87
[2024-06-30] MEDS: TYLENOL 650 MG PO (11:08)
[2024-06-30] MEDS: BENADRYL 25 MG PO (11:08)
[2024-06-30] MEDS: GAMMAGARD 50 IV (11:09)
[2024-06-30] MEDS: GAMMAGARD 200 IV ×2 (12:13→13:39)
[2024-06-30 15:22] LABS: IgG 667 mg/dl (700-1600)
== END 2024-07-01 11:39 | disposition home or self-care (01) ==
LOC: OID 10:28
PROVIDERS: ATTENDING PHYSICIAN Allergy & Immunology; FAMILY PHYSICIAN Student in an Organized Health Care Education/Training Program
DX: D80.9 Immunodeficiency with predominantly antibody defects, unspecified (principal); I50.32 Chronic diastolic (congestive) heart failure; I48.0 Paroxysmal atrial fibrillation; Z95.2 Presence of prosthetic heart valve; D80.8 Other immunodeficiencies with predominantly antibody defects; M32.9 Systemic lupus erythematosus, unspecified; M06.9 Rheumatoid arthritis, unspecified; M35.00 Sjogren syndrome, unspecified
CPT/HCPCS: 82784; 96365; 96366; J1569

== ENCOUNTER 2024-08-04 10:38 | Outpatient (RCR) | payer MEDICARE, OTHER, SELFPAY ==
[2024-08-04] VITALS (10 sets, daily range): BP systolic 116–162; BP diastolic 49–71
[2024-08-04] MEDS: TYLENOL 650 MG PO (11:15)
[2024-08-04] MEDS: GAMMAGARD 50 IV (11:16)
[2024-08-04] MEDS: BENADRYL 25 MG PO (11:16)
[2024-08-04 12:10] LABS: IgG 650 mg/dl (700-1600)
[2024-08-04] MEDS: GAMMAGARD 200 IV ×2 (12:24→13:50)
== END 2024-08-26 12:38 | disposition home or self-care (01) ==
LOC: OID 10:38
PROVIDERS: ATTENDING PHYSICIAN Allergy & Immunology; FAMILY PHYSICIAN Student in an Organized Health Care Education/Training Program
DX: M32.9 Systemic lupus erythematosus, unspecified (principal); M35.00 Sjogren syndrome, unspecified; M06.9 Rheumatoid arthritis, unspecified; D80.9 Immunodeficiency with predominantly antibody defects, unspecified; I50.32 Chronic diastolic (congestive) heart failure; I48.0 Paroxysmal atrial fibrillation; Z95.2 Presence of prosthetic heart valve; D80.8 Other immunodeficiencies with predominantly antibody defects
CPT/HCPCS: 82784; 96365; 96366; J1569

== ENCOUNTER → 2024-09-02 17:06 | Outpatient (REF) | payer MEDICARE, OTHER, SELFPAY ==
[2024-09-02 17:42] LABS: % Basophils 0.3 % (0-2); % Eosinophils 1.5 % (0-6); % Immature Granulocytes 0.6 % (0-0.5); % Lymphocytes 8.4 % (20.5-51.1); % Monocytes 9.1 % (1.7-9.3); % Neutrophils 80.1 % (42.2-75.2); Absolute Eosinophils 0.1 10^3/uL (0-0.7); Absolute Immature Granulocytes 0.1 10^3/uL (0-0.05); Absolute Lymphocytes 0.8 10^3/uL (1.2-3.4); Absolute Monocytes 0.8 10^3/uL (0.1-0.6); Absolute Neutrophils 7.1 10^3/uL (1.4-6.5); Hematocrit 43.4 % (37.0-47.0); Hemoglobin 13.7 g/dL (12.0-16.0); Mean Corp Hgb Conc. 31.6 g/dL (33.0-37.0); Mean Corpuscular Hgb 29.1 pg (27.0-31.0); Mean Corpuscular Volume 92.1 fL (81.0-99.0); Mean Platelet Volume 9.1 fL (7.4-10.4); Nucleated Red Blood Cells % 0 %; Platelet Count 355 10^3/uL (130-400); Red Blood Cell Count 4.71 10^6/uL (4.20-5.40); White Blood Cell Count 8.9 10^3/uL (4.8-10.8)
[2024-09-02 17:59] LABS: ALT (SGPT) 22 U/L (0-35); AST (SGOT) 26 U/L (14-36); Albumin 4.1 g/dl (3.5-5.0); Alkaline Phosphatase 211 U/L (38-126); Blood Urea Nitrogen 21 mg/dl (7-17); Calcium 9.2 mg/dl (8.4-10.2); Carbon Dioxide 34 mmol/L (22-30); Chloride 96 mmol/L (98-107); Glucose 191 mg/dl (70-99); Potassium 4.6 mmol/L (3.5-5.1); Sodium 139 mmol/L (135-145); Total Bilirubin 0.4 mg/dl (0.2-1.3); Total Protein 6.9 g/dl (6.3-8.2); eGFR 58.75
[2024-09-02 18:00] LABS: Lipase 147 U/L (23-300)
== END ==
LOC: REG 17:06
PROVIDERS: ATTENDING PHYSICIAN Student in an Organized Health Care Education/Training Program
DX: R10.31 Right lower quadrant pain (principal)
CPT/HCPCS: 36415; 74018; 80053; 83690; 85025

== ENCOUNTER → 2024-09-05 12:48 | Outpatient (REF) | payer MEDICARE, OTHER, SELFPAY | LOC: HWRAD 12:48 | PROVIDERS: ATTENDING PHYSICIAN Student in an Organized Health Care Education/Training Program | DX: R10.31 Right lower quadrant pain (principal) | CPT/HCPCS: 74176 ==

== ENCOUNTER 2024-09-08 10:33 | Outpatient (RCR) | payer MEDICARE, OTHER, SELFPAY ==
[2024-09-08] VITALS (10 sets, daily range): BP systolic 98–131; BP diastolic 49–63
[2024-09-08] MEDS: CATHFLO/ACTIVASE 2 MG IV (11:28)
[2024-09-08] MEDS: TYLENOL 650 MG PO (11:29)
[2024-09-08] MEDS: BENADRYL 25 MG PO (11:29)
[2024-09-08] MEDS: GAMMAGARD 50 IV (12:32)
[2024-09-08] MEDS: GAMMAGARD 200 IV ×2 (13:30→14:56)
== END 2024-09-09 11:43 | disposition home or self-care (01) ==
LOC: OID 10:33
PROVIDERS: ATTENDING PHYSICIAN Allergy & Immunology; FAMILY PHYSICIAN Student in an Organized Health Care Education/Training Program
DX: M32.9 Systemic lupus erythematosus, unspecified (principal); N18.31 Chronic kidney disease, stage 3a (principal); M35.00 Sjogren syndrome, unspecified; M06.9 Rheumatoid arthritis, unspecified; D80.9 Immunodeficiency with predominantly antibody defects, unspecified; I48.0 Paroxysmal atrial fibrillation; I50.32 Chronic diastolic (congestive) heart failure; Z95.2 Presence of prosthetic heart valve; Z79.01 Long term (current) use of anticoagulants; D80.8 Other immunodeficiencies with predominantly antibody defects
CPT/HCPCS: 96365; 96366; 96375; J1569; J2997

== ENCOUNTER 2024-10-06 10:46 | Outpatient (RCR) | payer MEDICARE, OTHER, SELFPAY ==
[2024-10-06] VITALS (10 sets, daily range): BP systolic 116–141; BP diastolic 43–64
[2024-10-06] MEDS: TYLENOL 650 MG PO (11:28)
[2024-10-06] MEDS: GAMMAGARD 50 IV (11:28)
[2024-10-06] MEDS: BENADRYL 25 MG PO (11:28)
[2024-10-06] MEDS: GAMMAGARD 200 IV ×2 (12:31→13:58)
[2024-10-06 14:14] LABS: IgG 712 mg/dl (700-1600)
== END 2024-10-07 09:43 | disposition home or self-care (01) ==
LOC: OID 10:46
PROVIDERS: ATTENDING PHYSICIAN Allergy & Immunology; FAMILY PHYSICIAN Student in an Organized Health Care Education/Training Program
DX: M32.9 Systemic lupus erythematosus, unspecified (principal); N18.31 Chronic kidney disease, stage 3a (principal); M35.00 Sjogren syndrome, unspecified; M06.9 Rheumatoid arthritis, unspecified; D80.9 Immunodeficiency with predominantly antibody defects, unspecified; I50.32 Chronic diastolic (congestive) heart failure; I48.0 Paroxysmal atrial fibrillation; Z95.2 Presence of prosthetic heart valve; Z79.01 Long term (current) use of anticoagulants; D80.8 Other immunodeficiencies with predominantly antibody defects
CPT/HCPCS: 82784; 96365; 96366; J1569

== ENCOUNTER 2024-11-03 10:35 | Outpatient (RCR) | payer MEDICARE, OTHER, SELFPAY ==
[2024-11-03] VITALS (10 sets, daily range): BP systolic 114–142; BP diastolic 49–81
[2024-11-03] MEDS: TYLENOL 650 MG PO (11:26)
[2024-11-03] MEDS: BENADRYL 25 MG PO (11:26)
[2024-11-03] MEDS: GAMMAGARD 50 IV (11:28)
[2024-11-03] MEDS: GAMMAGARD 200 IV ×2 (12:34→14:02)
[2024-11-03 13:02] LABS: IgG 691 mg/dl (700-1600)
== END 2024-11-04 11:13 | disposition home or self-care (01) ==
LOC: OID 10:35
PROVIDERS: ATTENDING PHYSICIAN Allergy & Immunology; FAMILY PHYSICIAN Student in an Organized Health Care Education/Training Program
DX: D80.8 Other immunodeficiencies with predominantly antibody defects (principal); D80.3 Selective deficiency of immunoglobulin G [IgG] subclasses; N18.31 Chronic kidney disease, stage 3a; M32.9 Systemic lupus erythematosus, unspecified; M35.00 Sjogren syndrome, unspecified; M06.9 Rheumatoid arthritis, unspecified; D80.9 Immunodeficiency with predominantly antibody defects, unspecified; I50.32 Chronic diastolic (congestive) heart failure; I48.0 Paroxysmal atrial fibrillation; Z95.2 Presence of prosthetic heart valve; Z79.01 Long term (current) use of anticoagulants
CPT/HCPCS: 82784; 96365; 96366; J1569

== ENCOUNTER 2024-12-01 09:59 | Outpatient (RCR) | payer MEDICARE, OTHER, SELFPAY ==
[2024-12-01] VITALS (10 sets, daily range): BP systolic 119–155; BP diastolic 37–74
[2024-12-01] MEDS: BENADRYL 25 MG PO (10:25)
[2024-12-01] MEDS: TYLENOL 650 MG PO (10:25)
[2024-12-01] MEDS: GAMMAGARD 50 IV (10:26)
[2024-12-01 11:02] LABS: % Basophils 0.2 % (0-2); % Eosinophils 2.2 % (0-6); % Immature Granulocytes 0.3 % (0-0.5); % Lymphocytes 8.6 % (20.5-51.1); % Monocytes 9.7 % (1.7-9.3); Absolute Eosinophils 0.2 10^3/uL (0-0.7); Absolute Lymphocytes 0.8 10^3/uL (1.2-3.4); Absolute Neutrophils 7.7 10^3/uL (1.4-6.5); Hematocrit 38.5 % (37.0-47.0); Hemoglobin 12.3 g/dL (12.0-16.0); Mean Corp Hgb Conc. 31.9 g/dL (33.0-37.0); Mean Corpuscular Hgb 29.9 pg (27.0-31.0); Mean Corpuscular Volume 93.4 fL (81.0-99.0); Mean Platelet Volume 9.5 fL (7.4-10.4); Nucleated Red Blood Cells % 0 %; Platelet Count 220 10^3/uL (130-400); Red Blood Cell Count 4.12 10^6/uL (4.20-5.40); Red Cell Dist. Width 13.3 % (11.5-14.5); White Blood Cell Count 9.8 10^3/uL (4.8-10.8)
[2024-12-01 11:04] LABS: ALT (SGPT) 23 U/L (0-35); AST (SGOT) 28 U/L (14-36); Albumin 3.9 g/dl (3.5-5.0); Alkaline Phosphatase 200 U/L (38-126); Blood Urea Nitrogen 30 mg/dl (7-17); Calcium 8.7 mg/dl (8.4-10.2); Carbon Dioxide 26 mmol/L (22-30); Chloride 103 mmol/L (98-107); Glucose 234 mg/dl (70-99); Sodium 140 mmol/L (135-145); Total Bilirubin 0.6 mg/dl (0.2-1.3); Total Protein 6.3 g/dl (6.3-8.2); eGFR > 60.00
[2024-12-01 11:09] LABS: IgG 754 mg/dl (700-1600)
[2024-12-01] MEDS: GAMMAGARD 200 IV ×2 (11:21→12:45)
== END 2024-12-02 09:07 | disposition home or self-care (01) ==
LOC: OID 09:59
PROVIDERS: ATTENDING PHYSICIAN Allergy & Immunology; FAMILY PHYSICIAN Student in an Organized Health Care Education/Training Program
DX: M32.9 Systemic lupus erythematosus, unspecified (principal); M35.00 Sjogren syndrome, unspecified; M06.9 Rheumatoid arthritis, unspecified; D80.9 Immunodeficiency with predominantly antibody defects, unspecified; I50.32 Chronic diastolic (congestive) heart failure; I48.0 Paroxysmal atrial fibrillation; Z95.2 Presence of prosthetic heart valve; D80.8 Other immunodeficiencies with predominantly antibody defects
CPT/HCPCS: 80053; 82784; 85025; 96365; 96366; J1569

== ENCOUNTER → 2024-12-02 10:57 | Outpatient (REF) | payer MEDICARE, OTHER, SELFPAY | LOC: RCS 10:57 | PROVIDERS: ATTENDING PHYSICIAN Internal Medicine; FAMILY PHYSICIAN Student in an Organized Health Care Education/Training Program | DX: I50.32 Chronic diastolic (congestive) heart failure (principal); Z98.2 Presence of cerebrospinal fluid drainage device | CPT/HCPCS: 93306 ==

== ENCOUNTER 2024-12-29 10:33 | Outpatient (RCR) | payer MEDICARE, OTHER, SELFPAY ==
[2024-12-29] VITALS (11 sets, daily range): BP systolic 109–144; BP diastolic 57–67
[2024-12-29] MEDS: TYLENOL 650 MG PO (11:02)
[2024-12-29] MEDS: BENADRYL 25 MG PO (11:03)
[2024-12-29] MEDS: GAMMAGARD 50 IV (11:03)
[2024-12-29] MEDS: GAMMAGARD 200 IV ×2 (12:05→13:30)
[2024-12-29 12:08] LABS: IgG 763 mg/dl (700-1600)
== END 2024-12-30 09:15 | disposition home or self-care (01) ==
LOC: OID 10:33
PROVIDERS: ATTENDING PHYSICIAN Allergy & Immunology; FAMILY PHYSICIAN Student in an Organized Health Care Education/Training Program
DX: M32.9 Systemic lupus erythematosus, unspecified (principal); M35.00 Sjogren syndrome, unspecified; M06.9 Rheumatoid arthritis, unspecified; I48.0 Paroxysmal atrial fibrillation; D80.9 Immunodeficiency with predominantly antibody defects, unspecified; Z95.2 Presence of prosthetic heart valve; I50.32 Chronic diastolic (congestive) heart failure; Z79.01 Long term (current) use of anticoagulants; D80.8 Other immunodeficiencies with predominantly antibody defects
CPT/HCPCS: 82784; 96365; 96366; J1569

== ENCOUNTER 2025-02-23 10:23 | Outpatient (RCR) | payer MEDICARE, OTHER, SELFPAY ==
[2025-01-26] VITALS (10 sets, daily range): BP systolic 102–145; BP diastolic 41–71
[2025-01-26] MEDS: BENADRYL 25 MG PO (11:15)
[2025-01-26] MEDS: TYLENOL 650 MG PO (11:15)
[2025-01-26] MEDS: GAMMAGARD 50 IV (11:16)
[2025-01-26] MEDS: GAMMAGARD 200 IV ×2 (12:23→13:51)
[2025-01-26 12:40] LABS: IgG 756 mg/dl (700-1600)
[2025-02-23] VITALS (10 sets, daily range): BP systolic 118–154; BP diastolic 56–73
[2025-02-23] MEDS: BENADRYL 25 MG PO (11:09)
[2025-02-23] MEDS: TYLENOL 650 MG PO (11:09)
[2025-02-23] MEDS: GAMMAGARD 50 IV (11:10)
[2025-02-23] MEDS: GAMMAGARD 200 IV ×2 (12:19→13:47)
[2025-02-23 16:08] LABS: IgG 746 mg/dl (700-1600)
== END 2025-02-23 23:59 | disposition home or self-care (01) ==
LOC: OID 10:23
PROVIDERS: ATTENDING PHYSICIAN Allergy & Immunology; FAMILY PHYSICIAN Student in an Organized Health Care Education/Training Program
DX: D80.3 Selective deficiency of immunoglobulin G [IgG] subclasses (principal); N18.31 Chronic kidney disease, stage 3a; M35.00 Sjogren syndrome, unspecified; M06.9 Rheumatoid arthritis, unspecified; M32.9 Systemic lupus erythematosus, unspecified; D80.9 Immunodeficiency with predominantly antibody defects, unspecified; I48.0 Paroxysmal atrial fibrillation; I50.32 Chronic diastolic (congestive) heart failure; Z79.01 Long term (current) use of anticoagulants; Z95.2 Presence of prosthetic heart valve; D80.8 Other immunodeficiencies with predominantly antibody defects
CPT/HCPCS: 82784; 96365; 96366; J1569

== ENCOUNTER 2025-03-23 10:32 | Outpatient (RCR) | payer MEDICARE, OTHER, SELFPAY ==
[2025-03-23] VITALS (10 sets, daily range): BP systolic 105–146; BP diastolic 44–66
[2025-03-23] MEDS: TYLENOL 650 MG PO (11:48)
[2025-03-23] MEDS: BENADRYL 25 MG PO (11:49)
[2025-03-23] MEDS: GAMMAGARD 50 IV (11:49)
[2025-03-23] MEDS: GAMMAGARD 200 IV ×2 (12:56→14:21)
== END 2025-03-24 11:01 | disposition home or self-care (01) ==
LOC: OID 10:32
PROVIDERS: ATTENDING PHYSICIAN Allergy & Immunology; FAMILY PHYSICIAN Student in an Organized Health Care Education/Training Program
DX: D80.3 Selective deficiency of immunoglobulin G [IgG] subclasses (principal); M32.9 Systemic lupus erythematosus, unspecified; M35.00 Sjogren syndrome, unspecified; M06.9 Rheumatoid arthritis, unspecified; D80.9 Immunodeficiency with predominantly antibody defects, unspecified; I50.32 Chronic diastolic (congestive) heart failure; I48.0 Paroxysmal atrial fibrillation; Z95.2 Presence of prosthetic heart valve; D80.8 Other immunodeficiencies with predominantly antibody defects
CPT/HCPCS: 82784; 96365; 96366; J1569

== ENCOUNTER → 2025-04-08 09:58 | Outpatient (REF) | payer MEDICARE, OTHER, SELFPAY | LOC: CLAB 09:58 | PROVIDERS: ATTENDING PHYSICIAN Specialist | DX: N39.0 Urinary tract infection, site not specified (principal) | CPT/HCPCS: 87077; 87086 ==

== ENCOUNTER 2025-04-20 10:31 | Outpatient (RCR) | payer MEDICARE, OTHER, SELFPAY ==
[2025-04-20] VITALS (10 sets, daily range): BP systolic 105–137; BP diastolic 50–62
[2025-04-20] MEDS: TYLENOL 650 MG PO (11:34)
[2025-04-20] MEDS: BENADRYL 25 MG PO (11:35)
[2025-04-20] MEDS: GAMMAGARD 50 IV (11:35)
[2025-04-20] MEDS: GAMMAGARD 200 IV ×2 (12:39→14:07)
== END 2025-04-26 23:59 | disposition home or self-care (01) ==
LOC: OID 10:31
PROVIDERS: ATTENDING PHYSICIAN Allergy & Immunology
DX: D80.8 Other immunodeficiencies with predominantly antibody defects (principal); D80.3 Selective deficiency of immunoglobulin G [IgG] subclasses; I48.0 Paroxysmal atrial fibrillation; M32.9 Systemic lupus erythematosus, unspecified; N18.31 Chronic kidney disease, stage 3a; I50.32 Chronic diastolic (congestive) heart failure
CPT/HCPCS: 82784; 96365; 96366; J1569

== ENCOUNTER → 2025-05-04 16:44 | Outpatient (REF) | payer MEDICARE, OTHER, SELFPAY ==
[2025-05-04 17:14] LABS: Hematocrit 41.6 % (37.0-47.0); Hemoglobin 13.5 g/dL (12.0-16.0); Mean Corp Hgb Conc. 32.5 g/dL (33.0-37.0); Mean Corpuscular Volume 91.6 fL (81.0-99.0); Nucleated Red Blood Cells % 0 %; Platelet Count 226 10^3/uL (130-400); Red Cell Dist. Width 14.1 % (11.5-14.5)
[2025-05-04 17:15] LABS: Urine Character Clear (Clear)
[2025-05-04 17:49] LABS: ALT (SGPT) 34 U/L (0-35); AST (SGOT) 37 U/L (14-36); Albumin 4.3 g/dl (3.5-5.0); Alkaline Phosphatase 203 U/L (38-126); Blood Urea Nitrogen 25 mg/dl (7-17); Calcium 9.0 mg/dl (8.4-10.2); Carbon Dioxide 30 mmol/L (22-30); Chloride 100 mmol/L (98-107); Glucose 199 mg/dl (70-99); Potassium 4.4 mmol/L (3.5-5.1); Sodium 137 mmol/L (135-145); Total Protein 7.2 g/dl (6.3-8.2); eGFR 52.08
[2025-05-04 18:06] LABS: Urine Squamous Cell >20 /LPF (Few)
[2025-05-07 01:52] LABS: ds-DNA Ab, IgG Reflex To Titer 11 IU (0-24)
== END ==
LOC: REG 16:44
PROVIDERS: ATTENDING PHYSICIAN Specialist; FAMILY PHYSICIAN Student in an Organized Health Care Education/Training Program; OTHER PHYSICIAN Internal Medicine Rheumatology
DX: M32.9 Systemic lupus erythematosus, unspecified (principal); N39.0 Urinary tract infection, site not specified
CPT/HCPCS: 36415; 80053; 81003; 81015; 85025; 85652; 86160; 86225; 87086

== ENCOUNTER 2025-05-26 10:23 | Outpatient (RCR) | payer MEDICARE, OTHER, SELFPAY ==
[2025-05-26] VITALS (10 sets, daily range): BP systolic 94–161; BP diastolic 55–77
[2025-05-26 11:33] LABS: Hematocrit 39.1 % (37.0-47.0); Hemoglobin 12.4 g/dL (12.0-16.0); Mean Corp Hgb Conc. 31.7 g/dL (33.0-37.0); Mean Corpuscular Volume 90.7 fL (81.0-99.0); Platelet Count 251 10^3/uL (130-400); Red Cell Dist. Width 13.6 % (11.5-14.5)
[2025-05-26] MEDS: TYLENOL 650 MG PO (11:36)
[2025-05-26] MEDS: BENADRYL 25 MG PO (11:36)
[2025-05-26] MEDS: GAMMAGARD 50 IV (11:37)
[2025-05-26 12:04] LABS: ALT (SGPT) 25 U/L (0-35); AST (SGOT) 27 U/L (14-36); Albumin 4.0 g/dl (3.5-5.0); Alkaline Phosphatase 198 U/L (38-126); Blood Urea Nitrogen 22 mg/dl (7-17); Calcium 8.5 mg/dl (8.4-10.2); Carbon Dioxide 29 mmol/L (22-30); Chloride 101 mmol/L (98-107); Glucose 302 mg/dl (70-99); Potassium 3.8 mmol/L (3.5-5.1); Sodium 137 mmol/L (135-145); Total Protein 6.4 g/dl (6.3-8.2); eGFR 52.08
[2025-05-26] MEDS: GAMMAGARD 200 IV ×2 (12:41→14:09)
== END 2025-05-26 23:59 | disposition home or self-care (01) ==
LOC: OID 10:23
PROVIDERS: ATTENDING PHYSICIAN Allergy & Immunology
DX: D50.8 Other iron deficiency anemias (principal); D80.8 Other immunodeficiencies with predominantly antibody defects (principal); D80.3 Selective deficiency of immunoglobulin G [IgG] subclasses; I48.0 Paroxysmal atrial fibrillation; M32.9 Systemic lupus erythematosus, unspecified; D80.2 Selective deficiency of immunoglobulin A [IgA]; N18.31 Chronic kidney disease, stage 3a; I50.32 Chronic diastolic (congestive) heart failure; E27.40 Unspecified adrenocortical insufficiency
CPT/HCPCS: 80053; 82784; 85025; 96365; 96366; J1569

== ENCOUNTER 2025-06-22 10:30 | Outpatient (RCR) | payer MEDICARE, OTHER, SELFPAY ==
[2025-06-22] VITALS (10 sets, daily range): BP systolic 115–148; BP diastolic 54–82
[2025-06-22] MEDS: TYLENOL 650 MG PO (10:54)
[2025-06-22] MEDS: BENADRYL 25 MG PO (10:54)
[2025-06-22] MEDS: GAMMAGARD 50 IV (11:00)
[2025-06-22] MEDS: GAMMAGARD 200 IV ×2 (11:58→13:25)
== END 2025-06-26 23:59 | disposition home or self-care (01) ==
LOC: OID 10:30
PROVIDERS: ATTENDING PHYSICIAN Allergy & Immunology
DX: D80.8 Other immunodeficiencies with predominantly antibody defects (principal); I48.0 Paroxysmal atrial fibrillation; D80.3 Selective deficiency of immunoglobulin G [IgG] subclasses; M32.9 Systemic lupus erythematosus, unspecified; N18.31 Chronic kidney disease, stage 3a; I50.32 Chronic diastolic (congestive) heart failure; E27.40 Unspecified adrenocortical insufficiency
CPT/HCPCS: 82784; 96365; 96366; J1569

== ENCOUNTER → 2025-07-10 12:37 | Outpatient (REF) | payer MEDICARE, OTHER, SELFPAY | LOC: SDSPAT 12:37 | PROVIDERS: ATTENDING PHYSICIAN Internal Medicine Cardiovascular Disease; FAMILY PHYSICIAN Student in an Organized Health Care Education/Training Program; OTHER PHYSICIAN Internal Medicine | DX: I48.0 Paroxysmal atrial fibrillation (principal) | CPT/HCPCS: 93005 ==

== ENCOUNTER 2025-07-13 08:55 | Day surgery (SDC) | payer MEDICARE, OTHER, SELFPAY ==
[2025-07-10 12:45] VITALS: BMI 37.0
[2025-07-13 10:36] LABS: Glucose - Point of Care 190 mg/dl (70-99)
== END 2025-07-13 11:35 | disposition home or self-care (01) ==
LOC: CATH 08:55
PROVIDERS: ATTENDING PHYSICIAN Internal Medicine Cardiovascular Disease; FAMILY PHYSICIAN Student in an Organized Health Care Education/Training Program; OTHER PHYSICIAN Internal Medicine
DX: I48.0 Paroxysmal atrial fibrillation (principal); Z95.0 Presence of cardiac pacemaker; I48.92 Unspecified atrial flutter; E03.9 Hypothyroidism, unspecified; E11.40 Type 2 diabetes mellitus with diabetic neuropathy, unspecified; E66.9 Obesity, unspecified; E78.5 Hyperlipidemia, unspecified; F32.A Depression, unspecified; F41.9 Anxiety disorder, unspecified; G47.00 Insomnia, unspecified; G47.33 Obstructive sleep apnea (adult) (pediatric); I05.0 Rheumatic mitral stenosis; I11.0 Hypertensive heart disease with heart failure; I44.0 Atrioventricular block, first degree; I44.7 Left bundle-branch block, unspecified; I50.32 Chronic diastolic (congestive) heart failure; M32.9 Systemic lupus erythematosus, unspecified; M81.0 Age-related osteoporosis without current pathological fracture; Z87.440 Personal history of urinary (tract) infections; J98.4 Other disorders of lung; I69.90 Unspecified sequelae of unspecified cerebrovascular disease; Z85.820 Personal history of malignant melanoma of skin; C43.9 Malignant melanoma of skin, unspecified; Z92.21 Personal history of antineoplastic chemotherapy; Z79.01 Long term (current) use of anticoagulants; Z79.4 Long term (current) use of insulin; Z79.52 Long term (current) use of systemic steroids; Z79.84 Long term (current) use of oral hypoglycemic drugs; Z79.890 Hormone replacement therapy; Z79.899 Other long term (current) drug therapy; Z88.5 Allergy status to narcotic agent; Z88.8 Allergy status to other drugs, medicaments and biological substances; Z90.49 Acquired absence of other specified parts of digestive tract; Z90.711 Acquired absence of uterus with remaining cervical stump; Z91.048 Other nonmedicinal substance allergy status; K21.9 Gastro-esophageal reflux disease without esophagitis; G50.0 Trigeminal neuralgia
CPT/HCPCS: 82962; 92960; 93005

== ENCOUNTER 2025-07-15 18:45 | Inpatient (IN) | payer MEDICARE, OTHER, SELFPAY ==
[2025-07-15] VITALS (9 sets, daily range): BP systolic 123–175; BP diastolic 59–85; BMI 35.0; BMI 34.9
[2025-07-15 12:33] LABS: Hematocrit 34.7 % (37.0-47.0); Hemoglobin 11.1 g/dL (12.0-16.0); Mean Corp Hgb Conc. 32.0 g/dL (33.0-37.0); Mean Corpuscular Volume 91.6 fL (81.0-99.0); Nucleated Red Blood Cells % 0 %; Platelet Count 253 10^3/uL (130-400); Red Cell Dist. Width 14.1 % (11.5-14.5)
[2025-07-15 12:45] LABS: ALT (SGPT) 21 U/L (0-35); AST (SGOT) 24 U/L (14-36); Albumin 3.8 g/dl (3.5-5.0); Alkaline Phosphatase 138 U/L (38-126); Blood Urea Nitrogen 17 mg/dl (7-17); Calcium 8.9 mg/dl (8.4-10.2); Carbon Dioxide 28 mmol/L (22-30); Chloride 99 mmol/L (98-107); Glucose 305 mg/dl (70-99); Potassium 4.2 mmol/L (3.5-5.1); Sodium 133 mmol/L (135-145); Total Protein 6.6 g/dl (6.3-8.2); eGFR > 60.00
[2025-07-15 13:23] LABS: Urine Character Clear (Clear)
[2025-07-15 13:37] LABS: Urine Squamous Cell 0-2 /LPF (Few)
[2025-07-15 13:38] LABS: Urine Red Blood Cell 0-2 /HPF (0-2); Urine White Cell 16-20 /HPF (0-5)
--- NOTE | 2025-07-15 14:19 | ED.GENMED ---
History of Present Illness
<Lloyd Manriquez PA-C - Last Filed: 07/15/25 18:56>
General
Chief Complaint: Weakness
Time Seen by Provider: 07/15/25 13:56
History of Present Illness
History of Present Illness:
74-year-old female with history of COPD, A-fib, aortic stenosis, CHF, hypertension, and hyperlipidemia presents to the emergency department for evaluation of fever and weakness. She underwent an electrical cardioversion 2 days ago and felt well
after the procedure however yesterday morning developed the weakness. She also reports a dry cough. No nausea vomiting or diarrhea. Denies any dysuria or hematuria.
Past History
<Lloyd Manriquez PA-C - Last Filed: 07/15/25 18:56>
Past History
ED Past Medical History: Arrthythmia (Atrial fib), Cancer (metastatic melanoma in remission), CHF, CVA, HTN, Hypercholesterolemia, IDDM, Hypothyroidism, Psychiatric (depression) and Other (Sleep apnea uses CPAP, lupus cerebritis, PNA, chronic
pulmonary edema. Wells's esophagus, C- diff, Renal calculus, E. coli bacteremia secondary to UTI; immunodeficiency on monthly IgG infusions)
ED Past Surgical History: Cardiac (Pacemaker. TAVR), Cholecystectomy, Gynecological (Hysterectomy), Orthopedic (ORIF right ankle) and Other (Parathyroidectomy, cataracts, )
Social History
Tobacco: Non-smoker
Alcohol: None
Personal:
Living: alone
Review of Systems
<Lloyd Manriquez PA-C - Last Filed: 07/15/25 18:56>
Review of Systems
Allergies reviewed?: Yes
All Other Systems: ROS reviewed and negative except as documented in HPI and ROS
Phy Exam
<Lloyd Manriquez PA-C - Last Filed: 07/15/25 18:56>
Physical Exam
Physical Exam:
GEN: Well appearing, NAD, WDWN
HEENT: Oral mucosa moist, no scleral icterus
Cardiac: Regular rate and rhythm, no murmurs
Lung: No respiratory distress, no tachypnea, lungs clear to auscultation
Abdomen: Soft, grossly nontender
MSK: No gross deformity or injuries
Skin: Good color, no pallor or jaundice, no rashes
Neuro: AO x3, moves all extremities freely
Psych: Calm, cooperative
Sepsis
<Lloyd Manriquez PA-C - Last Filed: 07/15/25 18:56>
Sepsis Screening
Sepsis Assessment: Sepsis Ruled Out
Sepsis Screen
Sepsis Screen: Sepsis Ruled Out
Date: 07/15/25
Time: 18:56
Course
<Lloyd Manriquez PA-C - Last Filed: 07/15/25 18:56>
Orders/Labs/Results
Orders:
Orders
07/15/25 12:07
Electrocardiogram (*1) Urgent
Reason for Study: Chest Pain
EKG- Treatment ONCE
07/15/25 12:14
IV Insert/Care/Rem.- Treatment PRN
07/15/25 12:22
Complete Blood Count/With Diff Urgent
Comprehensive Metabolic Panel Urgent
Lactic Acid Q4H
Comment: ON ICE, CANCEL 2ND ORDER IF FIRST LACTIC ACID LEVEL <2
NT-proBNP Urgent
Comment: ADD ON
Blood Culture Q20M
MIKAELA Source: Blood/Venous
Specimen Description:
Comment: Urgent from separate sites. If patient screens positive for possible sepsis
07/15/25 13:00
Urinalysis Reflex To Culture Urgent
Date Specimen was Collected: 07/15/25
Time Specimen was Collected: 12:59
Urine Microscopic Reflex Cult Urgent
Urine Culture Urgent
MIKAELA Source: U
Specimen Description:
Date Specimen was Collected: 07/15/25
Time Specimen was Collected: 12:59
07/15/25 14:18
0.9% Sodium Chloride 1000 ml [Nss] 1,000 ml IV BOLUS
Acetaminophen [Tylenol] 650 mg PO NOW STA
CR Chest - 2 Views Urgent
Comment:
Reason For Exam: fever
07/15/25 14:28
COVID-19 Antigen Urgent
Source: Nasal Swab
Blood Culture Urgent
MIKAELA Source: Blood/Venous
Specimen Description:
Influenza A+B Rapid Molecular Urgent
MIKAELA Source: Nasal Swab
Specimen Description:
07/15/25 15:37
CefTRIAXone [Rocephin] 1,000 mg IV NOW STA
07/15/25 16:15
Lactic Acid Q4H
Comment: ON ICE, CANCEL 2ND ORDER IF FIRST LACTIC ACID LEVEL <2
07/15/25 17:39
Add On- LAB Routine
Tests Added?: BNP
07/15/25 17:40
Doxycycline [Vibramycin] 100 mg PO NOW STA
07/15/25 17:43
Admit/Transfer Patient As Directed
Co-Sign Provider:
Level of Care: Inpatient admission
Assign to:: Telemetry
Physician / Group: Kalani Wayne
Diagnosis: sepsis secondary to pneumonia
Reason for Telemetry: Chest Pain syndromes
Date to Stop Telemetry: 07/17/25
Time to Stop Telemetry: 11:00
Reason for Hospitalization: sepsis secondary to pneumonia
Expected length of stay greater than two midnights?: Yes
ELOS- Estimated Length of Stay in days: 3
I certify the patient meets the requirements for IP care: Yes
PRN Pain Medication Management As Directed
May give lesser potent ordered pain med per pt: Yes
preference::
Protocol:: Medication orders for pain may be administered in a
manner that supports deferring to patient preference
when the pt is:
- Requesting an ordered lesser potent pain medication.
Least to most potent pain medications are defined
as: acetaminophen < NSAID < tramadol < opioids
(morphine, oxycodone, hydromorphone).
- Requesting a lesser dose of the same medication IF
ORDERED.
- Requesting a less intrusive route of administration
if both routes are prescribed by the provider (PO <
IV).
07/15/25 17:46
Code Status As Directed
Resuscitation Status: Full Code
07/15/25 18:00
Piperacillin/Tazo 3.375 Gram [Zosyn] 3.375 gram in 50 ml IV Q6H
07/15/25 20:00
Apixaban [Eliquis] 5 mg PO ONCE@2000 ONE
07/17/25 11:00
DC Protocol for Telemetry ONCE
Abnormal Lab Results
07/15/25 07/15/25
12:22 13:00
WBC 11.9 H 10^3/uL
(4.8-10.8)
RBC 3.79 L 10^6/uL
(4.20-5.40)
Hgb 11.1 L g/dL
(12.0-16.0)
Hct 34.7 L %
(37.0-47.0)
MCHC 32.0 L g/dL
(33.0-37.0)
Absolute Neuts (auto) 9.9 H 10^3/uL
(1.4-6.5)
Absolute Lymphs (auto) 0.6 L 10^3/uL
(1.2-3.4)
Absolute Monos (auto) 1.2 H 10^3/uL
(0.1-0.6)
Neutrophils % 83.8 H %
(42.2-75.2)
Lymphocytes % 4.9 L %
(20.5-51.1)
Monocytes % 9.9 H %
(1.7-9.3)
Sodium 133 L mmol/L
(135-145)
Glucose 305 H mg/dl
(70-99)
Lactic Acid 2.2 H mmol/L
(0.7-2.0)
Alkaline Phosphatase 138 H U/L
(38-126)
Ur Occult Blood Reflex 1+ A
(Negative)
Urine Nitrite (Reflex) Positive A
(Negative)
Urine WBC (Reflex) 16-20 A /HPF
(0-5)
Urine Bacteria (Reflex) Many A
(Negative)
Urine Glucose 4+ A
(Negative)
Urine Albumin (Reflex) 1+ A
(Neg - Trace)
07/15/25 12:22
07/15/25 12:22
Vital Signs
Initial and Last Documented VS:
Initial Vital Signs
Temp Pulse Resp BP Pulse Ox
101.5 F H 108 26 150/79 91
07/15/25 12:11 07/15/25 12:11 07/15/25 12:11 07/15/25 12:11 07/15/25 12:11
Last Documented Vital Signs
Temp Pulse Resp BP Pulse Ox
99.4 F 89 30 135/69 94
07/15/25 17:19 07/15/25 18:15 07/15/25 18:15 07/15/25 18:00 07/15/25 18:00
<Yohan Dominguez MD - Last Filed: 07/15/25 16:24>
Orders/Labs/Results
Orders:
Orders
07/15/25 12:07
Electrocardiogram (*1) Urgent
Reason for Study: Chest Pain
EKG- Treatment ONCE
07/15/25 12:14
IV Insert/Care/Rem.- Treatment PRN
07/15/25 12:22
Complete Blood Count/With Diff Urgent
Comprehensive Metabolic Panel Urgent
Lactic Acid Q4H
Comment: ON ICE, CANCEL 2ND ORDER IF FIRST LACTIC ACID LEVEL <2
NT-proBNP Urgent
Comment: ADD ON
Blood Culture Q20M
MIKAELA Source: Blood/Venous
Specimen Description:
Comment: Urgent from separate sites. If patient screens positive for possible sepsis
07/15/25 13:00
Urinalysis Reflex To Culture Urgent
Date Specimen was Collected: 07/15/25
Time Specimen was Collected: 12:59
Urine Microscopic Reflex Cult Urgent
Urine Culture Urgent
MIKAELA Source: U
Specimen Description:
Date Specimen was Collected: 07/15/25
Time Specimen was Collected: 12:59
07/15/25 14:18
0.9% Sodium Chloride 1000 ml [Nss] 1,000 ml IV BOLUS
Acetaminophen [Tylenol] 650 mg PO NOW STA
CR Chest - 2 Views Urgent
Comment:
Reason For Exam: fever
07/15/25 14:28
COVID-19 Antigen Urgent
Source: Nasal Swab
Blood Culture Urgent
MIKAELA Source: Blood/Venous
Specimen Description:
Influenza A+B Rapid Molecular Urgent
MIKAELA Source: Nasal Swab
Specimen Description:
07/15/25 15:37
CefTRIAXone [Rocephin] 1,000 mg IV NOW STA
07/15/25 16:15
Lactic Acid Q4H
Comment: ON ICE, CANCEL 2ND ORDER IF FIRST LACTIC ACID LEVEL <2
07/15/25 17:39
Add On- LAB Routine
Tests Added?: BNP
07/15/25 17:40
Doxycycline [Vibramycin] 100 mg PO NOW STA
07/15/25 17:43
Admit/Transfer Patient As Directed
Co-Sign Provider:
Level of Care: Inpatient admission
Assign to:: Telemetry
Physician / Group: Kalani Wayne
Diagnosis: sepsis secondary to pneumonia
Reason for Telemetry: Chest Pain syndromes
Date to Stop Telemetry: 07/17/25
Time to Stop Telemetry: 11:00
Reason for Hospitalization: sepsis secondary to pneumonia
Expected length of stay greater than two midnights?: Yes
ELOS- Estimated Length of Stay in days: 3
I certify the patient meets the requirements for IP care: Yes
PRN Pain Medication Management As Directed
May give lesser potent ordered pain med per pt: Yes
preference::
Protocol:: Medication orders for pain may be administered in a
manner that supports deferring to patient preference
when the pt is:
- Requesting an ordered lesser potent pain medication.
Least to most potent pain medications are defined
as: acetaminophen < NSAID < tramadol < opioids
(morphine, oxycodone, hydromorphone).
- Requesting a lesser dose of the same medication IF
ORDERED.
- Requesting a less intrusive route of administration
if both routes are prescribed by the provider (PO <
IV).
07/15/25 17:46
Code Status As Directed
Resuscitation Status: Full Code
07/15/25 18:00
Piperacillin/Tazo 3.375 Gram [Zosyn] 3.375 gram in 50 ml IV Q6H
07/15/25 20:00
Apixaban [Eliquis] 5 mg PO ONCE@2000 ONE
07/17/25 11:00
DC Protocol for Telemetry ONCE
Abnormal Lab Results
07/15/25 07/15/25
12:22 13:00
WBC 11.9 H 10^3/uL
(4.8-10.8)
RBC 3.79 L 10^6/uL
(4.20-5.40)
Hgb 11.1 L g/dL
(12.0-16.0)
Hct 34.7 L %
(37.0-47.0)
MCHC 32.0 L g/dL
(33.0-37.0)
Absolute Neuts (auto) 9.9 H 10^3/uL
(1.4-6.5)
Absolute Lymphs (auto) 0.6 L 10^3/uL
(1.2-3.4)
Absolute Monos (auto) 1.2 H 10^3/uL
(0.1-0.6)
Neutrophils % 83.8 H %
(42.2-75.2)
Lymphocytes % 4.9 L %
(20.5-51.1)
Monocytes % 9.9 H %
(1.7-9.3)
Sodium 133 L mmol/L
(135-145)
Glucose 305 H mg/dl
(70-99)
Lactic Acid 2.2 H mmol/L
(0.7-2.0)
Alkaline Phosphatase 138 H U/L
(38-126)
Ur Occult Blood Reflex 1+ A
(Negative)
Urine Nitrite (Reflex) Positive A
(Negative)
Urine WBC (Reflex) 16-20 A /HPF
(0-5)
Urine Bacteria (Reflex) Many A
(Negative)
Urine Glucose 4+ A
(Negative)
Urine Albumin (Reflex) 1+ A
(Neg - Trace)
07/15/25 12:22
07/15/25 12:22
Vital Signs
Initial and Last Documented VS:
Initial Vital Signs
Temp Pulse Resp BP Pulse Ox
101.5 F H 108 26 150/79 91
07/15/25 12:11 07/15/25 12:11 07/15/25 12:11 07/15/25 12:11 07/15/25 12:11
Last Documented Vital Signs
Temp Pulse Resp BP Pulse Ox
99.4 F 89 30 135/69 94
07/15/25 17:19 07/15/25 18:15 07/15/25 18:15 07/15/25 18:00 07/15/25 18:00
<Lloyd Manriquez PA-C - Last Filed: 07/15/25 18:56>
MDM/Problems Addressed
MDM/Problems Addressed:
Hypoxia may be somewhat chronic due to history of restrictive lung disease as there is no clear pulmonary acute pathology on chest x-ray. Nevertheless she is febrile after recent procedure under sedation, urinalysis consistent with UTI however this
would not explain hypoxemia. Will admit for further management particularly given advanced age and multiple medical comorbidities
<Lloyd Manriquez PA-C - Last Filed: 07/15/25 18:56>
*Pulse Oximetry
SaO2: 91
Oxygen Mode of Delivery: Room air
Patient hypoxic: no
*Critical Care Note
Total Time (30-74mins, 75-104mins- exclusive of procedures): Not Applicable
ED Attending Note
<Lloyd Manriquez PA-C - Last Filed: 07/15/25 18:56>
-
Portions of this chart may have been created with voice recognition software.� Occasional wrong word or��sound alike� substitutions may have occurred due to the inherent limitations of voice recognition software.
<Yohan Dominguez MD - Last Filed: 07/15/25 16:24>
ED Attending Note
Patient seen and examined by attending physician: Yes
ED Attending Note:
I have seen and evaluated the patient with a uasz-he-etih encounter. I have spoken to the advance practicer provider and involved in the medical history, the physical exam, medical decision making.
Evaluation and management service: agree unless noted differently below.
Results interpretation: agree unless noted differently below.
Focused HPI: 74-year-old female with history as noted presents to the ER for shortness of breath. Of note patient had a cardioversion with Dr. Pham on Sunday. She says she woke up the next day feeling short of breath and symptoms have
progressed since then. She has had nonproductive cough as well. She says fever with a Tmax of 101 �F over the past 24 hours. Came to the ER for assessment. Aside from above symptoms she has noted some recent dysuria that she is very concerned
because she has a history of urosepsis in the past. No abdominal or flank pain reported.
Physical exam: Awake and alert, nontoxic. Hypoxic requiring 3 L nasal cannula to maintain saturation 90%. She is mildly tachycardic and tachypneic. She had a fever here. Mildly hypertensive. No significant edema in the legs. On lung
auscultation she has a faint scattered wheeze worse on the right.
Medical Decision Makin-year-old female presents with shortness of breath after recent cardioversion. She is tachycardic and tachypneic, hypoxic and febrile. Exam as above. Labs were significant for mild leukocytosis, chemistry shows
hyperglycemia with no DKA. Lactate and blood culture sent. Her urinalysis is positive for infection and she does have some urinary symptoms�will cover with antibiotics. COVID and flu negative. Suspect more likely that her clinical picture is
from aspiration pneumonitis versus pneumonia. Check chest x-ray. Anticipate admission. Low suspicion for PE, patient has been on Eliquis longstanding. No indication for emergent CT angio at this point.
Discharge Plan
Departure
Patient Disposition: Admit
Date of Disposition: 07/15/25
Time of Disposition: 17:06
Admit to: Med/Surg
Presentation/result/management discussed w/ accepting MD/DO: Hospitalist
Discharge Problem:
Acute UTI, Hypoxia
Interventions
Interventions:
*Risk Screen - Suicide Last Done: 07/15/25 14:45
*General Assessment Last Done: 07/15/25 14:45
*Neglect/Abuse Screening Last Done: 07/15/25 14:45
*ED- Fall Risk Assessment Last Done: 07/15/25 14:45
*ED COVID-19 Vaccine History Last Done: 07/15/25 14:45
*ED Influenza Vaccine History Last Done: 07/15/25 14:45
ED- Cardiac Assessment Last Done: 07/15/25 14:45
ED- Neurological Assessment Last Done: 07/15/25 14:45
ED- Pulmonary Assessment Last Done: 07/15/25 14:45
--- NOTE | 2025-07-15 14:49 | EDRN ---
OOB to Commode now to void. Pt on RA was 86-88% so placed on oxygen at 2lpm via NC.
[2025-07-15 14:52] LABS: COVID-19 Antigen Negative (Negative)
--- NOTE | 2025-07-15 14:57 | EDRN ---
Pt voided tiny immeasurable amount on commode.
--- NOTE | 2025-07-15 15:40 | EDRN ---
Michael Manriquez PA in to see pt. He brought pt cup of water to drink. Pt to have tylenol ordered for pain as well as antibiotics and will be admitted per Michael OLIVEIRA.
[2025-07-15] MEDS: ROCEPHIN 1000 MG IV (15:52)
[2025-07-15] MEDS: TYLENOL 650 MG PO (15:53)
[2025-07-15] MEDS: NSS 1000 IV (15:54)
--- NOTE | 2025-07-15 15:59 | EDRN ---
Dr. Dominguez in room w/ pt at this time. POX 88-89% on 2lpm so increased to 3lpm at this time.
--- NOTE | 2025-07-15 17:15 | HPS.HSE ---
Family Physician
-
Family Physician: Susana Melendez MD
Chief Complaint
-
weakness and fever
History of Present Illness
Ms. Debbie Humphrey is a 74 yo woman with hx atrial fibrillation s/p cardioversion 07/13/25, aortic stenosis s/p TAVR, metastatic melanoma in remission, HFpEF, SLE, DM II, chronic hypoxic resp failure presents to the ER for fever and weakness.
Patient states symptoms started evening of cardioversion. She has felt more short of breath with a non-productive cough. She has been fatigued with generalized aching. + fevers. + nausea. She has been eating and drinking ok, no diarrhea. No
urinary burning or urgency.
She lives at home with her daughter and uses a walker.
Medical History
Past Medical History
Past Medical History: Reports Arrhythmia (afib ), CHF, HTN, Hypothyroidism and IDDM
Additional Past Medical History:
Lupus cerebritis
Sjogren's
Rheumatoid arthritis
Heart block status post pacemaker
Aortic stenosis status post TAVR
IgG deficiency
TriGeminal neuralgia
Past Surgical History: Reports Other (TAVR)
Social History
Tobacco: Non-smoker
Alcohol: None
Drug: None
Personal:
Living: With Family
Employment: Retired
Family History
Family History: Not pertinent
Allergies / Home Medications
Allergies reflects when Allergies were last updated in [facility].
Home Medications with original date entered in [facility]
Allergy/Medication List:
Allergies
Allergy/AdvReac Type Severity Reaction Status Date / Time
adhesive Allergy Skin tears Verified 07/09/25 12:17
armodafinil (From Nuvigil) Allergy MAKES PT Verified 07/09/25 12:17
SUICIDAL,
Agnieszka
azathioprine sodium (From Allergy 105 FEVER Verified 07/09/25 12:17
Imuran)
gabapentin Allergy agnieszka Verified 07/09/25 12:17
Iodinated Contrast Media (IV Allergy Anaphylaxis Verified 07/09/25 12:17
Dye, Iodine Containing
Contrast )
morphine sulfate (From MS Allergy 'HALLUCINAT Verified 07/09/25 12:17
Contin) IONS'
ondansetron Allergy lost BP Verified 07/09/25 12:17
and pulse
vilazodone HCl (From Viibryd) Allergy 'MANIC' Verified 07/09/25 12:17
Home Medications
cevimeline 30 mg capsule (Evoxac) 30 mg PO BID DRY MOUTH 02/01/21
insulin glargine U-300 conc 300 unit/mL (1.5 mL) subcutaneous pen (Toujeo SoloStar U-300 Insulin) 56 unit SC DAILY Diabetes 05/15/22
mycophenolate mofetil 500 mg tablet (CellCept) 1,000 mg PO BID lupus 05/15/22
venlafaxine 150 mg capsule,extended release 24 hr (Effexor XR) 300 mg PO DAILY Mental Health/Anxiety 05/15/22
dapsone 25 mg tablet 25 mg PO BID lupus 05/17/22
carbamazepine 200 mg tablet (Tegretol) 200 mg PO BID trigeminal neuralgia 11/06/22
levothyroxine 137 mcg tablet 137 mcg PO DAILY AT 0700 Thyroid 12/04/22
trazodone 100 mg tablet 100 mg PO HS Sleep 07/12/23
ergocalciferol (vitamin D2) 1,250 mcg (50,000 unit) capsule 1,250 mcg PO CENTENO Supplement 08/22/23
insulin lispro 100 unit/mL subcutaneous pen (Humalog KwikPen (U-100) Insulin) 5 unit SC BID Diabetes 08/22/23
metoprolol tartrate 100 mg tablet 50 mg PO BID heart rate 08/22/23
apixaban 5 mg tablet (Eliquis) 5 mg PO BID Blood Clot Prevention/Tx 11/14/23
prednisone 1 mg tablet 6 mg PO DAILY Anti-Inflammatory 11/14/23
potassium chloride 20 mEq oral packet 20 meq PO MOWEFR Electrolyte Repletion 11/19/23
dapagliflozin propanediol 10 mg tablet (Farxiga) 10 mg PO DAILY Diabetes 05/05/24
calcitriol 0.5 mcg capsule 0.5 mcg PO DAILY Supplement 05/25/24
furosemide 20 mg tablet 60 mg PO DAILY Fluid Retention/Swelling 05/25/24
rosuvastatin 10 mg tablet 10 mg PO HS High Cholesterol 05/25/24
therapeutic multivitamin 1 tab PO DAILY Supplement 05/25/24
vibegron 75 mg tablet (Gemtesa) 75 mg PO DAILY Urinary Issue 05/25/24
Saccharomyces boulardii 250 mg capsule (Florastor) 250 mg PO DAILY 07/13/25
famotidine 20 mg tablet 20 mg PO HS Gastrointestinal Issue 07/15/25
psyllium 1 packet PO DAILY Constipation 07/15/25
Review of Systems
-
History Source: Patient
A 12 point ROS was completed and negative except as noted: Yes
Physical Exam
Vital Signs
Vital Signs
Temp Pulse Resp BP Pulse Ox
101.5 F H 98 21 144/68 92
07/15/25 12:11 07/15/25 16:00 07/15/25 16:00 07/15/25 16:00 07/15/25 16:00
Physical Exam
General: No Apparent Distress and Conversant
HEENT: PERRLA
Respiratory: Clear and Decreased Breath Sounds (bases); No Wheezes
Cardiac: S1/S2 and Regular Rhythm
GI: Soft and Non Tender
Musculoskeletal: No Edema
Skin: Warm and Dry; No Rash
Neuro: AO x 3
Psych: Calm
Laboratory Results
-
07/15/25 12:22
07/15/25 12:22
Laboratory Results
Lactic Acid 2.2 mmol/L (0.7-2.0) H 07/15/25 12:22
Total Bilirubin 0.7 mg/dl (0.2-1.3) 07/15/25 12:22
AST 24 U/L (14-36) 07/15/25 12:22
ALT 21 U/L (0-35) 07/15/25 12:22
Alkaline Phosphatase 138 U/L (38-126) H 07/15/25 12:22
Data Reviewed
-
Diagnostic Radiology: Report Reviewed by me
Lab Data: Labs Reviewed by me
Impression/Plan
-
Ms. Debbie Humphrey is a 74 yo woman with hx atrial fibrillation s/p cardioversion 07/13/25, aortic stenosis s/p TAVR, metastatic melanoma in remission, HFpEF, SLE, DM II, chronic hypoxic resp failure presents to the ER for fever and weakness.
Triage VS: T 101.5, P 108, RR 26, BP 150/79, SpO2 91%
LABS: WBC 11.9, HG 11.1, PLT 253, Na 133, K+ 4.2, CO2 28, BUN 17, Cr 0.9, Glucose 305, Lactate 2.2, Alk Phos 138
Sepsis suspected secondary to pneumonia - clinically patient with cough, shortness of breath and increased oxygen needs
-awaiting final chest x-ray report
-symptoms started post sedation with cardioversion - concern for possible aspiration pneumonia; With hx immunosuppression and recent procedure, will cover broadly with IV Zosyn, add on Doxycycline for atypical coverage
-Flu and Covid negative
-follow up blood cultures
-Follow up legionella/strep testing
-s/p 1L IVF in ER, awaiting repeat lactate
-hold [employer] Lasix while septic - monitor volume status closely
-hold [employer] Cellcept (for SLE) in setting of pneumonia
-patient normotensive in ER, will need stress dose steroids if becomes hypotensive
Asymptomatic pyuria
-UA with 16-20 WBC, no urinary symptoms
-possible infection would be covered by IV Zosyn, follow up final culture
HFpEF
-hold Lasix as above while septic
-daily weights, monitor volume status closely
DM II
Hyperglycemia
-patient is on concentrated insulin 56 units daily at home - will order 30 units daily here as suspect diet is different
-ISS low
-adjust insulin as needed
-holding [employer] Farxiga
SLE
-continue [employer] Prednisone, Dapsone
-[employer] T[employer] Evoxac (for dry mouth)
-hold [employer] T[employer] Cellcept in setting of infection
Atrial Fibrillation s/p recent Cardioversion 07/13/25
-patient currently in sinus rhythm
-[employer] TEND[employer] Eliquis
-[employer]NA[employer] TENDER Metoprolol
Aortic Stenosis s/p TAVR
Metastatic melanoma in remission
Hypothyroidism - [employer] T[employer] Synthroid
GERD - [employer] T[employer]ER Pepcid
HLD - [employer] TENDER Statin
Depression - [employer] T[employer]ER Venlafaxine
DVT PPx Eliquis
FULL CODE
76 minutes spent on patient care
--- NOTE | 2025-07-15 17:39 | EDRN ---
Dr. Wayne in to see pt.
--- NOTE | 2025-07-15 18:15 | EDRN ---
IV fluids flowing slowly when checked after pt's xray and in attempt to fix flow found IVF clamped. Pt stated she clamped the fluids due to she has CHF. This RN explained the need for fluids as treatment for possible sepsis.
--- NOTE | 2025-07-15 18:19 | EDRN ---
Pt OOB to commode to void at this time.
--- NOTE | 2025-07-15 18:58 | EDRN ---
Lactic #2 drawn and sent.
--- NOTE | 2025-07-15 20:00 | PTCARENOTE ---
Pt arrived to unit from ED, ambulating with x1 assist with RW. AAOx3, no complaints of pain. BP on admission 175/85, HR 105; rechecked at 2100 was 123/59, HR 82. Evening lopressor provided to pt. Pt oriented to room, call [place] in reach. Plan of
care reviewed with pt.
[2025-07-15] MEDS: MUCINEX PO (21:09)
[2025-07-15] MEDS: VIBRAMYCIN 100 MG PO (21:14)
[2025-07-15] MEDS: TEGRETOL 200 MG PO (21:14)
[2025-07-15] MEDS: DAPSONE 25 MG PO (21:14)
[2025-07-15] MEDS: ELIQUIS 5 MG PO (21:15)
[2025-07-15] MEDS: LOPRESSOR 50 MG PO (21:15)
[2025-07-15 22:20] LABS: Glucose - Point of Care 159 mg/dl (70-99)
[2025-07-15] MEDS: DESYREL 100 MG PO (22:52)
[2025-07-15] MEDS: PEPCID 20 MG PO (22:52)
[2025-07-15] MEDS: CRESTOR 10 MG PO (22:52)
[2025-07-15] MEDS: ZOSYN 50 IV (22:52)
--- NOTE | 2025-07-15 23:22 | VATNOTE ---
on rounds L hand IV was leaking and was d/c pt firmly requested to have her Port accessed. ' I look like I have good Veins but they collapse and I do not want to keep being stuck.' R SC Port accessed PCN aware
[2025-07-16] VITALS (8 sets, daily range): BP systolic 120–163; BP diastolic 63–101; PULSE 89; O2SAT 98; BMI 34.9
[2025-07-16] MEDS: ZOSYN 50 IV ×4 (04:53→22:11)
[2025-07-16 05:30] LABS: Hematocrit 32.8 % (37.0-47.0); Hemoglobin 10.1 g/dL (12.0-16.0); Mean Corp Hgb Conc. 30.8 g/dL (33.0-37.0); Mean Corpuscular Volume 95.9 fL (81.0-99.0); Nucleated Red Blood Cells % 0 %; Platelet Count 196 10^3/uL (130-400); Red Cell Dist. Width 14.0 % (11.5-14.5)
[2025-07-16 05:49] LABS: Blood Urea Nitrogen 13 mg/dl (7-17); Calcium 8.0 mg/dl (8.4-10.2); Carbon Dioxide 28 mmol/L (22-30); Chloride 106 mmol/L (98-107); Estimated Creatinine Clearance 68 ml/min; Glucose 155 mg/dl (70-99); Magnesium 1.9 mg/dl (1.6-2.3); Potassium 3.5 mmol/L (3.5-5.1); Sodium 138 mmol/L (135-145); eGFR > 60.00
[2025-07-16] MEDS: SYNTHROID PO (05:49)
[2025-07-16] MEDS: SYNTHROID 137 MCG PO (05:52)
[2025-07-16 07:55] LABS: Glucose - Point of Care 188 mg/dl (70-99)
[2025-07-16] MEDS: ROCALTROL 0.5 MCG PO (08:08)
[2025-07-16] MEDS: NOVOLOG FLEXPEN-LOW RESISTANCE 1 UNITS SC ×2 (08:08→18:01)
[2025-07-16] MEDS: TEGRETOL 200 MG PO ×2 (08:09→20:14)
[2025-07-16] MEDS: DAPSONE 25 MG PO ×2 (08:09→20:14)
[2025-07-16] MEDS: ELIQUIS 5 MG PO ×2 (08:09→20:14)
[2025-07-16] MEDS: METAMUCIL, KONSYL PO ×2 (08:09→08:21)
[2025-07-16] MEDS: DELTASONE 6 MG PO (08:09)
[2025-07-16] MEDS: FLORASTOR 250 MG PO (08:09)
[2025-07-16] MEDS: VIBRAMYCIN 100 MG PO ×2 (08:09→20:14)
[2025-07-16] MEDS: LOPRESSOR 50 MG PO ×2 (08:10→20:14)
[2025-07-16] MEDS: EFFEXOR XR 300 MG PO (08:10)
[2025-07-16] MEDS: MUCINEX 600 MG PO (08:10)
[2025-07-16] MEDS: LANTUS 0.24 UNITS SC (08:16)
[2025-07-16 09:32] LABS: Glycohemoglobin (HgbA1c) 7.4 % (4.0-5.9)
--- NOTE | 2025-07-16 09:43 | PTCARENOTE ---
A Head Greenskeeper was next to telemonitor and noticed an event of torsades on patient's monitor. asked loudly who has patient in room 451-2, floor nurse responded to Doctor, doctor informed nurse that this patient just had an event of torsades and
asked if cardiology was consulted for this patient. stated a imaging system administrator or hospitalist needed to be informed right away. Floor nurse assessed patient, patient was sitting in chair resting, asymptomatic. denies any chest pain or light
headedness. VSS. MD Wood notified and assessed patient at bedside. will continue to monitor.
[2025-07-16] MEDS: MAGNESIUM SULFATE 50 IV (10:14)
--- NOTE | 2025-07-16 10:38 | CON.CAR ---
Addendum entered and electronically signed by Tony Can MD 07/16/25 13:54:
I saw and evaluated the patient, and I provided the substantive portion of the medical decision making.
I reviewed and agree with the note by Ms Cervantes and it accurately reflects our care.
I personally performed the medical decision making of the this encounter and my assessment and plan is below:
74 y/o female (patient of Dr. 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
disease, BERNIE on CPAP, and lupus on steroids who had a cardioversion 07/13/25.
We are consulted for possible VT.
This appears to be artifact; upon review of telemetry there appears to be significant wandering in one of the leads with more consistent QRS intervals in others, this raises significant suspicion for artifact. Additionally, given the absence of
symptoms makes artifact even more likely the culprit.
OK to remain on telemetry.
No new meds or testing at this time.
Pls call with questions.
Original Note:
Consultation
Consultation Request
Date/Time Consultation Requested: 07/16/25 1002
Date/Time Consultation Performed: 07/16/25 1015
Requesting Provider: Dr. Israel Roth
Performing Provider: Debby METZ for Dr. Can
Reason for Consultation: arrhythmia
Medical History
-
Chief Complaint: SOB, fever, weakness
History of Present Illness:
74 y/o female (patient of Dr. 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
disease, BERNIE on CPAP, and lupus on steroids who had a cardioversion 07/13/25. She woke up Sunday AM and felt SOB, weak, and tired. She also had a fever of 101.7. She is diagnosed with possible UTI and PNA and has been given fluid and antibiotics.
We are consulted since arrhythmia concerning for torsades was noted on the monitor this AM. She was not symptomatic. She is in no distress at the time of my assessment.
Past Medical History
Past Medical History: Arrhythmias, CHF, GERD, HTN, Hypercholesterolemia, NIDDM, Valvular Disease and Other (as above)
Social History
Tobacco: Non-Smoker
Family History
Family History: CAD
Allergies / Home Medications
Allergy/AdvReac Type Severity Reaction Status Date / Time
adhesive Allergy Skin tears Verified 07/09/25 12:17
armodafinil (From Nuvigil) Allergy MAKES PT Verified 07/09/25 12:17
SUICIDAL,
Hiwot
azathioprine sodium (From Allergy 105 FEVER Verified 07/09/25 12:17
Imuran)
gabapentin Allergy hiwot Verified 07/09/25 12:17
Iodinated Contrast Media (IV Allergy Anaphylaxis Verified 07/09/25 12:17
Dye, Iodine Containing
Contrast )
morphine sulfate (From MS Allergy 'HALLUCINAT Verified 07/09/25 12:17
Contin) IONS'
ondansetron Allergy lost BP Verified 07/09/25 12:17
and pulse
vilazodone HCl (From Viibryd) Allergy 'MANIC' Verified 07/09/25 12:17
�Medication �Instructions �Recorded �Confirmed �Type
cevimeline 30 mg capsule (Evoxac) 30 mg PO BID DRY MOUTH 02/01/21 07/15/25 History
insulin glargine U-300 conc 300 56 unit SC DAILY Diabetes 05/15/22 07/15/25 History
unit/mL (1.5 mL) subcutaneous pen
(Toujeo SoloStar U-300 Insulin)
mycophenolate mofetil 500 mg 1,000 mg PO BID lupus 05/15/22 07/15/25 History
tablet (CellCept)
venlafaxine 150 mg 300 mg PO DAILY Mental 05/15/22 07/15/25 History
capsule,extended release 24 hr Health/Anxiety
(Effexor XR)
dapsone 25 mg tablet 25 mg PO BID lupus 05/17/22 07/15/25 History
carbamazepine 200 mg tablet 200 mg PO BID trigeminal neuralgia 11/06/22 07/15/25 History
(Tegretol)
levothyroxine 137 mcg tablet 137 mcg PO DAILY AT 0700 Thyroid 12/04/22 07/15/25 History
trazodone 100 mg tablet 100 mg PO HS Sleep 07/12/23 07/15/25 History
ergocalciferol (vitamin D2) 1,250 1,250 mcg PO CENTENO Supplement 08/22/23 07/15/25 History
mcg (50,000 unit) capsule
insulin lispro 100 unit/mL 5 unit SC BID Diabetes 08/22/23 07/15/25 History
subcutaneous pen (Humalog KwikPen
(U-100) Insulin)
metoprolol tartrate 100 mg tablet 50 mg PO BID heart rate 08/22/23 07/15/25 History
apixaban 5 mg tablet (Eliquis) 5 mg PO BID Blood Clot 11/14/23 07/15/25 History
Prevention/Tx
prednisone 1 mg tablet 6 mg PO DAILY Anti-Inflammatory 11/14/23 07/15/25 History
potassium chloride 20 mEq oral 20 meq PO MOWEFR Electrolyte 11/19/23 07/15/25 History
packet Repletion
dapagliflozin propanediol 10 mg 10 mg PO DAILY Diabetes 05/05/24 07/15/25 History
tablet (Farxiga)
calcitriol 0.5 mcg capsule 0.5 mcg PO DAILY Supplement 05/25/24 07/15/25 History
furosemide 20 mg tablet 60 mg PO DAILY Fluid 05/25/24 07/15/25 History
Retention/Swelling
rosuvastatin 10 mg tablet 10 mg PO HS High Cholesterol 05/25/24 07/15/25 History
therapeutic multivitamin 1 tab PO DAILY Supplement 05/25/24 07/15/25 History
vibegron 75 mg tablet (Gemtesa) 75 mg PO DAILY Urinary Issue 05/25/24 07/15/25 History
Saccharomyces boulardii 250 mg 250 mg PO DAILY Supplement 07/13/25 07/15/25 History
capsule (Florastor)
famotidine 20 mg tablet 20 mg PO HS Gastrointestinal Issue 07/15/25 07/15/25 History
psyllium 1 packet PO DAILY Constipation 07/15/25 07/15/25 History
Review of Systems
-
History Source: Patient
All other systems: Negative unless noted
Constitutional: Fever
Respiratory: Trouble Breathing
Neurological: Weakness
Physical Exam
Vital Signs
Temp Pulse Resp BP Pulse Ox
98.5 F 91 20 138/71 97
07/16/25 07:00 07/16/25 09:44 07/16/25 07:00 07/16/25 09:44 07/16/25 07:00
Lab Results
07/16/25 05:05
07/16/25 05:05
Bgo-M-Cplmvnkojjq Pept 3260 pg/ml 07/15/25 12:22
Physical Exam
General: Well Developed, Well Nourished and No Apparent Distress
HEENT: Normocephalic and Anicteric
Respiratory: Other (coarse right base, on O2 by NC)
Cardiac: Regular Rhythm
Skin: Warm and Dry
Neuro: AO x 3
Psych: Calm
Impression / Plan
-
Sepsis, related to PNA and possible UTI:
-on IV abx
-management per primary team
-did receive fluids and lasix held- would resume usual lasix when okay with primary team, since weight is up and she feels bloated
Arrhythmia:
-tele was initially concerning for torsades in a single lead. But on closer review, it appears to be artifact. Reviewed with EP. Also, patient sounds to have been OOB to chair and brushing teeth around that time in discussion with patient/nursing.
She had no dizziness/syncope.
PAF:
-stable in SR s/p CV
-continue metoprolol and Eliquis
-follow telemetry
HFpEF: chronic
-Echo 12/02/24: Normal biventricular size and systolic function without regional wall motion abnormality. Moderate mitral stenosis, mean gradient 7 mmHg. S/P TAVR, apically displaced, mean gradient 22 mmHg, mild AI. Estimated PASP 53 mmHg.
-as above, resume lasix as soon as okay from infectious standpoint as weight is up a bit and shes feeling bloated
s/p TAVR:
-follow over time by echo
PPM:
-follow in device clinic
HTN:
-stable
-continue meds and monitor
Data Reviewed
-
EKG: Tracing Personally Visualized and interpreted (SR wth 1st degree AVB, LBBB 89 BPM)
Radiology: Report Reviewed by me (CXR: No acute disease of the chest. Moderate elevation of the right hemidiaphragm. Stable)
Medical Tests (Nuc Med, Echo etc): Report Reviewed by me (echo as noted)
Labs: Labs Reviewed by me
[2025-07-16 11:14] LABS: Glucose - Point of Care 212 mg/dl (70-99)
--- NOTE | 2025-07-16 11:44 | W.PN.HOSP.TC ---
Today's Communication/Plan
-
Assessment / Plan
Assessment / Plan
NAD
Scleral Anicteric
MMM, noted to
No JVD
Coarse right base
RRR, S1/S2
Soft, NT, ND, BS+
Warm, Dry
AAOx3
Acute hypoxemic respiratory failure heart rate at documented SpO2 of 87% on room air
Secondary to pneumonia
Flu neg, Covid neg
Legionella/Strep neg
Wean O2 as tolerated
Incentive spirometer
Acapella
Sepsis secondary pneumonia with a lactate of 2.2
Lactate cleared
IVAtb
Follow up on bcx
IDDM
Accu checks
SSI
Long and Short acting insulin
BG 140-180
CC Diet
Hypothyroid
Continue Levothyroxine
SLE
Continue BUCCARO Prednisone, Dapsone
Evoxac (for dry mouth)
Hold BUCCARO Cellcept in setting of infection
Atrial Fibrillation s/p recent Cardioversion 07/13/25, paroxysmal
Eliquis
Metoprolol
?Torsaddes on Tele, asymptomatic
2g mag
Cards consulted
Anticipated Discharge: 24 - 48 hours
Subjective/Interval History
-
Date of Service: July 16, 2025
seen and examined. no new complaints. no acute overnight events
Objective Data
-
Labs:
Laboratory Results
07/16/25
05:05
WBC 8.2
Hgb 10.1 L
Hct 32.8 L
Plt Count 196 D
Sodium 138
Potassium 3.5
Chloride 106
Carbon Dioxide 28
BUN 13
Creatinine 0.8
Glucose 155 H
Calcium 8.0 L
Vital Signs:
Vital Signs
Temp Pulse Resp BP Pulse Ox
98.3 F 90 20 141/70 96
07/16/25 11:06 07/16/25 11:06 07/16/25 11:06 07/16/25 11:06 07/16/25 11:06
I&O
07/15/25 07/16/25 07/17/25
06:59 06:59 06:59
Intake Total 120 / 120
Balance 120 / 120
[2025-07-16] MEDS: NOVOLOG FLEXPEN-LOW RESISTANCE 2 UNITS SC (13:04)
--- NOTE | 2025-07-16 14:44 | CM ---
Initial assessment completed. Patient is a 74 yo woman with hx atrial fibrillation s/p cardioversion 07/13/25, aortic stenosis s/p TAVR, metastatic melanoma in remission, HFpEF, SLE, DM II, chronic hypoxic resp failure presents to the ER for fever
and weakness.
Patient resides w/ daughter in a single story home, 2 steps to enter. Patient is independent w/ ambulation w/ a RW. [facility] hx a few times, [facility] hx last year. Current w/ OP PT for balance. Additional commode, shower chair in the home.
Address, point of contact and insurance verified
PCP: Susana Mleendez
Pharmacy: [facility]
Therapy evaluated patient, recommending resumption of OP PT
Plan: Home, resume OP PT
[2025-07-16 15:51] LABS: Glucose - Point of Care 158 mg/dl (70-99)
[2025-07-16] MEDS: TYLENOL 650 MG PO (15:52)
[2025-07-16] MEDS: MUCINEX PO ×2 (20:14→20:16)
[2025-07-16 21:07] LABS: Glucose - Point of Care 146 mg/dl (70-99)
[2025-07-16] MEDS: DESYREL 100 MG PO (22:11)
[2025-07-16] MEDS: PEPCID 20 MG PO (22:11)
[2025-07-16] MEDS: CRESTOR 10 MG PO (22:11)
[2025-07-17] VITALS (7 sets, daily range): BP systolic 111–162; BP diastolic 56–91; PULSE 105; O2SAT 96; BMI 35.2
[2025-07-17] MEDS: ZOSYN 50 IV ×4 (03:46→22:38)
[2025-07-17] MEDS: SYNTHROID 137 MCG PO (06:25)
[2025-07-17] MEDS: ROCALTROL 0.5 MCG PO (07:29)
[2025-07-17] MEDS: TEGRETOL 200 MG PO ×2 (07:29→19:49)
[2025-07-17] MEDS: DELTASONE 6 MG PO (07:29)
[2025-07-17] MEDS: DAPSONE 25 MG PO ×2 (07:29→19:49)
[2025-07-17] MEDS: EFFEXOR XR 300 MG PO (07:29)
[2025-07-17] MEDS: MUCINEX 600 MG PO ×2 (07:30→19:49)
[2025-07-17] MEDS: VIBRAMYCIN 100 MG PO ×2 (07:30→19:49)
[2025-07-17] MEDS: FLORASTOR 250 MG PO (07:30)
[2025-07-17] MEDS: ELIQUIS 5 MG PO ×2 (07:30→19:49)
[2025-07-17] MEDS: LOPRESSOR 50 MG PO ×2 (07:31→19:49)
[2025-07-17] MEDS: LANTUS 0.24 UNITS SC (07:37)
[2025-07-17 07:38] LABS: Glucose - Point of Care 142 mg/dl (70-99)
[2025-07-17] MEDS: NOVOLOG FLEXPEN-LOW RESISTANCE SC ×2 (07:41→17:20)
[2025-07-17] MEDS: METAMUCIL, KONSYL PO (07:46)
--- NOTE | 2025-07-17 11:15 | W.PN.HOSP.TC ---
Today's Communication/Plan
-
Assessment / Plan
Assessment / Plan
NAD
Scleral Anicteric
MMM, noted to
No JVD
Coarse right base
RRR, S1/S2
Soft, NT, ND, BS+
Warm, Dry
AAOx3
Acute hypoxemic respiratory failure heart rate at documented SpO2 of 87% on room air
Secondary to pneumonia
Flu neg, Covid neg
Legionella/Strep neg
Wean O2 as tolerated
Incentive spirometer
Acapella
Sepsis secondary pneumonia with a lactate of 2.2
Lactate cleared
IVAtb zosyn/doxy
Follow up on bcx
IDDM
Accu checks
SSI
Long and Short acting insulin
BG 140-180
CC Diet
Hypothyroid
Continue Levothyroxine
SLE
Continue SHIPPING ASSISTANT Prednisone, Dapsone
Evoxac (for dry mouth)
Hold SHIPPING ASSISTANT Cellcept in setting of infection
Atrial Fibrillation s/p recent Cardioversion 07/13/25, paroxysmal
Eliquis
Metoprolol
?Torsades on Tele, asymptomatic, this only became concerning as a cardioloogist passing by the telemonitors told the nurse it looks like the patient is in torsades and then walked off. not sure who that freight sales broker was.
cards believed that the tele findings are consistent with artifact then true torsades/vt and was asymptomatic
Anticipated Discharge: 24 - 48 hours
Subjective/Interval History
-
Date of Service: July 17, 2025
seen and examined. remians sob.
states had a difficult night with breathing
Objective Data
-
Vital Signs:
Vital Signs
Temp Pulse Resp BP Pulse Ox
98.8 F 88 18 138/69 96
07/17/25 07:13 07/17/25 07:31 07/17/25 07:13 07/17/25 07:31 07/17/25 07:13
I&O
07/16/25 07/17/25 07/18/25
06:59 06:59 06:59
Intake Total 120 / 120 2380 / 2380
Balance 120 / 120 2380 / 2380
[2025-07-17 11:49] LABS: Glucose - Point of Care 205 mg/dl (70-99)
[2025-07-17] MEDS: NOVOLOG FLEXPEN-LOW RESISTANCE 2 UNITS SC (12:38)
--- NOTE | 2025-07-17 14:08 | PN.CDI ---
CDI
- -
CDI:
Physician Documentation Request
Admit Date: 07/15/25 18:45
Dear Doctor Gonzalez,
Clinical Indicators:
Patient admitted with sepsis secondary to pneumonia.
07/15 H& P, '-symptoms started post sedation with cardioversion - concern for possible aspiration pneumonia'
07/17 PN, '...Secondary to pneumonia Flu neg, Covid neg Legionella/Strep neg'
IV antibiotic selections: Ceftriaxone, Zosyn
Based on the above, could you clarify the suspected or likely type of pneumonia you are treating (recognizing the specific organism may not be known)?
Aspiration Pneumonia
Gram Negative Pneumonia
Other organism - specify known or suspected type
Unable to determine
Use of terms such as suspected, likely, concern for, or probable (associated with a specific diagnosis that is being evaluated, monitored, or treated as if it exists) are acceptable and can be coded in the inpatient setting, when documented at the
time of discharge.
Thank you,
BEBO Medina RN
CDI Specialist
available via tiger text
Please use your independent medical judgment in providing your response.
[2025-07-17 17:08] LABS: Glucose - Point of Care 147 mg/dl (70-99)
[2025-07-17 20:41] LABS: Glucose - Point of Care 205 mg/dl (70-99)
[2025-07-17] MEDS: TYLENOL 650 MG PO (22:37)
[2025-07-17] MEDS: DESYREL 100 MG PO (22:37)
[2025-07-17] MEDS: PEPCID 20 MG PO (22:37)
[2025-07-17] MEDS: CRESTOR 10 MG PO (22:37)
[2025-07-18 03:02] VITALS: BP 143/71
[2025-07-18] MEDS: ZOSYN 50 IV ×4 (05:04→22:37)
[2025-07-18] MEDS: SYNTHROID 137 MCG PO (05:04)
[2025-07-18 06:00] VITALS: BMI 35.3
[2025-07-18 07:08] VITALS: BP 117/50
[2025-07-18] MEDS: DESENEX/MITRAZOL/ZEASORB 1 APPLIC TOPICAL ×2 (08:21→20:05)
[2025-07-18] MEDS: TEGRETOL 200 MG PO ×2 (08:21→20:07)
[2025-07-18] MEDS: EFFEXOR XR 300 MG PO (08:21)
[2025-07-18] MEDS: DAPSONE 25 MG PO ×2 (08:22→20:06)
[2025-07-18] MEDS: ROCALTROL 0.5 MCG PO (08:22)
[2025-07-18 08:23] LABS: Glucose - Point of Care 138 mg/dl (70-99)
[2025-07-18] MEDS: LOPRESSOR 50 MG PO ×2 (08:23→20:06)
[2025-07-18] MEDS: VIBRAMYCIN 100 MG PO ×2 (08:24→20:07)
[2025-07-18] MEDS: NOVOLOG FLEXPEN-LOW RESISTANCE SC (08:25)
[2025-07-18] MEDS: DELTASONE 6 MG PO (08:25)
[2025-07-18] MEDS: FLORASTOR 250 MG PO (08:26)
[2025-07-18] MEDS: ELIQUIS 5 MG PO ×2 (08:26→20:06)
[2025-07-18] MEDS: METAMUCIL, KONSYL PO (08:27)
[2025-07-18] MEDS: MUCINEX 600 MG PO ×2 (08:27→20:06)
[2025-07-18] MEDS: LANTUS 0.24 UNITS SC (08:27)
[2025-07-18 11:09] VITALS: BP 145/78
[2025-07-18 11:57] LABS: Glucose - Point of Care 259 mg/dl (70-99)
--- NOTE | 2025-07-18 12:25 | W.PN.HOSP.TC ---
Addendum entered and electronically signed by Israel Roth MD 07/18/25 14:28:
Unable to determine type of pneumonia
Original Note:
Today's Communication/Plan
-
Assessment / Plan
Assessment / Plan
NAD
Scleral Anicteric
MMM, noted to
No JVD
Coarse right base
RRR, S1/S2
Soft, NT, ND, BS+
Warm, Dry
AAOx3
Acute hypoxemic respiratory failure heart rate at documented SpO2 of 87% on room air
-Chronic nocturnal hypoxemia at home requiring o2 at night only
Secondary to pneumonia
Flu neg, Covid neg
Legionella/Strep neg
Wean O2 as tolerated
Incentive spirometer
Acapella
Sepsis secondary pneumonia with a lactate of 2.2
Lactate cleared
IVAtb zosyn/doxy
Follow up on bcx
IDDM
Accu checks
SSI
Long and Short acting insulin
BG 140-180
CC Diet
Hypothyroid
Continue Levothyroxine
SLE
Continue SURFBOARD DESIGNER Prednisone, Dapsone
Evoxac (for dry mouth)
Hold SURFBOARD DESIGNER Cellcept in setting of infection
Atrial Fibrillation s/p recent Cardioversion 07/13/25, paroxysmal
Eliquis
Metoprolol
?Torsades on Tele, asymptomatic, this only became concerning as a cardioloogist passing by the telemonitors told the nurse it looks like the patient is in torsades and then walked off. not sure who that therapeutic dietitian was.
cards believed that the tele findings are consistent with artifact then true torsades/vt and was asymptomatic
Anticipated Discharge: 24 - 48 hours
Subjective/Interval History
-
Date of Service: July 18, 2025
seen and examind. no new complaints. no acute ovenright events
Objective Data
-
Vital Signs:
Vital Signs
Temp Pulse Resp BP Pulse Ox
98.2 F 97 20 145/78 92
07/18/25 11:09 07/18/25 11:09 07/18/25 11:09 07/18/25 11:09 07/18/25 11:09
I&O
07/17/25 07/18/25 07/19/25
06:59 06:59 06:59
Intake Total 2380 / 2380 490 / 490
Balance 2380 / 2380 490 / 490
[2025-07-18] MEDS: LASIX 60 MG PO (12:55)
[2025-07-18] MEDS: NOVOLOG FLEXPEN-LOW RESISTANCE 3 UNITS SC (12:57)
[2025-07-18 15:17] VITALS: BP 124/73
[2025-07-18 16:29] LABS: Glucose - Point of Care 167 mg/dl (70-99)
[2025-07-18] MEDS: NOVOLOG FLEXPEN-LOW RESISTANCE 1 UNITS SC (16:35)
[2025-07-18 19:19] VITALS: BP 139/64
[2025-07-18 22:01] LABS: Glucose - Point of Care 183 mg/dl (70-99)
[2025-07-18] MEDS: PEPCID 20 MG PO (22:37)
[2025-07-18] MEDS: DESYREL 100 MG PO (22:37)
[2025-07-18] MEDS: CRESTOR 10 MG PO (22:37)
[2025-07-18] MEDS: TYLENOL 650 MG PO (22:41)
[2025-07-18 23:33] VITALS: BP 146/69
[2025-07-19 03:21] VITALS: BP 133/65
[2025-07-19 04:20] VITALS: BMI 34.8
[2025-07-19] MEDS: SYNTHROID 137 MCG PO (05:08)
[2025-07-19] MEDS: ZOSYN 50 IV (05:08)
[2025-07-19 05:34] LABS: Blood Urea Nitrogen 23 mg/dl (7-17); Calcium 8.6 mg/dl (8.4-10.2); Carbon Dioxide 30 mmol/L (22-30); Chloride 101 mmol/L (98-107); Estimated Creatinine Clearance 61 ml/min; Glucose 86 mg/dl (70-99); Potassium 3.4 mmol/L (3.5-5.1); Sodium 134 mmol/L (135-145); eGFR > 60.00
[2025-07-19 05:35] LABS: Hematocrit 31.6 % (37.0-47.0); Hemoglobin 9.8 g/dL (12.0-16.0); Mean Corp Hgb Conc. 31.0 g/dL (33.0-37.0); Mean Corpuscular Volume 92.9 fL (81.0-99.0); Platelet Count 270 10^3/uL (130-400); Red Cell Dist. Width 13.6 % (11.5-14.5)
[2025-07-19 08:00] VITALS: BP 108/65
[2025-07-19 08:22] LABS: Glucose - Point of Care 113 mg/dl (70-99)
--- NOTE | 2025-07-19 08:26 | W.PN.HOSP.TC ---
Addendum entered and electronically signed by Israel Roth MD 07/19/25 12:59:
home o2 assessment - 84%
Original Note:
Today's Communication/Plan
-
Assessment / Plan
Assessment / Plan
NAD
Scleral Anicteric
MMM, noted to
No JVD
Coarse right base
RRR, S1/S2
Soft, NT, ND, BS+
Warm, Dry
AAOx3
Acute hypoxemic respiratory failure heart rate at documented SpO2 of 87% on room air
-Chronic nocturnal hypoxemia at home requiring o2 at night only
Secondary to pneumonia
Flu neg, Covid neg
Legionella/Strep neg
Wean O2 as tolerated
Incentive spirometer
Acapella
Sepsis secondary pneumonia with a lactate of 2.2
Lactate cleared
Will change to augmentin?unsyn
Follow up on bcx
Hyponatremia
Encourage po intake
Hypokalemia
Replete prn
IDDM
Accu checks
SSI
Long and Short acting insulin
BG 140-180
CC Diet
Hypothyroid
Continue Levothyroxine
SLE
Continue SUPERVISING BROKER Prednisone, Dapsone
Evoxac (for dry mouth)
Hold SUPERVISING BROKER Cellcept in setting of infection
Atrial Fibrillation s/p recent Cardioversion 07/13/25, paroxysmal
Eliquis
Metoprolol
?Torsades on Tele, asymptomatic, this only became concerning as a cardioloogist passing by the telemonitors told the nurse it looks like the patient is in torsades and then walked off. not sure who that pocketed spring assembler was.
cards believed that the tele findings are consistent with artifact then true torsades/vt and was asymptomatic
HFpEF, compensated
Resumed oral lasix
Anticipated Discharge: 24 - 48 hours
Subjective/Interval History
-
Date of Service: July 19, 2025
seen and examined. no new comlaints. no acute ovenright eventgs
Objective Data
-
Labs:
Laboratory Results
07/19/25
04:42
WBC 6.5
Hgb 9.8 L
Hct 31.6 L
Plt Count 270 D
Sodium 134 L
Potassium 3.4 L
Chloride 101
Carbon Dioxide 30
BUN 23 H
Creatinine 0.9
Glucose 86
Calcium 8.6
Vital Signs:
Vital Signs
Temp Pulse Resp BP Pulse Ox
97.7 F 79 16 133/65 96
07/19/25 03:21 07/19/25 03:21 07/19/25 03:21 07/19/25 03:21 07/19/25 03:21
I&O
07/18/25 07/19/25 07/20/25
06:59 06:59 06:59
Intake Total 490 / 490 1290 / 1290
Balance 490 / 490 1290 / 1290
[2025-07-19] MEDS: NOVOLOG FLEXPEN-LOW RESISTANCE SC (08:29)
[2025-07-19] MEDS: EFFEXOR XR 300 MG PO (08:31)
[2025-07-19] MEDS: LOPRESSOR 50 MG PO ×2 (08:31→19:41)
[2025-07-19] MEDS: LASIX 60 MG PO (08:31)
[2025-07-19] MEDS: ROCALTROL 0.5 MCG PO (08:32)
[2025-07-19] MEDS: TEGRETOL 200 MG PO ×2 (08:32→19:41)
[2025-07-19] MEDS: VIBRAMYCIN 100 MG PO (08:32)
[2025-07-19] MEDS: METAMUCIL, KONSYL PO (08:32)
[2025-07-19] MEDS: MUCINEX 600 MG PO ×2 (08:32→19:40)
[2025-07-19] MEDS: DELTASONE 6 MG PO (08:33)
[2025-07-19] MEDS: DESENEX/MITRAZOL/ZEASORB 1 APPLIC TOPICAL ×2 (08:33→19:40)
[2025-07-19] MEDS: ELIQUIS 5 MG PO ×2 (08:33→19:41)
[2025-07-19] MEDS: DAPSONE 25 MG PO ×2 (08:33→19:40)
[2025-07-19] MEDS: FLORASTOR 250 MG PO (08:34)
[2025-07-19] MEDS: LANTUS 0.24 UNITS SC (08:34)
[2025-07-19] MEDS: KCL 40 MEQ PO ×2 (08:43→12:53)
[2025-07-19] MEDS: UNASYN IV ×3 (09:09→22:30)
[2025-07-19 12:00] VITALS: BP 123/64
[2025-07-19 12:31] LABS: Glucose - Point of Care 210 mg/dl (70-99)
[2025-07-19] MEDS: NOVOLOG FLEXPEN-LOW RESISTANCE 2 UNITS SC ×2 (12:54→17:46)
[2025-07-19 16:00] VITALS: BP 148/76
[2025-07-19 17:46] LABS: Glucose - Point of Care 215 mg/dl (70-99)
[2025-07-19 19:34] VITALS: BP 138/71
[2025-07-19 21:39] LABS: Glucose - Point of Care 193 mg/dl (70-99)
[2025-07-19] MEDS: PEPCID 20 MG PO (22:30)
[2025-07-19] MEDS: CRESTOR 10 MG PO (22:30)
[2025-07-19] MEDS: DESYREL 100 MG PO (22:30)
[2025-07-19] MEDS: TYLENOL 650 MG PO (22:37)
[2025-07-19 23:20] VITALS: BP 135/72
[2025-07-20 03:46] VITALS: BP 130/52
[2025-07-20 04:50] VITALS: BMI 34.8
[2025-07-20] MEDS: UNASYN IV ×4 (04:57→21:06)
[2025-07-20] MEDS: SYNTHROID 137 MCG PO (05:00)
[2025-07-20 05:41] LABS: Hematocrit 32.0 % (37.0-47.0); Hemoglobin 10.0 g/dL (12.0-16.0); Mean Corp Hgb Conc. 31.3 g/dL (33.0-37.0); Mean Corpuscular Volume 94.1 fL (81.0-99.0); Platelet Count 268 10^3/uL (130-400); Red Cell Dist. Width 13.6 % (11.5-14.5)
[2025-07-20 06:03] LABS: Blood Urea Nitrogen 23 mg/dl (7-17); Calcium 8.2 mg/dl (8.4-10.2); Carbon Dioxide 32 mmol/L (22-30); Chloride 104 mmol/L (98-107); Estimated Creatinine Clearance 68 ml/min; Glucose 75 mg/dl (70-99); Potassium 3.5 mmol/L (3.5-5.1); Sodium 137 mmol/L (135-145); eGFR > 60.00
[2025-07-20 07:06] VITALS: BP 146/76
[2025-07-20 08:19] LABS: Glucose - Point of Care 97 mg/dl (70-99)
[2025-07-20] MEDS: LOPRESSOR 50 MG PO ×2 (08:56→21:01)
[2025-07-20] MEDS: MUCINEX 600 MG PO ×2 (08:56→20:59)
[2025-07-20] MEDS: EFFEXOR XR 300 MG PO (08:56)
[2025-07-20] MEDS: ELIQUIS 5 MG PO ×2 (08:57→21:00)
[2025-07-20] MEDS: TEGRETOL 200 MG PO ×2 (08:57→21:05)
[2025-07-20] MEDS: LASIX 60 MG PO (08:57)
[2025-07-20] MEDS: DELTASONE 6 MG PO (09:00)
[2025-07-20] MEDS: DESENEX/MITRAZOL/ZEASORB 1 APPLIC TOPICAL ×2 (09:00→21:06)
[2025-07-20] MEDS: METAMUCIL, KONSYL 1 PACKET PO (09:02)
[2025-07-20] MEDS: FLORASTOR 250 MG PO (09:05)
[2025-07-20] MEDS: ROCALTROL 0.5 MCG PO (09:05)
[2025-07-20] MEDS: NOVOLOG FLEXPEN-LOW RESISTANCE SC ×2 (09:06→17:41)
[2025-07-20] MEDS: DAPSONE 25 MG PO ×2 (09:06→21:00)
[2025-07-20] MEDS: LANTUS 0.24 UNITS SC (09:38)
[2025-07-20 11:00] VITALS: BP 150/77
[2025-07-20 12:02] LABS: Glucose - Point of Care 234 mg/dl (70-99)
[2025-07-20 12:08] VITALS: BP 150/77; PULSE 82; O2SAT 99
[2025-07-20] MEDS: TYLENOL 650 MG PO (12:26)
[2025-07-20] MEDS: NOVOLOG FLEXPEN-LOW RESISTANCE 2 UNITS SC (12:28)
--- NOTE | 2025-07-20 14:53 | W.PN.HOSP.TC ---
Today's Communication/Plan
-
CT chest
DC planning
Home O2 eval
Assessment / Plan
Assessment / Plan
Acute hypoxemic respiratory failure heart rate at documented SpO2 of 84% on room air
Chronic nocturnal hypoxemia at home requiring o2 at night only-patient attributes to sleep apnea
Unclear etiology for hypoxia.
Chest x-ray without evidence of pneumonia.
There could be possibility of aspiration pneumonitis as her symptoms started next day after cardioversion. She had new cough and weakness with fevers.
Continue with antibiotics for aspiration pneumonia/pneumonitis
Flu neg, Covid neg
Legionella/Strep neg
Wean O2 as tolerated
In view of no clear cause of hypoxia based on current available data we will get a CT of the chest for further evaluation.
Home o2 eval
Consider pulm eval
Doubt PE without CP and on DOAC
Sepsis suspected sec to possible pneumonia with a lactate of 2.2
Lactate cleared
Normalized wbc
cw abx
Follow up on bcx
Hyponatremia
Normalized
Hypokalemia
Replete prn
IDDM
Accu checks
SSI
Long and Short acting insulin
BG 140-180
CC Diet
Hypothyroid
Continue Levothyroxine
SLE
Continue HARDWOOD FINISHER Prednisone, Dapsone
Evoxac (for dry mouth)
Hold HARDWOOD FINISHER Cellcept in setting of infection
Atrial Fibrillation s/p recent Cardioversion 07/13/25, paroxysmal
Eliquis
Metoprolol
?Torsades on Tele, asymptomatic, this only became concerning as a cardioloogist passing by the telemonitors told the nurse it looks like the patient is in torsades and then walked off. not sure who that freezing machine operator was.
cards believed that the tele findings are consistent with artifact then true torsades/vt and was asymptomatic
HFpEF, compensated
Resumed oral lasix
Anticipated Discharge: Within 24 hours
Subjective/Interval History
-
Date of Service: July 20, 2025
Still with shortness of breath minimal exertion.
Currently hypoxic with exertion and during the daytime.
She uses oxygen during the night in lieu of CPAP. Denies any primary lung issues or hypoxia related to primary lung issues. She has lupus but no history of lung involvement.
Denies any chest pain or palpitation.
Dry cough remains.
Objective Data
-
Labs:
Laboratory Results
07/20/25
05:03
WBC 5.7
Hgb 10.0 L
Hct 32.0 L
Plt Count 268
Sodium 137
Potassium 3.5
Chloride 104
Carbon Dioxide 32 H
BUN 23 H
Creatinine 0.8
Glucose 75
Calcium 8.2 L
Vital Signs:
Vital Signs
Temp Pulse Resp BP Pulse Ox
97.9 F 84 12 150/77 97
07/20/25 11:00 07/20/25 11:00 07/20/25 11:00 07/20/25 11:00 07/20/25 11:00
I&O
07/19/25 07/20/25 07/21/25
06:59 06:59 06:59
Intake Total 1290 / 1290 1360 / 1360
Balance 1290 / 1290 1360 / 1360
Physical Exam
-
General: Comfortable
Respiratory: Clear to Auscultation and Non Labored Respirations; Negative Wheezes, Crackles or Accessory Resp Muscle Use
Cardiac: Regular Rhythm and S1/S2; Negative Tachycardic
Neuro: AO x 3
Psych: Calm; Negative Confused
[2025-07-20 15:00] VITALS: BP 137/72
--- NOTE | 2025-07-20 15:34 | CM ---
Chart reviewed. Home O2 eval completed yesterday. O2 needs at d/c (3L). Patient currently uses O2 at night only.
Therapy rec resumption of OP PT. Patient was going to [facility] in [place]. Will need OP PT script at d/c.
CM will review who patient has O2 supplied through and request tanks prior to d/c
Plan: Home, resume OP PT
[2025-07-20 17:28] LABS: Glucose - Point of Care 148 mg/dl (70-99)
[2025-07-20] MEDS: PEPCID 20 MG PO (21:00)
[2025-07-20] MEDS: CRESTOR 10 MG PO (21:00)
[2025-07-20] MEDS: DESYREL 100 MG PO (21:00)
[2025-07-20 21:41] LABS: Glucose - Point of Care 155 mg/dl (70-99)
[2025-07-20 23:32] VITALS: BP 161/79
[2025-07-21] MEDS: UNASYN IV ×2 (03:39→09:31)
[2025-07-21 05:26] LABS: Hematocrit 32.6 % (37.0-47.0); Hemoglobin 10.3 g/dL (12.0-16.0); Mean Corp Hgb Conc. 31.6 g/dL (33.0-37.0); Mean Corpuscular Volume 90.6 fL (81.0-99.0); Platelet Count 285 10^3/uL (130-400); Red Cell Dist. Width 13.6 % (11.5-14.5)
[2025-07-21 05:36] LABS: Blood Urea Nitrogen 26 mg/dl (7-17); Calcium 8.0 mg/dl (8.4-10.2); Carbon Dioxide 33 mmol/L (22-30); Chloride 103 mmol/L (98-107); Estimated Creatinine Clearance 61 ml/min; Glucose 74 mg/dl (70-99); Potassium 3.8 mmol/L (3.5-5.1); Sodium 138 mmol/L (135-145); eGFR > 60.00
[2025-07-21 05:42] VITALS: BMI 34.5
[2025-07-21] MEDS: SYNTHROID 137 MCG PO (05:54)
[2025-07-21 08:04] VITALS: BP 99/68
[2025-07-21 08:36] LABS: Glucose - Point of Care 94 mg/dl (70-99)
[2025-07-21] MEDS: NOVOLOG FLEXPEN-LOW RESISTANCE SC ×2 (08:49→16:37)
[2025-07-21] MEDS: ROCALTROL 0.5 MCG PO (08:51)
[2025-07-21] MEDS: TYLENOL 650 MG PO ×2 (08:52→21:15)
[2025-07-21] MEDS: DAPSONE 25 MG PO ×2 (08:53→21:04)
[2025-07-21] MEDS: TEGRETOL 200 MG PO ×2 (08:53→21:04)
[2025-07-21] MEDS: MUCINEX 600 MG PO ×2 (08:53→21:04)
[2025-07-21] MEDS: DELTASONE 6 MG PO (08:53)
[2025-07-21] MEDS: EFFEXOR XR 300 MG PO (08:54)
[2025-07-21] MEDS: LANTUS 0.24 UNITS SC (08:55)
[2025-07-21] MEDS: ELIQUIS 5 MG PO ×2 (08:55→21:04)
[2025-07-21] MEDS: FLORASTOR 250 MG PO (08:55)
[2025-07-21] MEDS: METAMUCIL, KONSYL PO (08:56)
[2025-07-21] MEDS: DESENEX/MITRAZOL/ZEASORB 1 APPLIC TOPICAL ×2 (08:56→21:05)
[2025-07-21] MEDS: LASIX 60 MG PO (09:30)
[2025-07-21] MEDS: LOPRESSOR 50 MG PO ×2 (09:30→21:04)
--- NOTE | 2025-07-21 11:43 | W.PN.HOSP.TC ---
Today's Communication/Plan
-
Consult cardiology
Discontinue antibiotics
Assessment / Plan
Assessment / Plan
Acute hypoxemic respiratory failure heart rate at documented SpO2 of 84% on room air
Chronic nocturnal hypoxemia at home requiring o2 at night only-patient attributes to sleep apnea
Unclear etiology for hypoxia.
Chest x-ray without evidence of pneumonia.
There could be possibility of aspiration pneumonitis as her symptoms started next day after cardioversion. She had new cough and weakness with fevers.
Chest CT shows no pneumonia but shows bilateral pleural effusion and the possibility of mild pulmonary edema. Her BNP on admission was elevated as well.
Flu neg, Covid neg
Legionella/Strep neg
Doubt PE without CP and on DOAC
Consult cardiology for optimization of diuresis and the need of repeat echo for pulmonary edema after after electrical cardioversion .
HFpEF -suspect acute decompensation
-Diuretics per cardiology
Sepsis suspected sec to possible pneumonia with a lactate of 2.2
Lactate cleared
Normalized wbc
Chest CT imaging shows no pneumonia. Hold further antibiotics.
Diarrhea-
Hold further antibiotics. Check C. difficile if persistent. Started on Imodium.
Hyponatremia
Normalized
Hypokalemia
Replete prn
IDDM
Accu checks
SSI
Long and Short acting insulin
BG 140-180
CC Diet
Hypothyroid
Continue Levothyroxine
SLE
Continue MANAGER FILTER Prednisone, Dapsone
Evoxac (for dry mouth)
Hold MANAGER FILTER Cellcept in setting of infection
Atrial Fibrillation s/p recent Cardioversion 07/13/25, paroxysmal
Eliquis
Metoprolol
?Torsades on Tele, asymptomatic, this only became concerning as a cardioloogist passing by the telemonitors told the nurse it looks like the patient is in torsades and then walked off. not sure who that communications agent was.
cards believed that the tele findings are consistent with artifact then true torsades/vt and was asymptomatic
Discussed with case management-hold on discharge
Discussed with cardiology
Anticipated Discharge: 24 - 48 hours
Subjective/Interval History
-
Date of Service: July 21, 2025
Patient feels that better is still having exertional shortness of breath. Still requiring oxygen.
No chest pain.
Having loose stools definitely more than 4 a day for the last 5 days. No nausea vomiting. No abdominal pain.
Objective Data
-
Labs:
Laboratory Results
07/21/25
04:56
WBC 8.6
Hgb 10.3 L
Hct 32.6 L
Plt Count 285
Sodium 138
Potassium 3.8
Chloride 103
Carbon Dioxide 33 H
BUN 26 H
Creatinine 0.9
Glucose 74
Calcium 8.0 L
Vital Signs:
Vital Signs
Temp Pulse Resp BP Pulse Ox
98.0 F 84 16 142/60 97
07/21/25 08:04 07/21/25 09:30 07/21/25 08:04 07/21/25 09:30 07/21/25 08:04
I&O
07/20/25 07/21/25 07/22/25
06:59 06:59 06:59
Intake Total 1360 / 1360 900 / 900
Balance 1360 / 1360 900 / 900
Physical Exam
-
General: Comfortable
Respiratory: Non Labored Respirations; Negative Wheezes, Crackles or Accessory Resp Muscle Use
Cardiac: Regular Rhythm and S1/S2; Negative Tachycardic
GI: Soft, Nontender, Nondistended and Normal Bowel Sounds
Neuro: AO x 3
Psych: Calm
Data Reviewed
-
CT Scan: Report Reviewed by me (Chest CT)
Labs: Labs Reviewed by me
--- NOTE | 2025-07-21 11:44 | W.PN.CD ---
Addendum entered and electronically signed by Tony Can MD 07/21/25 14:48:
I saw and evaluated the patient, and I provided the substantive portion of the medical decision making.
I reviewed and agree with the note by Ms Carrillonilton and it accurately reflects our care.
I personally performed the medical decision making of the this encounter and my assessment and plan is below:
Given ongoing hypoxia, pulmonary congestion, and abdominal fullness --> IV diuresis
Original Note:
Today's Communication / Plan
-
Reconsulted by primary service for hypoxemia.
CT with pulmonary vascular congestion.
Furosemide 80 mg x 1 now
Impression / Plan
-
I/P: 74F with severe s/p TAVR complicated by valve shift into LVOT, moderate MS, mild/moderate MR, chronic HFpEF, paroxysmal atrial fibrillation on apixaban, complete heart block status post PPM, CVA (1998, in the setting of vasculitis),
dyslipidemia, hypertension, type 2 diabetes mellitus, GERD, morbid obesity, restrictive lung disease, BERNIE on CPAP, and lupus on chronic steroids presented with shortness of breath 2 days after DCCV. She was febrile.
Primary health records technology teacher: Dr. Hernandez
Acute hypoxemic respiratory failure
- Initially in the setting of PNA which has been treated
- Likely in the setting of pulmonary edema, plan as below
HFpEF, acute on chronic
- Furosemide was on hold with acute infection
- Her weight is not significantly above her dry weight but, she is hypoxic and CT with small bilateral pleural effusions in addition to signs of pulmonary edema
- Diuresis with furosemide 80 mg IV twice daily, this requires intensive monitoring
- Can consider SGLT2, she had an abnormal UA on admission but no growth on urine culture
- On potassium supplementation as an outpatient, consider spironolactone
- Update echocardiogram today
- Trend daily weight, I/O, and BMP with diuresis
Paroxysmal atrial fibrillation/flutter
- S/p DCCV with 200 J successfully restoring sinus rhythm from atrial flutter
- Continue metoprolol
- Oral anticoagulation: Apixaban 5 mg twice daily
Sepsis, in the setting of pneumonia - resolved
- Leukocytosis with lactic acidosis and febrile
- Blood cultures without growth
- Antibiotics per primary service
Severe aortic stenosis s/p TAVR complicated by valve shift into LVOT
- Update echocardiogram
Permanent pacemaker, stable, followed in our device clinic as an outpatient
Mitral stenosis, moderate, MG 7 mmHg
HTN, chronic and stable
Type 2 diabetes mellitus, with hyperglycemia, HgbA1c 7.4%, per primary
SLE, on prednisone, CellCept on hold in the setting of infection
Obesity, BMI 34, she would benefit from weight loss
SUBJECTIVE:
Denies chest pain, dizziness, and MCCANN.
No bilateral lower extremity edema, she does not usually get peripheral edema. Her usual symptom is abdominal fullness which she has.
DATA:
Transthoracic echocardiogram, 12/02/2024:
CONCLUSIONS
Normal biventricular size and systolic function without regional wall motion
abnormality.
Moderate mitral stenosis, mean gradient 7 mmHg.
S/P TAVR, apically displaced, mean gradient 22 mmHg, mild AI.
Estimated PASP 53 mmHg.
No significant change since the prior study of 11/15/2023 TAVR gradient has
increased from 11 mmHg to 22 mmHg, mild AR is new.
Physical Exam
Vital Signs/Labs
Vital Signs
Temp Pulse Resp BP Pulse Ox
98.0 F 84 16 142/60 97
07/21/25 08:04 07/21/25 09:30 07/21/25 08:04 07/21/25 09:30 07/21/25 08:04
07/20/25 07/21/25 07/22/25
06:59 06:59 06:59
Actual Weight 209 lb 6 oz 207 lb 6 oz
07/21/25 04:56
07/21/25 04:56
Magnesium 1.9 mg/dl (1.6-2.3) 07/16/25 05:05
07/15/25
12:22
Sgw-R-Cuzqcigqboe Pept 3260
Physical Exam
Constitutional: No acute distress and Comfortable
EENT: Anicteric and Moist mucous membranes
Cardiovascular: Rhythm & rate is regular, Pedal edema is absent and Systolic murmur present
Respiratory: Respiratory effort normal and Lungs clear to auscul.
GI: Soft, Distention absent, Non tender and Normal bowel sounds
Neuro/Psych: AO x 3
Other: Skin (Warm and dry without edema)
Data Reviewed
-
Date of Service: July 21, 2025
EKG: Report Reviewed by me
Echo: Ordered by me
Labs: Labs Reviewed by me
Old Records: Reviewed
[2025-07-21 12:20] LABS: Glucose - Point of Care 200 mg/dl (70-99)
[2025-07-21] MEDS: NOVOLOG FLEXPEN-LOW RESISTANCE 2 UNITS SC (13:20)
[2025-07-21 15:05] VITALS: BP 149/72
[2025-07-21] MEDS: LASIX 80 MG IV (15:17)
[2025-07-21 15:47] VITALS: PULSE 86; O2SAT 96
[2025-07-21 16:35] LABS: Glucose - Point of Care 104 mg/dl (70-99)
[2025-07-21] MEDS: PEPCID 20 MG PO (21:04)
[2025-07-21] MEDS: DESYREL 100 MG PO (21:04)
[2025-07-21] MEDS: CRESTOR 10 MG PO (21:04)
[2025-07-21 21:19] LABS: Glucose - Point of Care 225 mg/dl (70-99)
[2025-07-21 23:34] VITALS: BP 139/73
[2025-07-22 04:50] LABS: Hematocrit 32.1 % (37.0-47.0); Hemoglobin 10.3 g/dL (12.0-16.0); Mean Corp Hgb Conc. 32.1 g/dL (33.0-37.0); Mean Corpuscular Volume 88.2 fL (81.0-99.0); Platelet Count 306 10^3/uL (130-400); Red Cell Dist. Width 13.6 % (11.5-14.5)
[2025-07-22 05:48] LABS: Blood Urea Nitrogen 26 mg/dl (7-17); Calcium 8.0 mg/dl (8.4-10.2); Carbon Dioxide 32 mmol/L (22-30); Chloride 100 mmol/L (98-107); Estimated Creatinine Clearance 60 ml/min; Glucose 104 mg/dl (70-99); Potassium 3.4 mmol/L (3.5-5.1); Sodium 137 mmol/L (135-145); eGFR > 60.00
[2025-07-22 05:54] VITALS: BMI 33.9
[2025-07-22] MEDS: SYNTHROID 137 MCG PO (06:09)
[2025-07-22 07:00] VITALS: BP 142/66
[2025-07-22] MEDS: ELIQUIS 5 MG PO (08:28)
[2025-07-22] MEDS: FLORASTOR 250 MG PO (08:28)
[2025-07-22] MEDS: EFFEXOR XR 300 MG PO (08:28)
[2025-07-22] MEDS: MUCINEX 600 MG PO (08:28)
[2025-07-22] MEDS: DELTASONE 6 MG PO (08:28)
[2025-07-22] MEDS: TEGRETOL 200 MG PO (08:28)
[2025-07-22] MEDS: DAPSONE 25 MG PO (08:28)
[2025-07-22] MEDS: ROCALTROL 0.5 MCG PO (08:28)
[2025-07-22] MEDS: METAMUCIL, KONSYL PO (08:29)
[2025-07-22] MEDS: LANTUS 0.24 UNITS SC (08:30)
[2025-07-22] MEDS: DESENEX/MITRAZOL/ZEASORB 1 APPLIC TOPICAL (08:31)
[2025-07-22] MEDS: LOPRESSOR 50 MG PO (08:37)
[2025-07-22] MEDS: NOVOLOG FLEXPEN-LOW RESISTANCE SC (08:38)
[2025-07-22 08:39] LABS: Glucose - Point of Care 103 mg/dl (70-99)
--- NOTE | 2025-07-22 10:16 | W.PN.CD ---
Today's Communication / Plan
-
she feels better s/p IV lasix, but still need to wean oxygen
-if unable to wean oxygen: give another dose 80mg IV lasix
-if able to wean oxygen: discharge planning on lasix 60mg PO daily, farxiga 10mg daily (resumed today)
Impression / Plan
-
I/P: 74F with severe s/p TAVR complicated by valve shift into LVOT, moderate MS, mild/moderate MR, chronic HFpEF, paroxysmal atrial fibrillation on apixaban, complete heart block status post PPM, CVA (1998, in the setting of vasculitis),
dyslipidemia, hypertension, type 2 diabetes mellitus, GERD, morbid obesity, restrictive lung disease, BERNIE on CPAP, and lupus on chronic steroids presented with shortness of breath 2 days after DCCV. She was febrile.
Primary pet caregiver: Dr. Hernandez
HFpEF, acute on chronic
- Furosemide was on hold with acute infection
- Her weight is not significantly above her dry weight but, she was hypoxic and CT with small bilateral pleural effusions in addition to signs of pulmonary edema
- echo 07/21: EF 55-60%, TAVR (mean 11, mild AR), moderate TR, PASP 46
-she feels better s/p IV lasix, but still need to wean oxygen
-if unable to wean oxygen: give another dose 80mg IV lasix
-if able to wean oxygen: discharge planning on lasix 60mg PO daily, farxiga 10mg daily (resumed today)
Paroxysmal atrial fibrillation/flutter
- S/p DCCV with 200 J successfully restoring sinus rhythm from atrial flutter
- Continue metoprolol
- Oral anticoagulation: Apixaban 5 mg twice daily
Sepsis, in the setting of pneumonia - resolved
- Leukocytosis with lactic acidosis and febrile
- Blood cultures without growth
- Antibiotics per primary service
Severe aortic stenosis s/p TAVR complicated by valve shift into LVOT
- stable on echo
Permanent pacemaker, stable, followed in our device clinic as an outpatient
Mitral stenosis, moderate, MG 7 mmHg
HTN, chronic and stable
Type 2 diabetes mellitus, with hyperglycemia, HgbA1c 7.4%, per primary
SLE, on prednisone, CellCept on hold in the setting of infection
Obesity, BMI 34, she would benefit from weight loss
DATA:
Transthoracic echocardiogram, 12/02/2024:
CONCLUSIONS
Normal biventricular size and systolic function without regional wall motion
abnormality.
Moderate mitral stenosis, mean gradient 7 mmHg.
S/P TAVR, apically displaced, mean gradient 22 mmHg, mild AI.
Estimated PASP 53 mmHg.
No significant change since the prior study of 11/15/2023 TAVR gradient has
increased from 11 mmHg to 22 mmHg, mild AR is new.
Physical Exam
Vital Signs/Labs
Vital Signs
Temp Pulse Resp BP Pulse Ox
98.4 F 72 18 142/66 97
07/22/25 07:00 07/22/25 08:37 07/22/25 07:00 07/22/25 08:37 07/22/25 07:00
07/21/25 07/22/25 07/23/25
06:59 06:59 06:59
Actual Weight 94.064 kg 92.334 kg
07/22/25 04:17
07/22/25 04:17
Magnesium 1.9 mg/dl (1.6-2.3) 07/16/25 05:05
07/15/25
12:22
Srm-V-Jeuwqymuaob Pept 3260
Physical Exam
Constitutional: No acute distress and Comfortable
EENT: Moist mucous membranes
Cardiovascular: Rhythm & rate is regular, Pedal edema is absent, JVD pressure is normal and Systolic murmur absent
Respiratory: Respiratory effort normal and Lungs clear to auscul.
Neuro/Psych: AO x 3
Data Reviewed
-
Date of Service: July 22, 2025
Medical Tests (PFT, Pathology etc): Report Reviewed by me (echo per note)
Labs: Labs Reviewed by me
--- NOTE | 2025-07-22 11:27 | W.PN.HOSP.TC ---
Today's Communication/Plan
-
Check home O2 eval
DC plan
Assessment / Plan
Assessment / Plan
Acute hypoxemic respiratory failure heart rate at documented SpO2 of 84% on room air
Chronic nocturnal hypoxemia at home requiring o2 at night only-patient attributes to sleep apnea
Unclear etiology for hypoxia.
Chest x-ray without evidence of pneumonia.
There could be possibility of aspiration pneumonitis as her symptoms started next day after cardioversion. She had new cough and weakness with fevers.
Chest CT shows no pneumonia but shows bilateral pleural effusion and the possibility of mild pulmonary edema. Her BNP on admission was elevated as well.
Flu neg, Covid neg
Legionella/Strep neg
Doubt PE without CP and on DOAC
Appreciate cardiology input. Echo report noted.
Improved symptom and weight with IV Lasix. Continue with IV diuresis per cardiology.
Wean oxygen as able.
HFpEF -suspect acute decompensation
-Diuretics per cardiology
Sepsis suspected sec to possible pneumonia with a lactate of 2.2
Lactate cleared
Normalized wbc
Chest CT imaging shows no pneumonia. Hold further antibiotics.
Diarrhea-
Hold further antibiotics. Check C. difficile if persistent. Started on Imodium.
Hyponatremia
Normalized
Hypokalemia
Replete prn
IDDM
Accu checks
SSI
Long and Short acting insulin
BG 140-180
CC Diet
Hypothyroid
Continue Levothyroxine
SLE
Continue CW OPERATOR Prednisone, Dapsone
Evoxac (for dry mouth)
Hold CW OPERATOR Cellcept in setting of infection
Atrial Fibrillation s/p recent Cardioversion 07/13/25, paroxysmal
Eliquis
Metoprolol
?Torsades on Tele, asymptomatic, this only became concerning as a cardioloogist passing by the telemonitors told the nurse it looks like the patient is in torsades and then walked off. not sure who that corporate communications specialist was.
cards believed that the tele findings are consistent with artifact then true torsades/vt and was asymptomatic
Discussed with cardiology-if hypoxia resolved will switch to oral Lasix and DC patient.
Anticipated Discharge: Today
Subjective/Interval History
-
Date of Service: July 22, 2025
Feels much better with IV Lasix. She urinated a lot. Weight is down. Improved breathing with exertion.
Denies chest pain. No dizziness. Denies nausea vomiting or diarrhea today.
Objective Data
-
Labs:
Laboratory Results
07/22/25
04:17
WBC 7.9
Hgb 10.3 L
Hct 32.1 L
Plt Count 306
Sodium 137
Potassium 3.4 L
Chloride 100
Carbon Dioxide 32 H
BUN 26 H
Creatinine 0.9
Glucose 104 H
Calcium 8.0 L
Vital Signs:
Vital Signs
Temp Pulse Resp BP Pulse Ox
98.4 F 72 18 142/66 97
07/22/25 07:00 07/22/25 08:37 07/22/25 07:00 07/22/25 08:37 07/22/25 07:00
I&O
07/21/25 07/22/25 07/23/25
06:59 06:59 06:59
Intake Total 900 / 900 1200 / 1200
Balance 900 / 900 1200 / 1200
Physical Exam
-
General: No Apparent Distress
HEENT: Moist Mucous Membranes
Respiratory: Clear to Auscultation and Non Labored Respirations; Negative Accessory Resp Muscle Use
Cardiac: Regular Rhythm and S1/S2; Negative Tachycardic
GI: Soft
Neuro: AO x 3
Data Reviewed
-
Labs: Labs Reviewed by me
[2025-07-22] MEDS: FARXIGA 10 MG PO (11:40)
[2025-07-22] MEDS: KCL 40 MEQ PO (11:40)
[2025-07-22 12:36] LABS: Glucose - Point of Care 200 mg/dl (70-99)
[2025-07-22] MEDS: NOVOLOG FLEXPEN-LOW RESISTANCE 2 UNITS SC (13:09)
--- NOTE | 2025-07-22 13:33 | W.DCSUMMARY ---
Discharge Summary
Discharge Data
Date of Admission: 07/15/25
Date of Discharge: 07/22/25
-
Pending Results: No
Hospital Course
Primary diagnosis:
Acute on chronic heart failure with preserved EF
Acute hypoxic respiratory failure-resolved
Secondary diagnosis:
Aortic stenosis status post TAVR
Atrial fibrillation status post cardioversion 07/13/2025
History of metastatic melanoma
Systemic lupus erythematosus
Diabetes mellitus type 2
Obstructive sleep apnea on night O2
Hospital course:
Patient presented a day after cardioversion. She felt weak and more short of breath and had a nonproductive cough. She also had a fever. COVID was 11.9. Initial clinical concern was pneumonic process including aspiration pneumonia/pneumonitis.
Chest x-ray was negative. She was also hypoxic 87% on room air. She normally uses oxygen at night in lieu of CPAP for obstructive sleep apnea. Denies any primary lung issues. Despite treatment for possible pneumonia she continued to feel short
of breath with minimal exertion and remained hypoxic. Her BNP was. A CT chest was then which showed a mild pulmonary edema. She was put on IV diuretics with significant diuresis and loss of weight and resolution of her hypoxia and shortness of
breath. It was felt she had a episode of acute on chronic heart failure post cardioversion. Echocardiogram showed normal EF with mildly dilated RV but normal RV function. Was seen by cardiology. Was advised to resume Lasix as before.
Consultants on board:
Cardiology-Tony Henriquez
Portions of this chart may have been created with voice recognition software. Occasional wrong word or 'sound alike' substitutions may have occurred due to the inherent limitations of voice recognition software.
Discharge Plan
-
Patient Disposition: Home (Routine Discharge)
Discharge Diagnosis/Procedures: Acute on chronic heart failure with preserved EF; acute hypoxic respiratory failure which resolved
Diet: 2 Gram Sodium
Activity: As tolerated
Driving Restrictions: As prior to admission
Bathing Restrictions: None
Specialty Instructions: Weigh Daily- Call MD for wt gain/loss 3 lbs overnight/5 lbs in 1 week
Referrals:
Susana Melendez MD [Family Provider, Internal Medicine] - in less than 1 week
Irais Field CRNP [Specified Professional Personl, Cardiology] - 08/12/25 3:40 pm
Prescriptions:
New
nystatin 100,000 unit/mL Suspension
5 ml PO QID Qty: 60 0RF
Rx Instructions:
for 5 days
Continued
cevimeline [Evoxac] 30 MG capsule
30 mg PO BID
venlafaxine [Effexor XR] 150 mg Capsule,Extended Release 24hr
300 mg PO DAILY
mycophenolate mofetil [CellCept] 500 mg Tablet
1,000 mg PO BID
dapsone 25 mg tablet
25 mg PO BID
carbamazepine [Tegretol] 200 mg tablet
200 mg PO BID
levothyroxine 137 mcg Tablet
137 mcg PO DAILY AT 0700
trazodone 100 mg Tablet
100 mg PO HS
metoprolol tartrate 100 mg Tablet
50 mg PO BID
ergocalciferol (vitamin D2) 1,250 mcg (50,000 unit) Capsule
1,250 mcg PO CENTENO
insulin lispro [Humalog KwikPen Insulin] 100 unit/mL Insulin Pen
5 unit SC BID
potassium chloride 20 mEq Packet
20 meq PO MOWEFR
prednisone 1 mg Tablet
6 mg PO DAILY
Eliquis 5 mg tablet
5 mg PO BID
dapagliflozin propanediol [Farxiga] 10 mg tablet
10 mg PO DAILY
Gemtesa 75 mg Tablet
75 mg PO DAILY
therapeutic multivitamin Tablet
1 tab PO DAILY
calcitriol 0.5 mcg Capsule
0.5 mcg PO DAILY
furosemide 20 mg Tablet
60 mg PO DAILY
rosuvastatin 10 mg Tablet
10 mg PO HS
Saccharomyces boulardii [Florastor] 250 mg Capsule
250 mg PO DAILY
famotidine 20 mg tablet
20 mg PO HS
psyllium Packet
1 packet PO DAILY
Changed
insulin glargine U-300 conc [Toujeo SoloStar U-300 Insulin] 300 unit/mL (1.5 mL) Insulin Pen
24 unit SC DAILY Qty: 0 0RF
Discharge Orders:
Discharge Patient (As Directed); Ordered 07/22/25
Ordered By: Prasanth Youngblood
Discharge Date and Time
Print Language: HONG KONGER
[2025-07-22 15:00] VITALS: BP 164/73
--- NOTE | 2025-07-22 15:09 | CM ---
Chart reviewed. Patient stable to d/c home today
Updated home O2 assessment- no continuous O2 needs
PT rec return to OP PT
Met w/ patient bedside, agreeable to d/c. Daughter will transport
IMM verbally reviewed, copy provided, copy on chart
Declined HC needs
Plan: Home, no needs
== END 2025-07-22 17:15 | disposition home or self-care (01) | DRG 871 ==
LOC: 4 WEST ACU 18:45
PROVIDERS: Hospitalist; Physician Assistant; Student in an Organized Health Care Education/Training Program; ADMITTING PHYSICIAN Student in an Organized Health Care Education/Training Program; ATTENDING PHYSICIAN Internal Medicine; CONSULT PHYSICIAN Internal Medicine Cardiovascular Disease; EMERGENCY PHYSICIAN Emergency Medicine; FAMILY PHYSICIAN Student in an Organized Health Care Education/Training Program
DX: A41.51 Sepsis due to Escherichia coli [E. coli] (principal); I50.33 Acute on chronic diastolic (congestive) heart failure; J96.21 Acute and chronic respiratory failure with hypoxia; J18.9 Pneumonia, unspecified organism; E87.1 Hypo-osmolality and hyponatremia; Z11.52 Encounter for screening for COVID-19; E11.36 Type 2 diabetes mellitus with diabetic cataract; M32.19 Other organ or system involvement in systemic lupus erythematosus; C43.9 Malignant melanoma of skin, unspecified; E03.9 Hypothyroidism, unspecified; K21.9 Gastro-esophageal reflux disease without esophagitis; F32.A Depression, unspecified; E87.6 Hypokalemia; R65.20 Severe sepsis without septic shock; I11.0 Hypertensive heart disease with heart failure; Z79.01 Long term (current) use of anticoagulants; Z79.4 Long term (current) use of insulin; Z79.899 Other long term (current) drug therapy
CPT/HCPCS: 71046; 71250; 80048; 80053; 81003; 81015; 82962; 83036; 83605; 83735; 83880; 85025; 85027; 87040; 87070; 87086; 87449; 87502; 87811; 87899; 93005; 93306; 96361; 96374; 97116; 97161; 97530; 99285

== ENCOUNTER → 2025-08-03 16:21 | Outpatient (REF) | payer MEDICARE, OTHER, SELFPAY ==
[2025-08-03 16:52] LABS: Hematocrit 36.4 % (37.0-47.0); Hemoglobin 11.6 g/dL (12.0-16.0); Mean Corp Hgb Conc. 31.9 g/dL (33.0-37.0); Mean Corpuscular Volume 91.0 fL (81.0-99.0); Nucleated Red Blood Cells % 0 %; Platelet Count 287 10^3/uL (130-400); Red Cell Dist. Width 13.6 % (11.5-14.5)
[2025-08-03 17:22] LABS: ALT (SGPT) 29 U/L (0-35); AST (SGOT) 27 U/L (14-36); Albumin 4.2 g/dl (3.5-5.0); Alkaline Phosphatase 197 U/L (38-126); Blood Urea Nitrogen 29 mg/dl (7-17); Calcium 9.6 mg/dl (8.4-10.2); Carbon Dioxide 30 mmol/L (22-30); Chloride 97 mmol/L (98-107); Glucose 182 mg/dl (70-99); Potassium 4.2 mmol/L (3.5-5.1); Sodium 135 mmol/L (135-145); Total Protein 6.7 g/dl (6.3-8.2); eGFR 58.39
== END ==
LOC: REG 16:21
PROVIDERS: ATTENDING PHYSICIAN Student in an Organized Health Care Education/Training Program
DX: I50.32 Chronic diastolic (congestive) heart failure (principal); D80.3 Selective deficiency of immunoglobulin G [IgG] subclasses
CPT/HCPCS: 36415; 80053; 83880; 85025

== ENCOUNTER → 2025-08-07 09:46 | Outpatient (REF) | payer MEDICARE, OTHER, SELFPAY | LOC: RAD 09:46 | PROVIDERS: ATTENDING PHYSICIAN Student in an Organized Health Care Education/Training Program | DX: D72.829 Elevated white blood cell count, unspecified (principal); R05.3 Chronic cough | CPT/HCPCS: 71250 ==

== ENCOUNTER 2025-08-17 10:31 | Outpatient (RCR) | payer MEDICARE, OTHER, SELFPAY ==
[2025-08-17] VITALS (10 sets, daily range): BP systolic 107–145; BP diastolic 49–71; BMI 32.8
[2025-08-17] MEDS: BENADRYL 25 MG PO (11:13)
[2025-08-17] MEDS: TYLENOL 650 MG PO (11:13)
[2025-08-17] MEDS: GAMMAGARD 50 IV (11:14)
[2025-08-17] MEDS: GAMMAGARD 200 IV ×2 (12:20→13:42)
== END 2025-08-18 09:27 | disposition home or self-care (01) ==
LOC: OID 10:31
PROVIDERS: ATTENDING PHYSICIAN Allergy & Immunology
DX: D80.8 Other immunodeficiencies with predominantly antibody defects (principal); D80.3 Selective deficiency of immunoglobulin G [IgG] subclasses; I48.0 Paroxysmal atrial fibrillation; M32.9 Systemic lupus erythematosus, unspecified; N18.31 Chronic kidney disease, stage 3a; I50.32 Chronic diastolic (congestive) heart failure; E27.40 Unspecified adrenocortical insufficiency
CPT/HCPCS: 36591; 82784; 96365; 96366; J1569